=== PATIENT | female | born 1955 | race Caucasian/White ===

== ENCOUNTER → 2017-05-29 09:25 | Outpatient (CLI) | payer OTHER, SELFPAY ==
--- NOTE | 2017-05-29 09:28 | HPBI_ITS ---
MAMMOGRAPHY - BILATERAL SCREENING REASON FOR EXAM: Female, 61 years old. Routine annual screening examination. PERTINENT HISTORY: Non-contributory. TECHNIQUE: Digital bilateral breast marilee (3D mammographic acquisition) in the CC and MLO projections. 2-D mediolateral oblique (MLO) and craniocaudad (CC) views of both breasts were obtained. CAD: Full Field Digital Mammography with Computer Added Detection was performed. COMPARISON: Comparison is made with prior study dated March 14, 2016 and November 25, 2014. FINDINGS: Breast Composition: There are scattered areas of fibroglandular density. There are no dominant masses or suspicious calcifications. No other significant abnormalities are identified. There has been no significant change since the prior study. HPBI/SCREENING MAMM (CAD), BILAT IMPRESSION: Stable bilateral screening mammogram. Yearly follow-up mammogram recommended. (A) ASSESSMENT CATEGORY: BIRADS Category 1: Negative. A letter regarding these results will be sent to the patient by the facility within 30 days. Approximately 10% of breast cancers are not detected by mammography. A normal mammogram should not delay biopsy of a clinically suspicious abnormality. [id number] Electronically Signed: Joss Escalante MD at 9:26 EST Tel [phone], Service support ,
== END ==
PROVIDERS: Family Provider Family Medicine; PCP Family Medicine; Visit Provider Obstetrics & Gynecology
DX: Z12.31 Encounter for screening mammogram for malignant neoplasm of breast (principal)
CPT/HCPCS: 77063; 77067

== ENCOUNTER → 2018-10-20 | Outpatient (CLI) | payer OTHER, SELFPAY ==
[2018-10-20 17:54] LABS: Vitamin D,25 Hydroxy 71.1 ng/mL (29.95-100.01)
[2018-10-27 13:02] LABS: HPV Reflexed? NOT INDICATED
== END | disposition home or self-care (01) ==
LOC: LABSPEC 15:46
PROVIDERS: Visit Provider Obstetrics & Gynecology
DX: Z86.39 Personal history of other endocrine, nutritional and metabolic disease (principal); Z12.4 Encounter for screening for malignant neoplasm of cervix
CPT/HCPCS: 82306; 88175; G0145

== ENCOUNTER → 2018-11-07 | Outpatient (CLI) | payer OTHER, SELFPAY ==
--- NOTE | 2018-11-07 14:58 | BI_ITS ---
MAMMOGRAPHY - BILATERAL SCREENING 3-D TOMOSYNTHESIS REASON FOR EXAM: Female, 63 years old. Bilateral Screening 3-D tomosynthesis PERTINENT HISTORY: No significant family history. TECHNIQUE: 2-D mammograms and 3-D Tomosynthesis of the breast (s) were performed. CAD was performed. COMPARISON: None. FINDINGS: The breast composition is composed of scattered fibroglandular density. Scattered benign calcifications are seen. No dense spiculated masses or suspicious microcalcifications are identified, stable lucent centered calcifications in both breasts.. No architectural distortion is identified. There is no skin thickening or retraction. There has been no significant change since the prior study. BI/SCREEN MAMM (CAD) W/JOESPH BILAT IMPRESSION: No mammographic signs of malignancy. Routine yearly mammograms recommended. ASSESSMENT CATEGORY: BIRADS Category 1: Negative. A letter regarding these results will be sent to the patient by the facility within 30 days. FOLLOW UP RECOMMENDATION: Yearly follow up mammogram recommended. (A) Approximately 10% of breast cancers are not detected by mammography. A normal mammogram should not delay biopsy of a clinically suspicious abnormality. Electronically Signed: Jem Rubio MD at 7:55 EDT , Service support ,
== END | disposition home or self-care (01) ==
LOC: OPBI 14:57
PROVIDERS: Family Provider Family Medicine; PCP Family Medicine; Referring Provider Obstetrics & Gynecology; Visit Provider Obstetrics & Gynecology
DX: Z12.31 Encounter for screening mammogram for malignant neoplasm of breast (principal)
CPT/HCPCS: 77063; 77067

== ENCOUNTER → 2019-04-07 15:57 | Outpatient (CLI) | payer OTHER, SELFPAY ==
--- NOTE | 2019-04-07 16:02 | BD_ITS ---
STUDY: DUAL ENERGY X-RAY ABSORPTIOMETRY / DXA REASON FOR EXAM: Female, 63 years old. Early menopause. No loss of height. TECHNIQUE: Bone Mineral Density (BMD) measurements of lumbar spine and bilateral hips were obtained. COMPARISON: Comparison is made with prior examination dated April 04, 2017. FINDINGS: Lumbar Spine (L1-L4): g/cm2 (0.973) / T-score (-1.6) / Z-score (-0.1) Findings are suggestive of osteopenia with a moderate fracture risk. Left Femur Total: g/cm2 (0.866) / T-score (-1.1) / Z-score (0.0) Left Femoral Neck: g/cm2 (0.727) / T-score (-2.2) / Z-score (-0.8) Right Femur Total: g/cm2 (0.922) / T-score (-0.7) / Z-score (0.4) Right Femoral Neck: g/cm2 (0.768) / T-score (-1.9) / Z-score (-0.5) The T-Scores on the most recent prior examination were: Lumbar Spine (L1-L4): There has been improvement of bone density since the previous examination. Left Femur Total: which represents a worsening of 9.4%. Right Femur Total: which represents a worsening of 7%. BD/Dexa Bone Density Study IMPRESSION: The patient is considered osteopenic as outlined below according to World Seven Organization (WHO) criteria with a moderate fracture risk. There has been worsening of bone density since the previous examination. Reference Information: The T-score is the number of standard deviations above or below the standard which is normal for young adults at their peak bone mineral density. The World Health Organization (WHO) interprets the T-scores as follows: Above -1 Normal bone density Between -1 and -2.5 Osteopenia Equal to / or below -2.5 Osteoporosis As a practical clinical guideline, osteopenia may be graded as follows: Mild -1 through -1.5 Moderate -1.6 through -2.0 Severe -2.1 through -2.4 The Z-score is the number of standard deviations above or below age-matched controls. A Z-score of less than -1.5 would be considered abnormal. References: 1. NIH Osteoporosis and Related Bone Diseases http://www.osteo.org 2. International Society for Clinical Densitometry http://www.iscd.org 3. National Osteoporosis Foundation http://www.nof.org Electronically Signed: Joss Escalante, at 9:55 EST , Service support ,
== END ==
PROVIDERS: Family Provider Family Medicine; PCP Family Medicine; Referring Provider Obstetrics & Gynecology; Visit Provider Obstetrics & Gynecology
DX: M85.9 Disorder of bone density and structure, unspecified (principal); Z78.0 Asymptomatic menopausal state
CPT/HCPCS: 77080

== ENCOUNTER → 2020-08-24 13:58 | Outpatient (CLI) | payer MEDICARE, SELFPAY ==
--- NOTE | 2020-08-24 14:01 | BI_ITS ---
MAMMOGRAPHY - BILATERAL SCREENING REASON FOR EXAM: Female, 65 years old. Routine annual screening examination. PERTINENT HISTORY: Non-contributory. TECHNIQUE: Digital bilateral breast joepsh (3D mammographic acquisition) in the CC and MLO projections. 2-D mediolateral oblique (MLO) and craniocaudad (CC) views of both breasts were obtained. CAD: Full Field Digital Mammography with Computer Added Detection was performed. COMPARISON: Comparison is made with prior examination dated 11/07/2018 and 05/29/2017. FINDINGS: Breast Composition: There are scattered areas of fibroglandular density. There are no dominant masses or suspicious calcifications. No other significant abnormalities are identified. There has been no significant change since the prior study. BI/SCRN MAMM (CAD)W/JOESPH BILAT IMPRESSION: Stable bilateral screening mammogram. Yearly follow-up mammogram recommended. (A) ASSESSMENT CATEGORY: BIRADS Category 1: Negative. A letter regarding these results will be sent to the patient by the facility within 30 days. Approximately 10% of breast cancers are not detected by mammography. A normal mammogram should not delay biopsy of a clinically suspicious abnormality. [id number] Electronically Signed: Joss Escalante MD at 15:13 EDT , Service support ,
== END ==
PROVIDERS: PCP Family Medicine; Referring Provider Obstetrics & Gynecology; Visit Provider Obstetrics & Gynecology
DX: Z12.31 Encounter for screening mammogram for malignant neoplasm of breast (principal)
CPT/HCPCS: 77063; 77067

== ENCOUNTER → 2020-11-15 | Outpatient (CLI) | payer MEDICARE, SELFPAY ==
[2020-11-18 20:18] LABS: HPV APTIMA, High Risk Negative (Negative)
== END | disposition home or self-care (01) ==
LOC: LABSPEC 12:14
PROVIDERS: PCP Family Medicine; Visit Provider Obstetrics & Gynecology
DX: Z12.4 Encounter for screening for malignant neoplasm of cervix (principal); Z11.51 Encounter for screening for human papillomavirus (HPV)
CPT/HCPCS: 87624; 88175; G0145

== ENCOUNTER → 2021-03-28 | Outpatient (CLI) | payer MEDICARE, SELFPAY | END | disposition home or self-care (01) | LOC: LABSPEC 11:18 | PROVIDERS: PCP Family Medicine; Visit Provider Obstetrics & Gynecology | DX: R87.615 Unsatisfactory cytologic smear of cervix (principal) | CPT/HCPCS: 88175; G0145 ==

== ENCOUNTER → 2021-04-11 09:10 | Outpatient (CLI) | payer MEDICARE, SELFPAY ==
--- NOTE | 2021-04-11 09:17 | BD_ITS ---
STUDY: DUAL ENERGY X-RAY ABSORPTIOMETRY / DXA REASON FOR EXAM: Female, 65 years old. 733.00OsteoporosisBONE DENSITY REASON FOR EXAM TECHNIQUE: Bone Mineral Density (BMD) measurements of lumbar spine and bilateral hips were obtained. COMPARISON: Comparison is made with prior study of 04/07/2019. FINDINGS: Lumbar Spine (L1-L4): g/cm2 (0.775) / T-score (-2.2) / Z-score (-0.4) Findings are suggestive of osteopenia with a high fracture risk. Left Femur Total: g/cm2 (0.795) / T-score (-1.2) / Z-score (0.1) Left Femoral Neck: g/cm2 (0.594) / T-score (-2.3) / Z-score (-0.7) Right Femur Total: g/cm2 (0.777) / T-score (-1.4) / Z-score (-0.1) Right Femoral Neck: g/cm2 (0.635) / T-score (-1.9) / Z-score (-0.4) The T-Scores on the most recent prior examination were: Lumbar Spine (L1-L4): There has been worsening of bone density since the previous examination. Left Femur Total: which represents a worsening of 1.2%. Right Femur Total: which represents a worsening of 9.4%. BD/Dexa Bone Density Study IMPRESSION: The patient is considered osteopenic as outlined below according to World Seven Organization (WHO) criteria with a high fracture risk. There has been worsening of bone density since the previous examination. Reference Information: The T-score is the number of standard deviations above or below the standard which is normal for young adults at their peak bone mineral density. The World Health Organization (WHO) interprets the T-scores as follows: Above -1 Normal bone density Between -1 and -2.5 Osteopenia Equal to / or below -2.5 Osteoporosis As a practical clinical guideline, osteopenia may be graded as follows: Mild -1 through -1.5 Moderate -1.6 through -2.0 Severe -2.1 through -2.4 The Z-score is the number of standard deviations above or below age-matched controls. A Z-score of less than -1.5 would be considered abnormal. References: 1. NIH Osteoporosis and Related Bone Diseases www osteo.org 2. International Society for Clinical Densitometry www iscd.org 3. National Osteoporosis Foundation www nof.org Electronically Signed: Joss Escalante MD at 15:42 EST , Service support ,
== END ==
PROVIDERS: PCP Family Medicine; Referring Provider Obstetrics & Gynecology; Visit Provider Obstetrics & Gynecology
DX: M81.0 Age-related osteoporosis without current pathological fracture (principal); Z13.820 Encounter for screening for osteoporosis
CPT/HCPCS: 77080

== ENCOUNTER 2021-11-16 16:01 | Outpatient (CLI) | payer MEDICARE, SELFPAY ==
--- NOTE | 2021-11-16 16:04 | BI_ITS ---
MAMMOGRAPHY - BILATERAL SCREENING REASON FOR EXAM: Female, 66 years old. Routine annual screening examination. PERTINENT HISTORY: Non-contributory. TECHNIQUE: Digital bilateral breast joesph (3D mammographic acquisition) in the CC and MLO projections. 2-D mediolateral oblique (MLO) and craniocaudad (CC) views of both breasts were obtained. CAD: Full Field Digital Mammography with Computer Added Detection was performed. COMPARISON: Comparison is made with prior study dated 08/24/2020 and 11/07/2018. FINDINGS: Breast Composition: There are scattered areas of fibroglandular density. There are no dominant masses or suspicious calcifications. Stable small benign-appearing bilateral axillary lymph nodes. No other significant abnormalities are identified. There has been no significant change since the prior study. BI/SCRN MAMM (CAD)W/JOESPH BILAT IMPRESSION: Stable bilateral screening mammogram. Yearly follow-up mammogram recommended. (A) ASSESSMENT CATEGORY: BIRADS Category 2: Benign. A letter regarding these results will be sent to the patient by the facility within 30 days. Approximately 10% of breast cancers are not detected by mammography. A normal mammogram should not delay biopsy of a clinically suspicious abnormality. [id number] Electronically Signed: Joss Escalante MD at 8:17 EDT ,
== END 2021-11-16 23:59 | disposition home or self-care (01) ==
LOC: OPBI 16:02
PROVIDERS: PCP Family Medicine; Visit Provider Obstetrics & Gynecology
DX: Z12.31 Encounter for screening mammogram for malignant neoplasm of breast (principal)
CPT/HCPCS: 77063; 77067

== ENCOUNTER → 2021-11-23 | Outpatient (CLI) | payer MEDICARE, SELFPAY ==
[2021-11-23 12:21] LABS: Absolute Lymphocyte Count 1.81 X10^3/uL (0.83-4.51); Absolute Neutrophil Count 2.6 X10^3/uL (2.0-7.7); Basophil# 0.06 X10^3/uL; Basophil% 1.2 % (0-1); Hematocrit 45.9 % (37-47); Hemoglobin 14.7 g/dL (12.0-15.0); Lymphocyte # 1.81 X10^3/ul (0.83-4.51); Lymphocyte % 35.6 % (19-41); Mean Corpuscular Volume 96.8 fL (81-99); Mean Platelet Vol. 9.9 fl (6.2-12.0); Monocyte# 0.49 X10^3/uL; Monocyte% 9.6 % (0-10); NRBC Flagged by Analyzer 0 % (0-5); Neutrophil % 51.2 % (47-70); Platelet Count 283 K/mm3 (150-450); RBC Distribution Width CV 12.7 % (11.6-14.6); RBC Distribution Width SD 45.5 fl (35.1-43.9); Red Blood Count 4.74 M/mm3 (4.2-5.4); White Blood Count 5.1 K/mm3 (4.4-11.0)
[2021-11-23 12:34] LABS: PTHIN 43.7 pg/mL (18.4-80.1)
[2021-11-23 12:38] LABS: Vitamin D,25 Hydroxy 67.9 ng/mL
[2021-11-23 12:45] LABS: ALB/GLOB Ratio 1.1 RATIO (0.9-2.4); AST(SGOT) 20 U/L (15-37); Alanine Aminotransfer ALT/SGPT 30 U/L (13-56); Alkaline Phosphatase 106 U/L (45-117); Anion Gap 4 (5-15); BUN 25 mg/dL (7-18); BUN/Creat Ratio 30.1 RATIO (10-20); Calcium,Total 9.6 mg/dL (8.5-10.1); Chloride 102 mmol/L (98-107); Creatinine, Serum 0.83 mg/dL (0.55-1.02); EST Glomerular Filtration Rate 73 mL/min (>60); Est Glom Filt Rate - Afr Amer 88 mL/min (>60); Globulin 3.6 g/dL (2.2-4.2); Glucose 114 mg/dL (74-106); Potassium 3.7 mmol/L (3.5-5.1); Protein, Total 7.6 g/dL (6.4-8.2); Sodium Level 138 mmol/L (136-145); T4 Free Direct 0.98 ng/dL (0.76-1.46); Thyroid Stim Hormone (TSH) 2.65 uIU/mL (0.358-3.74)
[2021-11-23 13:16] LABS: Hemoglobin A1c 5.9 % (3.8-5.6)
== END | disposition home or self-care (01) ==
LOC: LAB 10:49
PROVIDERS: PCP Family Medicine; Visit Provider Internal Medicine Endocrinology, Diabetes & Metabolism
DX: M85.80 Other specified disorders of bone density and structure, unspecified site (principal); E55.9 Vitamin D deficiency, unspecified; R73.09 Other abnormal glucose; E06.3 Autoimmune thyroiditis
CPT/HCPCS: 36415; 80053; 82306; 83036; 83970; 84439; 84443; 85025

== ENCOUNTER → 2022-01-03 | Outpatient (CLI) | payer MEDICARE, SELFPAY ==
[2022-01-03 15:21] VITALS: BP 129/79; PULSE 73; RESP 14; TEMP 36.1; O2SAT 96; BMI 26.4
[2022-01-03] MEDS: Zoledronic Acid 5 MG 100 ML 200 MG IV (15:38)
[2022-01-03 16:14] VITALS: BP 123/84; PULSE 71
== END | disposition home or self-care (01) ==
LOC: MEDOUTP 15:03
PROVIDERS: PCP Family Medicine; Referring Provider Internal Medicine Endocrinology, Diabetes & Metabolism; Visit Provider Internal Medicine Endocrinology, Diabetes & Metabolism
DX: M85.80 Other specified disorders of bone density and structure, unspecified site (principal)
CPT/HCPCS: 96365; J7050; A4216; J3489

== ENCOUNTER → 2022-12-26 | Outpatient (CLI) | payer MEDICARE, SELFPAY ==
[2022-12-26 11:01] LABS: Vitamin D,25 Hydroxy 92.2 ng/mL
[2022-12-26 11:06] LABS: ALB/GLOB Ratio 1.1 RATIO (0.9-2.4); AST(SGOT) 19 U/L (15-37); Alanine Aminotransfer ALT/SGPT 26 U/L (13-56); Albumin, Serum 3.8 g/dL (3.2-5.0); Alkaline Phosphatase 100 U/L (45-117); Anion Gap 4 (5-15); BUN 18 mg/dL (7-18); BUN/Creat Ratio 21.3 RATIO (10-20); Calcium,Total 9.1 mg/dL (8.5-10.1); Chloride 106 mmol/L (98-107); Cholesterol 143 mg/dL (200); Creatinine, Serum 0.85 mg/dL (0.55-1.02); EST Glomerular Filtration Rate 71 mL/min (>60); Est Glom Filt Rate - Afr Amer 86 mL/min (>60); Globulin 3.5 g/dL (2.2-4.2); Glucose 104 mg/dL (74-106); High Density Lipoprotein 78 mg/dL; Protein, Total 7.3 g/dL (6.4-8.2); Sodium Level 138 mmol/L (136-145); T4 Free Direct 0.95 ng/dL (0.76-1.46); Triglycerides 75 mg/dL; Very Low Density Lipoprotein 15 mg/dL (5-40)
[2022-12-26 11:12] LABS: Hemoglobin A1c 5.9 % (3.8-5.6)
== END | disposition home or self-care (01) ==
LOC: PAVLAB 10:12
PROVIDERS: PCP Family Medicine; Referring Provider Internal Medicine Endocrinology, Diabetes & Metabolism; Visit Provider Internal Medicine Endocrinology, Diabetes & Metabolism
DX: E06.3 Autoimmune thyroiditis (principal); M85.80 Other specified disorders of bone density and structure, unspecified site; R73.03 Prediabetes; E55.9 Vitamin D deficiency, unspecified
CPT/HCPCS: 36415; 80053; 80061; 82306; 83036; 84439; 84443

== ENCOUNTER 2023-01-04 08:58 | Outpatient (CLI) | payer MEDICARE, SELFPAY ==
[2023-01-04 09:08] VITALS: BP 150/82; PULSE 65; RESP 16; TEMP 36.2; O2SAT 98; BMI 26.2
[2023-01-04] MEDS: 0.9% NaCl Peripheral Flush Adult/Peds IV (09:16)
[2023-01-04] MEDS: Zoledronic Acid 5 MG 100 ML 300 MG IV (09:26)
[2023-01-04 09:52] VITALS: BP 141/76; PULSE 64; RESP 16; TEMP 35.8; O2SAT 99
== END 2023-01-04 08:59 | disposition home or self-care (01) ==
LOC: MEDOUTP 08:59
PROVIDERS: PCP Family Medicine; Referring Provider Internal Medicine Endocrinology, Diabetes & Metabolism; Visit Provider Internal Medicine Endocrinology, Diabetes & Metabolism
DX: M85.89 Other specified disorders of bone density and structure, multiple sites (principal)
CPT/HCPCS: 96365; A4216; J3489

== ENCOUNTER → 2023-01-04 | Outpatient (CLI) | payer MEDICARE, SELFPAY ==
--- NOTE | 2023-01-04 09:57 | BI_ITS ---
MAMMOGRAPHY - BILATERAL SCREENING REASON FOR EXAM: Female, 67 years old. Routine annual screening examination. PERTINENT HISTORY: Non-contributory. TECHNIQUE: Digital bilateral breast joesph (3D mammographic acquisition) in the CC and MLO projections. 2-D mediolateral oblique (MLO) and craniocaudad (CC) views of both breasts were obtained. CAD: Full Field Digital Mammography with Computer Added Detection was performed. COMPARISON: Comparison is made with prior study dated November 16, 2021 and August 24, 2020. FINDINGS: Breast Composition: There are scattered areas of fibroglandular density. There are no dominant masses or suspicious calcifications. Stable small benign-appearing lateral axillary lymph nodes. No other significant abnormalities are identified. There has been no significant change since the prior study. BI/SCRN MAMM (CAD)W/JOESPH BILAT IMPRESSION: Stable bilateral screening mammogram. Yearly follow-up mammogram recommended. (A) ASSESSMENT CATEGORY: BIRADS Category 2: Benign. A letter regarding these results will be sent to the patient by the facility within 30 days. Approximately 10% of breast cancers are not detected by mammography. A normal mammogram should not delay biopsy of a clinically suspicious abnormality. [id number] Electronically Signed: Joss Escalante MD at 11:19 EDT ,
== END | disposition home or self-care (01) ==
PROVIDERS: PCP Family Medicine; Referring Provider Family Medicine; Visit Provider Family Medicine
DX: Z12.31 Encounter for screening mammogram for malignant neoplasm of breast (principal); M85.89 Other specified disorders of bone density and structure, multiple sites
CPT/HCPCS: 96365; 77063; 77067; A4216; J3489

== ENCOUNTER → 2024-03-16 | Outpatient (CLI) | payer MEDICARE, SELFPAY ==
--- NOTE | 2024-03-16 13:20 | BI_ITS ---
MAMMOGRAPHY - BILATERAL SCREENING 3-D TOMOSYNTHESIS REASON FOR EXAM: Female, 68 years old. SCREENING PERTINENT HISTORY: No significant family history. TECHNIQUE: 2-D mammograms and 3-D Tomosynthesis of the breast (s) were performed. CAD was performed. COMPARISON: 01/04/2023 FINDINGS: The breast composition is composed of scattered fibroglandular density. Scattered benign calcifications are seen. No dense spiculated masses or suspicious microcalcifications are identified. No architectural distortion is identified. There is no skin thickening or retraction. There has been no significant change since the prior study. BI/SCRN MAMM (CAD)W/JOESPH BILAT IMPRESSION: No mammographic signs of malignancy. Routine yearly mammograms recommended. ASSESSMENT CATEGORY: BIRADS Category 1: Negative. A letter regarding these results will be sent to the patient by the facility within 30 days. FOLLOW UP RECOMMENDATION: Yearly follow up mammogram recommended. (A) Approximately 10% of breast cancers are not detected by mammography. A normal mammogram should not delay biopsy of a clinically suspicious abnormality. Electronically Signed: Zhen Mercer MD at 16:28 EST ,
== END | disposition home or self-care (01) ==
LOC: OPBI 13:19
PROVIDERS: PCP Family Medicine; Referring Provider Family Medicine; Visit Provider Family Medicine
DX: Z12.31 Encounter for screening mammogram for malignant neoplasm of breast (principal)
CPT/HCPCS: 77063; 77067

== ENCOUNTER → 2024-08-12 | Outpatient (CLI) | payer MEDICARE, SELFPAY ==
[2024-08-12 11:00] LABS: Albumin, Serum 4.5 g/dL (3.4-4.8); BUN 17 mg/dL (4-19); BUN/Creat Ratio 21.9 RATIO (10-20); Creatinine, Serum 0.78 mg/dL (0.70-1.20); EST Glomerular Filtration Rate 83 (>60); Globulin 2.8 g/dL (2.2-4.2); Glucose 112 mg/dL (70-99); Protein, Total 7.4 g/dL (5.9-8.4)
[2024-08-12 11:01] LABS: ALB/GLOB Ratio 1.6 RATIO (0.9-2.4); AST(SGOT) 26 U/L (<=31); Alanine Aminotransfer ALT/SGPT 20 U/L (<=34); Alkaline Phosphatase 92 U/L (35-104); Anion Gap 10 (5-15); Calcium,Total 9.8 mg/dL (7.6-11.0); Carbon Dioxide 26.8 mmol/L (21.0-32.0); Chloride 103 mmol/L (98-108); Cholesterol 165 mg/dL (<=200); High Density Lipoprotein 83 mg/dL; Low Density Lipoprotein Calc. 68 mg/dL; Potassium 4.1 mmol/L (3.3-5.1); Sodium Level 139 mmol/L (133-145); Total Bilirubin 0.74 mg/dL (0.00-1.30); Triglycerides 69 mg/dL; Very Low Density Lipoprotein 14 mg/dL (5-40); cholesterol:hdl ratio screen 1.99
[2024-08-12 12:31] LABS: Vitamin D,25 Hydroxy 59.8 ng/mL (30-100)
[2024-08-13 16:41] LABS: Hematocrit 46.1 % (37-47); Hemoglobin 14.9 g/dL (12.0-15.0); Mean Corp Hgb Conc 32.3 g/dL (32-36); Mean Corpuscular Hgb 31.3 pg (27.0-32.0); Mean Corpuscular Volume 96.8 fL (81-99); Mean Platelet Vol. 10.4 fl (6.2-12.0); Platelet Count 286 K/mm3 (150-450); RBC Distribution Width CV 12.9 % (11.6-14.6); RBC Distribution Width SD 46.1 fl (35.1-43.9); Red Blood Count 4.76 M/mm3 (4.2-5.4)
== END | disposition home or self-care (01) ==
PROVIDERS: PCP Family Medicine; Referring Provider Internal Medicine Endocrinology, Diabetes & Metabolism; Visit Provider Internal Medicine Endocrinology, Diabetes & Metabolism
DX: M85.89 Other specified disorders of bone density and structure, multiple sites (principal); E06.3 Autoimmune thyroiditis; R73.03 Prediabetes; I25.10 Atherosclerotic heart disease of native coronary artery without angina pectoris; R73.02 Impaired glucose tolerance (oral); E55.9 Vitamin D deficiency, unspecified
CPT/HCPCS: 36415; 80053; 80061; 82306; 84439; 84443; 85027

== ENCOUNTER 2024-09-03 09:18 | Outpatient (CLI) | payer MEDICARE, SELFPAY ==
[2024-09-03 09:25] VITALS: BP 149/87; PULSE 71; RESP 16; TEMP 35.6; O2SAT 97
[2024-09-03] MEDS: 0.9% NaCl Peripheral Flush Adult IV (09:27)
[2024-09-03] MEDS: Zoledronic Acid 5 MG 100 ML 300 MG IV (09:36)
[2024-09-03] MEDS: 0.9% NaCl IVPB Med Flush (100mL) 15 ML IV (09:36)
[2024-09-03 10:08] VITALS: BP 142/79; PULSE 68; RESP 14; TEMP 36.2; O2SAT 98
== END 2024-09-03 23:59 | disposition home or self-care (01) ==
LOC: MEDOUTP 09:19
PROVIDERS: PCP Family Medicine; Referring Provider Internal Medicine Endocrinology, Diabetes & Metabolism; Visit Provider Internal Medicine Endocrinology, Diabetes & Metabolism
DX: M81.0 Age-related osteoporosis without current pathological fracture (principal)
CPT/HCPCS: 96365; A4216; J3489

== ENCOUNTER → 2025-03-19 | Outpatient (CLI) | payer MEDICARE, SELFPAY ==
--- NOTE | 2025-03-19 14:27 | BI_ITS ---
EXAM: SCRN MAMM (CAD)W/JOESPH BILAT DATE: 03/19/2025 CLINICAL HISTORY: F, Age 69 y/o , SCREENING TECHNIQUE: Procedure Code: [id number] Modality: MG Procedure: SCRN MAMM (CAD)W/JOESPH BILAT COMPARISON: Prior exam(s) dated 03/16/2024, 01/04/2023, and 11/16/2021. FINDINGS: TISSUE DENSITY: There are scattered areas of fibroglandular density. Bilateral Breast Mammographic Findings: There are no suspicious masses, suspicious clustered microcalcifications, architectural distortion or secondary signs of malignancy identified in either breast. Benign-appearing round microcalcifications and macrocalcifications are seen in both breasts. BI/SCRN MAMM (CAD)W/JOESPH BILAT IMPRESSION: Benign screening mammogram OVERALL FINAL ASSESSMENT BI-RADS 2: BENIGN RECOMMENDATION: Routine annual follow-up in 1 Year Additional Recommendation none A letter with findings and recommendations will be mailed to the patient. Reading Location: [id number]
--- OUTSIDE RECORDS SUMMARY | 2025-03-19 14:28 | XMS RPT_ITS | CCD ---
Author Organization [facility] Care Team Providers Care Precision Inspector Name Role Phone Tamara Ha Unavailable [phone] Tamara Ha Unavailable Unavailable Tamara Ha Unavailable Unavailable DewLuis Enrique Unavailable Unavailable PRIMARY MA [facility] ASH RN 1, [id number] Unava ilable Unavailable Tamara Ha Primary Care Provider [phone] Tamara Ha Unavailable [phone] TAMARA HA Admitting Unavailab le LELAND, TAMARA ALEJO Primary Care Unavailab le Dr. Tamara Ha Primary Care Provider [phone] Dr. Tamara Ha Referring Provider Dr. Refugio Houston Attending Provider [phone] Unavailable Unavailable Tamara Ha MD Primary Care Provider MALLORY CRAWFORD Referring Unavailable TAMARA HA Primary Care Unavailab MALLORY Gonzales Admitting Unavailable STENTAMARA SALAZAR Primary Care Unavailab MALLORY Gonzales Attending Unavailable Tamara Ha MD Primary Care Provider Tamara Ha MD Unavailable Tamara Ha MD Primary Care Provider Tamara Ha MD Unavailable [phone] Yuliana Alejandra Unavailable Unavailable MD TAMARA HA Attending Lauren HA, MD TAMARA ALEJO Referring MD TAMARA Alvarez Primary Care MD TAMARA Alvarez Primary Care Lauren MCKEON MD,PHD LISA ROWLEY Admitting Pari star MCKEON MD,PHD LISA ROWLEY Attending Pari alpeshilable MD LINDA,PHD LISA ROWLEY Referring Pari vailable Yuliana Alejandra Attending Unavailable STENCEL, MD TAMARA ALEJO Primary Care Unavai lable ASHUPIERRE Attending Unavailable STENCEL, MD TAMARA ALEJO Primary Care Unavai lable STENCEL, MD TAMARA ALEJO Primary Care Unavai lable STENCEL, MD TAMARA ALEJO Attending Unavai lable STENCEL, MD TAMARA ALEJO Referring Unavai lable STENCEL, MD TAMARA ALEJO Attending Unavai lable STENCEL, MD TAMARA ALEJO Referring Unavai lable STENCEL, MD TAMARA ALEJO Primary Care Unavai lable STENCEL, MD TAMARA ALEJO Attending Unavai lable STENCEL, MD TAMARA ALEJO Referring Unavai lable STENCEL, MD TAMARA ALEJO Primary Care Unavai lable STENCEL, MD TAMARA ALEJO Attending Unavai lable STENCEL, MD TAMARA ALEJO Referring Unavai lable STENCEL, MD TAMARA ALEJO Primary Care Unavai lable Stencel, Dr. Bay Primary Care Provider Dr. Tamara Ha Referring Provider Dr. Refugio Houston Attending Provider [phone] TAMARA HA Primary Care Unavailable Linda GALVAN PhD, Lisa Smart Unavailable Dr. Tamara Ha MD Primary Care Provider Dr. Refugio Houston MD Attending Provider Dr. Refugio Houston MD Referring Provider Tamara Ha MD Primary Care Provider [phone] Tamara Ha MD Unavailable [phone] Linda GALVAN PhD, Lisa Smart Unavailable Dr. Tamara Ha MD Referring Provider Tamara Ha Referring Unavailable Stenbao, Tamara Attending Unavailable Stencel, Tamara Primary Care Unavailable Refugio Houston Referring Unavailable Refugio Houston Attending Unavailable Stenbao, Tamara Primary Care Unavailable Stenbao, Tamara Primary Care Unavailable Refugio Houston Referring Unavailable Refugio Houston Attending Unavailable Stenbao, Tamara Primary Care Unavailable Refugio Houston Attending Unavailable Stencel, Tamara Referring Unavailable LISA MCKEON Attending Unavailable LISA MCKEON Referring Unavailable STENCEL, TAMARA D Primary Care Unavailable STENCEL, TAMARA D Primary Care Unavailable STENCEL, TAMARA D Primary Care Unavailable STENCEL, TAMARA D Referring Unavailable STENCEL, TAMARA D Primary Care Unavailable STENCEL, TAMARA D Primary Care Unavailable STENCEL, TAMARA D Referring Unavailable STENCEL, TAMARA D Attending Unavailable STENCEL, TAMARA D Referring Unavailable STENCEL, TAMARA D Primary Care Unavailable STENCEL, TAMARA D Primary Care Unavailable STENCEL, TAMARA D Referring Unavailable YULIANA ALEJANDRA Attending Unavailable STACEY, YULIANA G Referring Unavailable STENCEL, TAMARA D Primary Care Unavailable Allergies Allergy Classification Reported Allergen(s) Allergy Type Date of Onset Reaction(s) Facility Macrolides (antibiotic) (3 sources) Erythromycin; Translations: [Erythromycin TABS] Drug Allergy Abdominal pain [facility] [place]: Penicillins (antibiotic) (3 sources) Penicillins; Translations: [Penicillins] Drug Allergy Itching [facility] [place]: Sulfonamides (antibiotic) (3 sources) Sulfonamides (Antibiotic); Translations: [Sulfa Drugs] Drug Allergy Rash [facility] [place]: (18 sources) Penicillins; Translations: [PENICILLINS] Propensity to adverse reactions to drug 5 Itching [facility] Comment on above: rash (18 sources) Sulfonamides (Antibiotic); Translations: [SULFA (SULFONAMIDE ANTIBIOTICS)] Propensity to adverse reactions to drug 5 Itching [facility] (20 sources) Erythromycin; Translations: [Erythromycin TABS] Drug Allergy 2 Abdominal pain, GI Intolerance, Other (See Comments), Other [facility] (20 sources) Penicillins; Translations: [Penicillins] Allergy to drug (finding) Itching [facility] [place]: (20 sources) Sulfonamides (Antibiotic); Translations: [Sulfa Drugs] Allergy to drug (finding) Rash [facility] [place]: (6 sources) Penicillins Propensity to adverse reactions to drug 5 Itching [facility] (9 sources) Sulfonamides (Antibiotic) Propensity to adverse reactions to drug 5 Itching, Rash [facility] (1 source) Erythromycin; Translations: [ERYTHROMYCIN] Drug Allergy 2 [facility] Repository (1 source) Penicillin Drug Allergy 3 [facility] (1 source) Propensity to adverse reactions to drug 3 [facility] (3 sources) Penicillins Drug Allergy 3 Itching [facility] Work Phone: (3 sources) Erythromycin; Translations: [ERYTHROMYCIN BASE] Drug Allergy 3 [facility] Repository (1 source) Penicillins Drug allergy (disorder) 5 [facility] Rep[facility] (1 source) Sulfonamides (Antibiotic) Drug allergy (disorder) 5 [facility] Repository Medications Current Medications Medication Drug Class(es) Dates Sig (Normalized) Sig (Original) atorvastatin 40 mg oral tablet (20 sources) HMG-CoA Reductase Inhibitor Start: 02-24-2021 End: 01-08-2025 atorvastatin (Lipitor) 40 mg tablet Indications: Atherosclerosis 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 TAKE 1 TABLET ONCE DAILY 90 tablet 3 11/24/2024 Active cetirizine hydrochloride 10 mg oral tablet (20 sources) Histamine-1 Receptor Antagonist End: 08-14-2023 take 1 tablet by mouth once daily at bedtime cetirizine (ZyrTEC) 10 mg tablet Take 1 tablet (10 mg) by mouth once daily at bedtime. 08/14/2023 Discontinued (Med List Cleanup) cholecalciferol 1.25 mg oral capsule (8 sources) Vitamin D Start: 11-23-2021 take 1 capsule by mouth every week Cholecalciferol (Vitamin D3) 1,250 mcg (50,000 unit) capsule Active 1250 ug PO EVERY WEEK November 23, 2021 12:00am doxycycline hyclate 100 mg oral capsule (1 source) Tetracycline-class Drug Start: 10-25-2022 End: 11-01-2022 doxycycline (Vibramycin) 100 mg capsule Indications: Cellulitis of back except buttock Take 1 capsule (100 mg) by mouth 2 times a day for 7 days. Take with at least 8 ounces (large glass) of water, do not lie down for 30 minutes after 14 capsule 0 10/25/2022 11/01/2022 Active [id number] 0.3 ml EPINEPHrine 1 mg/ml auto-injector (1 source) alpha-Adrenergic Agonist, beta-Adrenergic Agonist, Catecholamine Start: 11-28-2022 [id number] Medication epinephrine 0.3 mg/0.3 mL injection, auto-injector epinephrine 0.3 mg/0.3 mL injection, auto-injector 0.3 mg/0.3 mL 1 Pen Needle as directed daily 11/28/2022 Active (Current) ergocalciferol 1.25 mg oral capsule (20 sources) Provitamin D2 Compound Start: 08-23-2024 End: 08-23-2025 take 1 capsule by mouth every week ergocalciferol (Vitamin D-2) 1250 mcg (50,000 units) capsule Indications: Osteopenia, unspecified location Take 1 capsule (1.25 mg) by mouth 1 (one) time per week. 12 capsule 3 08/23/2024 08/23/2025 Active Start: 08-25-2023 End: 08-24-2024 take 1 capsule by mouth every week ergocalciferol (Vitamin D-2) 1.25 MG (45246 UT) capsule Indications: Osteopenia, unspecified location Take 1 capsule (1,250 mcg) by mouth 1 (one) time per week. 12 capsule 3 08/25/2023 08/19/2024 Discontinued (Reorder) Start: 01-18-2020 End: 08-19-2023 take 1 capsule by mouth every week ergocalciferol (Vitamin D-2) 1.25 MG (07931 UT) capsule Indications: Osteopenia, unspecified location Take 1 capsule (1,250 mcg) by mouth 1 (one) time per week. 12 capsule 3 08/16/2022 08/19/2023 Discontinued (Reorder) ibuprofen 200 mg oral tablet (1 source) Nonsteroidal Anti-inflammatory Drug take 3 tablets by mouth every six hours as needed ibuprofen (ADVIL,MOTRIN) 200 MG tablet Take 3 (three) tablets (600 mg total) by mouth every 6 (six) hours as needed . 0 Active mecobalamin (5 sources) Start: Mecobalamin (Vitamin B12) Active 94761 MCG SC EVERY MONTH November 23, 2021 12:00am Start: 11-23-2021 Mecobalamin (V itamin B12) Active MCG SC EVERY MONTH November 23, 2021 12:00am Mecobalamin (Vitamin B12) 10,000 mcg recon soln (3 sources) Start: 11-23-2021 Mecobalamin (Vitamin B12) 10,000 mcg recon soln Active 41675 ug SC EVERY MONTH November 23, 2021 12:00am naproxen sodium 220 mg oral tablet (1 source) Nonsteroidal Anti-inflammatory Drug naproxen sodium (ANAPROX) 220 MG tablet Take 2 (two) tablets (440 mg total) by mouth . 0 Active pantoprazole 40 mg delayed release oral tablet (20 sources) Proton Pump Inhibitor Start: 11-22-2022 End: 11-28-2023 take 2 tablets by mouth once daily Pantoprazole 20 mg tablet,delayed release (DR/EC) Discontinued 40 mg PO DAILY November 22, 2022 9:30am November 28, 2023 9:36am Start: 11-22-2022 take 40 mg by mouth once daily Pantoprazole Active 40 MG PO DAILY November 22, 2022 9:30am Start: 01-30-2021 End: 08-19-2025 take 1 tablet by mouth once daily pantoprazole (ProtoNix) 40 mg EC tablet Indications: Gastroesophageal reflux disease without esophagitis Take 1 tablet (40 mg) by mouth once daily. 90 tablet 3 08/19/2024 08/19/2025 Active Start: 01-30-2021 End: 11-22-2022 take 1 tablet by mouth once daily Pantoprazole 20 mg tablet,delayed release (DR/EC) Discontinued 20 mg PO DAILY November 23, 2021 12:00am November 22, 2022 9:31am predniSONE 10 mg oral tablet (1 source) Start: 10-25-2022 End: 10-30-2022 take 4 tablets by mouth once daily predniSONE (Deltasone) 10 mg tablet Indications: Cellulitis of back except buttock Take 4 tablets (40 mg) by mouth once daily for 5 days. 20 tablet 0 10/25/2022 10/30/2022 Active 100 ml zoledronic acid 0.05 mg/ml injection (20 sources) Bisphosphonate Start: 01-31-2022 zoledronic aci d (Reclast) 5 mg/100 mL piggyback Reclast 5 MG/100ML Intravenous Solution Refills: 0 Start : 31-Jan-2022 Active 01/31/2022 Active Start: 01-31-2022 Reclast 5 MG/1 00ML Intravenous Solution Quantity: 0 Refills: 0 Ordered: 31-Jan-2022 DO Start : 31-Jan-2022 Active Start: 12-11-2021 End: 08-18-2024 Zoledronic Rpzp-Nuzytqdu-Amn er 5 mg/100 mL piggyback Discontinued 1 NMA .Route ONCE 100 0 November 28, 2023 9:36am August 18, 2024 12:05pm infuse over 20 minutes Completed/Discontinued Medications Medication Drug Class(es) Dates Sig (Normalized) Sig (Original) omeprazole 20 mg delayed release oral capsule (20 sources) Proton Pump Inhibitor Start: 01-18-2020 take 1 capsule by mouth once daily Omeprazole 20 MG Oral Capsule Delayed Release TAKE 1 CAPSULE Daily Quantity: 30 Refills: 0 Ordered: 25-Jan-2021 Tamara Ha MD Start : 18-Jan-2020 Active take 1 capsule by mouth once johnie ly Omeprazole 10 MG Oral Capsule Delayed Release TAKE 1 CAPSULE Daily Quantity: 90 Refills: 3 Tamara Ha MD Active 1 ml triamcinolone acetonide 40 mg/ml injection (14 sources) Corticosteroid Start: 09-29-2018 End: 09-29-2018 triamcinolone acetonide (KENALOG-40) injection 20 mg Start: 09-29-2018 End: 09-29-2018 triamcinolone acetonide (STEPH ALOG-40) injection 20 mg Start: 09-29-2018 End: 09-29-2018 triamcinolone acetonide (STEPH ALOG-40) injection 20 mg Start: 09-29-2018 End: 09-29-2018 triamcinolone acetonide (STEPH ALOG-40) injection 20 mg Start: 05-26-2018 End: 05-26-2018 triamcinolone acetonide (STEPH ALOG-40) injection 20 mg Start: 05-26-2018 End: 05-26-2018 triamcinolone acetonide (STEPH ALOG-40) injection 20 mg Start: 05-26-2018 End: 05-26-2018 triamcinolone acetonide (STEPH ALOG-40) injection 20 mg Start: 05-26-2018 End: 05-26-2018 triamcinolone acetonide (STEPH ALOG-40) injection 20 mg Start: 02-17-2018 End: 02-17-2018 triamcinolone acetonide (STEPH ALOG-40) injection 20 mg Start: 02-17-2018 End: 02-17-2018 triamcinolone acetonide (STEPH ALOG-40) injection 20 mg Start: 02-17-2018 End: 02-17-2018 triamcinolone acetonide (STEPH ALOG-40) injection 20 mg Start: 02-17-2018 End: 02-17-2018 triamcinolone acetonide (STEPH ALOG-40) injection 20 mg Start: 09-09-2017 End: 09-09-2017 triamcinolone acetonide (STEPH ALOG-40) injection 20 mg Start: 09-09-2017 End: 09-09-2017 triamcinolone acetonide (STEPH ALOG-40) injection 20 mg vitamin b12 1 mg/ml injectable solution (20 sources) Vitamin B12 Start: 08-19-2024 End: 08-19-2024 cyanocobalamin (Vitamin B-12) injection 1,000 mcg Start: 08-19-2024 End: 08-19-2024 inject 1000 ug by intramuscular injection once 1,000 mcg, intramuscular, Once, On Sat08/19/24 at 1100, For 1 dose Start: 03-18-2024 cyanocobalamin (Vitamin B-12) injection 1,000 mcg Start: 08-19-2023 End: 08-19-2023 cyanocobalamin (Vitamin B-12 ) injection 1,000 mcg Start: 08-19-2023 End: 08-19-2023 inject 1000 ug by intramuscular injection once 1,000 mcg, intramuscular, Once, On Sat08/19/23 at 1000, For 1 dose Start: 06-11-2022 inject 1 mL by intra muscular injection every month Cyanocobalamin 1000 MCG/ML Injection Solution INJECT 1 ML INTRAMUSCULARLY ONCE A MONTH Quantity: 0 Refills: 0 Ordered: 11-Jun-2022 Devon Rivera MD Start : 11-Jun-2022 Complete Start: 04-12-2022 inject 1 mL by intra muscular injection every month Cyanocobalamin 1000 MCG/ML Injection Solution INJECT 1 ML INTRAMUSCULARLY ONCE A MONTH Quantity: 0 Refills: 0 Ordered: 12-Apr-2022 Tamara Ha MD Start : 12-Apr-2022 Complete Start: 03-14-2022 inject 1 mL by intra muscular injection every month Cyanocobalamin 1000 MCG/ML Injection Solution INJECT 1 ML INTRAMUSCULARLY ONCE A MONTH Quantity: 0 Refills: 0 Ordered: 14-Mar-2022 Devon Rivera MD Start : 14-Mar-2022 Complete Start: 01-31-2022 inject 1 mL by intra muscular injection every month Cyanocobalamin 1000 MCG/ML Injection Solution INJECT 1 ML INTRAMUSCULARLY ONCE A MONTH Quantity: 0 Refills: 0 Ordered: 31-Jan-2022 Tamara Ha MD Start : 31-Jan-2022 Complete Start: 12-26-2021 inject 1 mL by intra muscular injection every month Cyanocobalamin 1000 MCG/ML Injection Solution INJECT 1 ML INTRAMUSCULARLY ONCE A MONTH Quantity: 0 Refills: 0 Ordered: 26-Dec-2021 Devon Rivera MD Start : 26-Dec-2021 Complete Start: 11-23-2021 inject 1 mL by intra muscular injection every month Cyanocobalamin 1000 MCG/ML Injection Solution INJECT 1 ML INTRAMUSCULARLY ONCE A MONTH Quantity: 0 Refills: 0 Ordered: 23-Nov-2021 Tamara Ha MD Start : 23-Nov-2021 Complete Start: 10-19-2021 inject 1 mL by intra muscular injection every month Cyanocobalamin 1000 MCG/ML Injection Solution INJECT 1 ML INTRAMUSCULARLY ONCE A MONTH Quantity: 0 Refills: 0 Ordered: 19-Oct-2021 Tamara Ha MD Start : 19-Oct-2021 Complete Start: 09-05-2021 inject 1 mL by intra muscular injection every month Cyanocobalamin 1000 MCG/ML Injection Solution INJECT 1 ML INTRAMUSCULARLY ONCE A MONTH Quantity: 0 Refills: 0 Ordered: 05-Sep-2021 Tamara Ha MD Start : 05-Sep-2021 Complete Start: 05-30-2021 inject 1 mL by intra muscular injection every month Cyanocobalamin 1000 MCG/ML Injection Solution INJECT 1 ML INTRAMUSCULARLY ONCE A MONTH Quantity: 0 Refills: 0 Ordered: 30-May-2021 Tamara Ha MD Start : 30-May-2021 Complete Start: 04-07-2021 inject 1 mL by intra muscular injection every month Cyanocobalamin 1000 MCG/ML Injection Solution INJECT 1 ML INTRAMUSCULARLY ONCE A MONTH Quantity: 0 Refills: 0 Ordered: 07-Apr-2021 Jasmyne Hernandez Start : 07-Apr-2021 Complete Start: 01-23-2021 inject 1 mL by intra muscular injection every month Cyanocobalamin 1000 MCG/ML Injection Solution INJECT 1 ML INTRAMUSCULARLY ONCE A MONTH Quantity: 0 Refills: 0 Ordered: 23-Jan-2021 Tamara Ha MD Start : 23-Jan-2021 Complete Start: 12-19-2020 inject 1 mL by intra muscular injection every month Cyanocobalamin 1000 MCG/ML Injection Solution INJECT 1 ML INTRAMUSCULARLY ONCE A MONTH Quantity: 0 Refills: 0 Ordered: 19-Dec-2020 Tamara Ha MD Start : 19-Dec-2020 Complete Start: 11-16-2020 inject 1 mL by intra muscular injection every month Cyanocobalamin 1000 MCG/ML Injection Solution INJECT 1 ML INTRAMUSCULARLY ONCE A MONTH Quantity: 0 Refills: 0 Ordered: 16-Nov-2020 Devon Rivera MD Start : 16-Nov-2020 Complete Start: 10-11-2020 cyanocobalamin (B-12) 1,000 mcg/mL injection Inject 1 mL (1,000 mcg total) into the shoulder, thigh, or buttocks . 0 10/11/2020 Active Start: 10-11-2020 inject 1 mL by intra muscular injection every month Cyanocobalamin 1000 MCG/ML Injection Solution INJECT 1 ML INTRAMUSCULARLY ONCE A MONTH Quantity: 0 Refills: 0 Ordered: 11-Oct-2020 Osman Mcgrath MD Start : 11-Oct-2020 Complete Problems Active Problems Problem Classification Problem Date Documented Date Episodic/Chronic Coronary atherosclerosis and other heart disease (20 sources) Coronary atherosclerosis; Translations: [Coronary atherosclerosis of ramona coronary artery] Onset: 06-16-2022 08-16-2022 Chronic Disorders of lipid metabolism (9 sources) Mixed hyperlipidemia; Translations: [Mixed hyperlipidemia] Onset: 08-19-2023 08-19-2023 Chronic Esophageal disorders (20 sources) Gastroesophageal reflux disease; Translations: [Esophageal reflux] Onset: 06-16-2022 08-16-2022 Chronic Melanomas of skin (7 sources) 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, including shoulder; Translations: [Malignant melanoma of skin of upper limb, including shoulder] Onset: 08-19-2024 12-06-2023 Chronic Nutritional deficiencies (13 sources) Vitamin D deficiency; Translations: [Vitamin D deficiency, unspecified] Chronic Nutritional deficiencies (20 sources) Cobalamin deficiency; Translations: [Other B-complex deficiencies] Onset: 06-16-2022 08-16-2022 Episodic Osteoarthritis (20 sources) Primary gonarthrosis, bilateral; Translations: [Osteoarthritis of knee] Onset: 06-11-2022 Chronic Osteoporosis (1 source) Age-related osteoporosis without current pathological fracture; Translations: [Age-related osteoporosis without current pathological fracture] Onset: 09-08-2024 Chronic Other and unspecified benign neoplasm (1 source) Melanocytic nevi of trunk Onset: 11-28-2022 Episodic Other and unspecified benign neoplasm (2 sources) Melanocytic nevi of right upper limb, including shoulder Onset: 11-28-2022 Episodic Other and unspecified benign neoplasm (1 source) Melanocytic nevi of left upper limb, including shoulder Onset: 11-28-2022 Episodic Other and unspecified benign neoplasm (1 source) Melanocytic nevi of right lower limb, including hip Onset: 11-28-2022 Episodic Other and unspecified benign neoplasm (1 source) Melanocytic nevi of left lower limb, including hip Onset: 11-28-2022 Episodic Other and unspecified benign neoplasm (1 source) Multiple benign melanocytic nevi ; Translations: [Melanocytic nevi, unspecified] 10-13-2024 Episodic Other connective tissue disease (1 source) Bilateral metatarsalgia; Translations: [Metatarsalgia, right foot] Episodic Other connective tissue disease (2 sources) Pain in right foot; Translations: [Pain in right foot] Onset: 06-11-2022 Episodic Other connective tissue disease (2 sources) Metatarsalgia, right foot; Translations: [Metatarsalgia, right foot] Onset: 06-11-2022 Episodic Other connective tissue disease (2 sources) Metatarsalgia, left foot; Translations: [Metatarsalgia, left foot] Onset: 06-11-2022 Episodic Other hematologic conditions (1 source) Erythrocytosis; 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] 12-20-2024 Episodic Other hematologic conditions (2 sources) Secondary polycythemia; 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] Onset: 12-22-2024 Episodic Other inflammatory condition of skin (1 source) Psoriasis of nail; Translations: [Psoriasis, unspecified] 10-13-2024 Chronic Other inflammatory condition of skin (2 sources) Psoriasis, unspecified; Translations: [Psoriasis, unspecified] Onset: 10-13-2024 Chronic Other non-traumatic joint disorders (6 sources) Knee pain; Translations: [Left knee pain] Episodic Other skin disorders (1 source) Lentiginosis; Translations: [Other melanin hyperpigmentation] 10-13-2024 Episodic Other skin disorders (1 source) Seborrheic keratosis; Translations: [Other seborrheic keratosis] 10-13-2024 Episodic Residual codes; unclassified (20 sources) Past history of procedure; Translations: [Other specified personal history presenting hazards to health] Episodic Residual codes; unclassified (1 source) Family history of malignant neoplasm of skin; Translations: [Family history of malignant neoplasm of other organs or systems] 10-13-2024 Episodic Skin and subcutaneous tissue infections (1 source) Cellulitis of skin of back; Translations: [Cellulitis of back [any part except buttock]] 10-25-2022 Episodic Thyroid disorders (20 sources) Autoimmune thyroiditis; Translations: [Autoimmune thyroiditis] Onset: 08-16-2022 Chronic Comment on above: History of Grave's d isease, remission after methimazole. Unclassified (1 source) 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 08-19-2024 Past or Other Problems Problem Classification Problem Date Documented Da te Episodic/Chronic Allergic reactions (3 sources) Solar degeneration; Translations: [Other skin changes due to chronic exposure to nonionizing radiation] Onset: 10-13-2024 10-13-2024 Episodic Diabetes mellitus without complication (20 sources) Hyperglycemia; Translations: [Impaired fasting glucose] Onset: 06-16-2022 Episodic Melanomas of skin (3 sources) History of malignant melanoma of the skin; Translations: [Personal history of malignant melanoma of skin] Onset: 10-13-2024 10-13-2024 Episodic Neoplasms of unspecified nature or uncertain behavior (19 sources) Cutaneous mastocytosis; 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] Onset: 08-14-2022 08-13-2023 Episodic Other and unspecified benign neoplasm (2 sources) Melanocytic nevi, unspecified; Translations: [Melanocytic nevi, unspecified] Onset: 10-13-2024 Episodic Other bone disease and musculoskeletal deformities (20 sources) Osteopenia; Translations: [Other specified disorders of bone density and structure, unspecified site] Onset: 06-16-2022 08-16-2022 Episodic Other bone disease and musculoskeletal deformities (7 sources) Other specified disorders of bone density and structure, unspecified site; Translations: [Disorder of bone and cartilage, unspecified] Onset: 06-16-2022 Episodic Other bone disease and musculoskeletal deformities (1 source) Other specified disorders of bone density and structure, multiple sites; Translations: [Other specified disorders of bone density and structure, multiple sites] Onset: 08-17-2024 Episodic Other non-traumatic joint disorders (20 sources) Pain in left knee; Translations: [Left knee pain] Onset: 06-16-2022 06-16-2022 Episodic Other non-traumatic joint disorders (2 sources) Pain in left knee; Translations: [Pain in left knee] Onset: 06-16-2022 06-16-2022 Episodic Other non-traumatic joint disorders (2 sources) Pain in right knee; Translations: [Pain in right knee] Onset: 06-16-2022 Resolved: 08-16-2022 08-16-2022 Episodic Other non-traumatic joint disorders (6 sources) Pain in right knee; Translations: [Pain in joint, lower leg] Onset: 06-16-2022 Resolved: 08-16-2022 08-16-2022 Episodic Other nutritional; endocrine; and metabolic disorders (12 sources) Overweight in adulthood with body mass index of 25 or more but less than 30; Translations: [Overweight] Onset: 06-16-2022 06-16-2022 Episodic Other screening for suspected conditions (not mental disorders or infectious disease) (20 sources) Patient encounter status; Translations: [Screening for other and unspecified cardiovascular conditions] Onset: 04-12-2024 10-13-2024 Episodic Other skin disorders (3 sources) Other melanin hyperpigmentation; Translations: [Other melanin hyperpigmentation] Onset: 11-28-2022 Episodic Other skin disorders (3 sources) Other seborrheic keratosis; Translations: [Other seborrheic keratosis] Onset: 11-28-2022 Episodic Residual codes; unclassified (4 sources) Family history of malignant melanoma; Translations: [Family history of malignant neoplasm of other organs or systems] Onset: 11-19-2023 11-19-2023 Episodic Residual codes; unclassified (2 sources) Family history of malignant neoplasm of other organs or systems; Translations: [Family history of malignant neoplasm of other organs or systems] Onset: 10-13-2024 Episodic Unclassified (1 source) Arthritis of right knee Unclassified (1 source) Left knee pain, unspecified chronicity Unclassified (8 sources) Onset: 08-16-2022 Resolved: 08-19-2024 08-16-2022 Unclassified (3 sources) Patient encounter status 08-19-2024 NEGATED: Highlighted row has not occurred!Residual codes; unclassified (20 sources) Disease Episodic Results Test Name Value Interpretation Reference Range Facility CBC W Auto Differential pane l (Bld)on 12-22-2024 Basophils (Bld) [#/Vol] 0.04 10*3/uL [facility] Basophils/100 WBC (Bld) 0.8 % 0.0 - 2.0 % [facility] Eosinophils (Bld) [#/Vol] 0.20 10*3/uL [facility] Eosinophils/100 WBC (Bld) 4.0 % 0.0 - 6.0 % [facility] Erythrocyte distribution width (RBC) [Ratio] 12.8 % 11.5 - 14.5 % [facility] Hematocrit (Bld) [Volume fraction] 46.4 % High 36.0 - 46.0 % [facility] Hemoglobin (Bld) [Mass/Vol] 15.2 g/dL 12.0 - 16.0 g/dL [facility] Immature granulocytes (Bld) [#/Vol] 0.01 10*3/uL [facility] Immature granulocytes/100 WBC (Bld) 0.2 % 0.0 - 0.9 % [facility] Comment on above: Immature Granulocyte Count (IG) includes promyelocytes, myelocytes and metamyelocytes but does not include bands. Percent differential counts (%) should be interpreted in the context of the absolute cell counts (cells/UL). Interpretation and review of laboratory results Abnormal [facility] Lymphocytes (Bld) [#/Vol] 2.42 10*3/uL [facility] Lymphocytes/100 WBC (Bld) 48.8 % 13.0 - 44.0 % [facility] MCH (RBC) [Entitic mass] 31.0 pg 26.0 - 34.0 pg [facility] MCHC (RBC) [Mass/Vol] 32.8 g/dL 32.0 - 36.0 g/dL [facility] MCV (RBC) [Entitic vol] 95 fL 80 - 100 fL [facility] Monocytes (Bld) [#/Vol] 0.41 10*3/uL [facility] Monocytes/100 WBC (Bld) 8.3 % 2.0 - 10.0 % [facility] Neutrophils (Bld) [#/Vol] 1.88 10*3/uL [facility] Comment on above: Percent differential counts (%) should be interpreted in the context of the absolute cell counts (cells/uL). Neutrophils/100 WBC (Bld) 37.9 % 40.0 - 80.0 % [facility] Nucleated RBC/100 WBC (Bld) [Ratio] [facility] Comment on above: Not Measured Platelets (Bld) [#/Vol] 260 10*3/uL [facility] RBC (Bld) [#/Vol] 4.90 10*6/uL [facility] WBC (Bld) [#/Vol] 5.0 10*3/uL [facility] Basophils (Bld) [#/Vol] 0.04 x10*3/uL Normal 0.00-0.10 [facility] Comment on above: Performed By: #### 5 7021-8 #### OTIS Fowler ([id number]) [facility] ([facility]) [address] [place] [address] Basophils/100 WBC (Bld) 0.8 % Normal 0.0-2.0 [facility] Comment on above: Performed By: #### 5 7021-8 #### OTIS Fowler ([id number]) [facility] ([facility]) [address] [place] [address] Eosinophils (Bld) [#/Vol] 0.20 x10*3/uL Normal 0.00-0.70 [facility] Comment on above: Performed By: #### 5 7021-8 #### OTIS Fowler ([id number]) [facility] ([facility]) [address] [place] [address] 45894 Eosinophils/100 WBC (Bld) 4.0 % Normal 0.0-6.0 [facility] Comment on above: Performed By: #### 5 7021-8 #### OTIS Fowler ([id number]) [facility] ([facility]) [address] [place] [address] 32508 Erythrocyte distribution width (RBC) [Ratio] 12.8 % Normal 11.5-14.5 [facility] Comment on above: Performed By: #### 5 7021-8 #### OTIS Fowler ([id number]) [facility] ([facility]) [address] [place] [address] 32365 Hematocrit (Bld) [Volume fraction] 46.4 % High 36.0-46.0 [facility] Comment on above: Performed By: #### 5 7021-8 #### OTIS Fowler ([id number]) [facility] ([facility]) [address] [place] [address] 73342 Hemoglobin (Bld) [Mass/Vol] 15.2 g/dL Normal 12.0-16.0 [facility] Comment on above: Performed By: #### 5 7021-8 #### OTIS Fowler ([id number]) [facility] ([facility]) [address] [place] [address]18 Immature granulocytes (Bld) [#/Vol] 0.01 x10*3/uL Normal 0.00-0.70 [facility] Comment on above: Performed By: #### 5 7021-8 #### OTIS Fowler ([id number]) [facility] ([facility]) [address] [place] [address] 52809 Immature granulocytes/100 WBC (Bld) 0.2 % Normal 0.0-0.9 [facility] Comment on above: Result Comment: Mary Beth ture Granulocyte Count (IG) includes promyelocytes, myelocytes and metamyelocytes but does not include bands. Percent differential counts (%) should be interpreted in the context of the absolute cell counts (cells/UL). Performed By: #### 5 7021-8 #### OTIS Fowler ([id number]) [facility] ([facility]) [address] [place] [address] 06493 Lymphocytes (Bld) [#/Vol] 2.42 x10*3/uL Normal 1.20-4.80 [facility] Comment on above: Performed By: #### 5 7021-8 #### OTIS Fowler ([id number]) [facility] ([facility]) [address] [place] [address] 30746 Lymphocytes/100 WBC (Bld) 48.8 % Normal 13.0-44.0 [facility] Comment on above: Performed By: #### 5 7021-8 #### OTIS Fowler ([id number]) [facility] ([facility]) [address] [place] [address] 73320 MCH (RBC) [Entitic mass] 31.0 pg Normal 26.0-34.0 [facility] Comment on above: Performed By: #### 5 7021-8 #### OTIS Fowler ([id number]) [facility] ([facility]) [address] [place] [address] 22751 MCHC (RBC) [Mass/Vol] 32.8 g/dL Normal 32.0-36.0 [facility] Comment on above: Performed By: #### 5 7021-8 #### OTIS Fowler ([id number]) [facility] ([facility]) [address] [place] [address] 73911 MCV (RBC) [Entitic vol] 95 fL Normal 80-100 [facility] Comment on above: Performed By: #### 5 7021-8 #### OTIS Fowler ([id number]) [facility] ([facility]) [address] [place] [address] 14875 Monocytes (Bld) [#/Vol] 0.41 x10*3/uL Normal 0.10-1.00 [facility] Comment on above: Performed By: #### 5 7021-8 #### OTIS Fowler ([id number]) [facility] ([facility]) [address] [place] [address] 58301 Monocytes/100 WBC (Bld) 8.3 % Normal 2.0-10.0 [facility] Comment on above: Performed By: #### 5 7021-8 #### OTIS Fowler ([id number]) [facility] ([facility]) [address] [place] [address] 04633 Neutrophils (Bld) [#/Vol] 1.88 x10*3/uL Normal 1.20-7.70 [facility] Comment on above: Result Comment: Perc ent differential counts (%) should be interpreted in the context of the absolute cell counts (cells/uL). Performed By: #### 5 7021-8 #### OTIS Fowler ([id number]) [facility] ([facility]) [address] [place] [address] 54734 Neutrophils/100 WBC (Bld) 37.9 % Normal 40.0-80.0 [facility] Comment on above: Performed By: #### 5 7021-8 #### OTIS Fowler ([id number]) [facility] ([facility]) [address] [place] [address] 76768 Nucleated RBC/100 WBC (Bld) [Ratio] Normal [facility] Comment on above: Result Comment: Not Measured Performed By: #### 5 7021-8 #### OTIS Fowler ([id number]) [facility] ([facility]) [address] [place] [address] 23184 Platelets (Bld) [#/Vol] 260 x10*3/uL Normal 150-450 [facility] Comment on above: Performed By: #### 5 7021-8 #### OTIS Fowler ([id number]) [facility] ([facility]) [address] [place] [address] RBC (Bld) [#/Vol] 4.90 x10*6/uL Normal 4.00-5.20 [facility] Comment on above: Performed By: #### 5 7021-8 #### OTIS Fowler ([id number]) [facility] ([facility]) [address] [place] [address] 49111 WBC (Bld) [#/Vol] 5.0 x10*3/uL Normal 4.4-11.3 [facility] Comment on above: Performed By: #### 5 7021-8 #### OTIS Fowler ([id number]) [facility] ([facility]) [address] [place] [address] 73820 Comprehensive metabolic 2000 panelon 12-22-2024 Albumin BCP dye [Mass/Vol] 4.8 g/dL Normal 3.4-5.0 [facility] Comment on above: Performed By: #### 2 4323-8 #### TRAVON Mckeon ([id number]) [facility] ([facility]) [address] [place] [address] ALP [Catalytic activity/Vol] 69 U/L Normal 33-136 [facility] Comment on above: Performed By: #### 2 4323-8 #### TRAVON Mckeon ([id number]) [facility] ([facility]) [address] [place] [address] ALT With P-5'-P [Catalytic activity/Vol] 18 U/L Normal 7-45 [facility] Comment on above: Result Comment: Marielena ents treated with Sulfasalazine may generate falsely decreased results for ALT. Performed By: #### 2 4323-8 #### TRAVON Mckeon ([id number]) [facility] ([facility]) [address] [place] [address] Anion gap [Moles/Vol] 15 mmol/L Normal [facility] Comment on above: Performed By: #### 2 4323-8 #### TRAVON Mckeon ([id number]) [facility] ([facility]) [address] [place] [address] AST With P-5'-P [Catalytic activity/Vol] 20 U/L Normal 9-39 [facility] Comment on above: Performed By: #### 2 4323-8 #### TRAVON Mckeon ([id number]) [facility] ([facility]) [address] [place] [address] Bilirubin [Mass/Vol] 0.8 mg/dL Normal 0.0-1.2 [facility] Comment on above: Performed By: #### 2 4323-8 #### TRAVON Mckeon ([id number]) [facility] ([facility]) [address] [place] [address] 12511 Calcium [Mass/Vol] 10.3 mg/dL Normal 8.6-10.6 [facility] Comment on above: Performed By: #### 2 4323-8 #### TRAVON Mckeon ([id number]) [facility] ([facility]) [address] [place] [address] 49133 Chloride [Moles/Vol] 102 mmol/L Normal 98-107 [facility] Comment on above: Performed By: #### 2 4323-8 #### TRAVON Mckeon ([id number]) [facility] ([facility]) [address] [place] [address] CO2 [Moles/Vol] 28 mmol/L Normal 21-32 [facility] Comment on above: Performed By: #### 2 4323-8 #### TRAVON Mckeon ([id number]) [facility] ([facility]) [address] [place] [address] Creatinine [Mass/Vol] 0.89 mg/dL Normal 0.50-1.05 [facility] Comment on above: Performed By: #### 2 4323-8 #### TRAVON Mckeon ([id number]) [facility] ([facility]) [address] [place] [address] 98206 Glomerular filtration rate 70 mL/min/1.73m*2 Normal >60 [facility] Comment on above: Result Comment: Calc ulations of estimated GFR are performed using the 2020 CKD-EPI Study Refit equation without the race variable for the IDMS-Traceable creatinine methods. https://jasn.asnjournals.org/content//ASN.83272 60519 Performed By: #### 2 4323-8 #### TRAVON Mckeon ([id number]) [facility] ([facility]) [address] [place] [address] 76677 Glucose [Mass/Vol] 104 mg/dL High 74-99 [facility] Comment on above: Performed By: #### 2 4323-8 #### TRAVON Mckeon ([id number]) [facility] ([facility]) [address] [place] [address] 29979 Potassium [Moles/Vol] 5.0 mmol/L Normal 3.5-5.3 [facility] Comment on above: Performed By: #### 2 4323-8 #### TRAVON Mckeon ([id number]) [facility] ([facility]) [address] [place] [address] 37594 Protein [Mass/Vol] 7.1 g/dL Normal 6.4-8.2 [facility] Comment on above: Performed By: #### 2 4323-8 #### TRAVON BUCHANAN L ([id number]) [facility] ([facility]) [address] [place] [address] 66901 Sodium [Moles/Vol] 140 mmol/L Normal 136-145 [facility] Comment on above: Performed By: #### 2 4323-8 #### TRAVON BUCHANAN L ([id number]) [facility] ([facility]) [address] [place] [address] 34579 Urea nitrogen [Mass/Vol] 18 mg/dL Normal 6-23 [facility] Comment on above: Performed By: #### 2 4323-8 #### TRAVON Mckeon ([id number]) [facility] ([facility]) [address] [place] [id number] Erythropoietinon 12-22-2024 Erythropoietin (EPO) Qn 4 mU/mL Normal 4-27 [facility] Comment on above: Result Comment: INTE RPRETIVE INFORMATION: Erythropoietin Normal serum concentrations of erythropoietin for 95% of individuals with normal hematocrits range from 4-27 mU/mL. As the hematocrit is lowered by iron deficiency, aplastic, or hemolytic anemia, the concentration of erythropoietin increases as shown in the graph below. In the absence of anemia, elevated concentrations are seen in renal tumors, as a manifestation of renal transplant rejection, and in secondary polycythemia. Low values may be observed in hemochromatosis. Expected Erythropoietin Concentrations in Patients with Uncomplicated Anemia Erythropoietin (mU/mL) 100,000 - + + 10,000 - +....... + ....... 1,000 - + ....... + ........ 100 - + ........ + ........ 10 - + ........ +---+---+---+---+---+---+ 10 20 30 40 50 60 70 (Hematocrit %) (Contributions To Nephrology 1988:66:54-62) Decreased erythropoietin concentrations with an elevated hematocrit are observed in patients with polycythemia rubra vera, and with a decreased hematocrit in patients with HIV infection who are receiving AZT. Patients on AZT who have anemia and erythropoietin concentrations of less than or equal to 500 mU/mL may benefit from therapy with recombinant EPO (NEJ 322:[id number],1989). Performed By: [facility] [address] [place] [address] [employer] Rep[employer]r: Reagan Collins MD, PhD CLIA Number: [id number] Performed By: #### 1 5061-5 #### [employer] [facility]) ([id number]) [address] [place] [address] Tryptaseon 12-22-2024 Tryptase [Mass/Vol] 3.4 ug/L Normal <=10.9 [facility] Comment on above: Result Comment: Perf ormed By: [facility] [address] [place] [address] [employer] Rep[employer]r: Reagan Collins MD, PhD CLIA Number: [id number] Performed By: #### 2 1582-2 #### [facility] ([facility]) ([id number]) [address] [place] [address] Endocrinology Visit Reporton 11-26-2024 Endocrinology Visit Report [facility] [address] [facility] [place] [address] OFFICE VISIT Date of Service: 11/26/24 MR#: [id number] Acct: [id number] Name: URBANO MUSA MAGDALENA Rep #: [id number] : 1955 Provider: Bing Au Age/Sex: 69/F Location: [facility] Status: Signed Intake Vital Signs 11/28/23 09:31 09/03/24 09:25 11/26/24 13:58 Height 5 ft 1 in 5 ft 1 in 5 ft 1 in Weight: 145 lb BMI 27.3 BP 151/84 H Blood Pressure Location Rt brachial Position Sitting Pulse 56 L Pulse Source Monitor Pulse Oximetry (%) 97 Oxygen Delivery Method room air Intake Visit Reasons: 1 Y FU Chief Complaint: reclast Is patient in pain?: No Allergies Penicillins Allergy (Severe, Verified 11/26/24 14:00) Swelling Sulfa (Sulfonamide Antibiotics) Allergy (Intermediate, Verified 11/26/24 14:00) Rash erythromycin base Adverse Reaction (Severe, Verified 11/26/24 14:00) Abd cramps/diarrhea Medications ???Medication ???Instructions ???Recorded ???Confirmed ???Type atorvastatin 40 mg tablet 40 mg PO DAILY 11/23/21 11/26/24 H istory cholecalciferol (vitamin D3) 1,250 1,250 mcg PO QWEEK 11/23/2111/13 History mcg (50,000 unit) capsule mecobalamin (vitamin B12) 10,000 10,000 mcg subcut QMONTH 11/23/21 11/26/24 History mcg solution for injection pantoprazole 40 mg tablet,delayed 40 mg PO QDAY 11/28/23 11/26/24 H istory release zoledronic acid 5 mg/100 mL in 1 ea .Route ONCE #100 mL 08/18/24 11/26/24 Rx mannitol 5 %-water intravenous piggybck Have you fallen in the past year?: No PFSH Medical History Autoimmune thyroiditis Vitamin D deficiency Prediabetes Urticaria pigmentosa Thyroid disease Osteopenia Osteoarthritis GERD (gastroesophageal reflux disease) Carpal tunnel syndrome Bone fracture Surgical History History of knee replacement History of 3 sections Family History Other Autoimmune disorder Diabetes Heart disease Hypertension Melanoma Myocardial infarction Osteoporosis Social History alcohol intake: current alcohol intake frequency: 0-2 drinks per day HPI HPI Chief Complaint: reclast Details: URBANO MUSA, is a 69 F who presents to the office today for follow up. 1. Osteopenia T-scores -2.2 in LS spine and -1.9 in RFN She has received 2 infusions of Reclast. She had a tooth implant that healed well. 2. History of Graves disease In remission, previously treated with anti-thyroid medication. 3. She has pre-diabetes A1C was 6% last year, 5.8% this year. ROS Const Constitutional: No fatigue or weight change ENT ENT: No dizziness/vertigo Cardio Cardiology: No chest pain at rest, chest pain with exertion, shortness of breath or palpitations Skin Skin: No wounds Endo Endocrine: No fatigue or weight change Exam Const General: cooperative, healthy appearing, comfortable, no acute distress, well developed and not cushingoid Nutritional Appearance: well nourished Orientation: alert, awake and oriented x3 HENMT Head: normal to inspection Ears: hearing grossly normal bilaterally Nose: external nose normal Mouth: oral mucosae normal Eyes General: appearance normal, both eyes and all related structures Alignment and Position: alignment normal Periorbital: periorbital findings normal Eyelids: eyelids normal Conjunctivae: conjunctivae normal Neck Neck: normal visual inspection Neck mass: No Thyroid: thyroid normal Carotids: no bruits Lymphatic: no lymphadenopathy noted Chest Chest palpation inspection: normal inspection of the chest Resp Effort Inspection: normal respiratory effort, able to speak in complete sentences, symmetric chest movement, no audible wheezes and no cough Auscultation: Bilateral: Clear to Auscultation Cardio Rate: regular rate Rhythm: regular rhythm Pulses: posterior tibial pulses present GI Inspection: normal to inspection Auscultation: normal bowel sounds Palpation: soft and no hepatosplenomegaly Skin General: no rashes or lesions noted Neuro General: patient alert, patient awake and patient oriented x3 Cranial Nerves: CN's II-XI intact bilaterally Cognition: normal cognition Speech: speech normal Gait: normal gait Motor: muscle tone normal throughout Extrem General: no edema Psych Appearance: grossly normal Mental Status: mental status grossly normal Mood: congruent mood Affect: normal affect Speech and Movement: speech and movement normal Attitude: cooperative Thought Process: normal Thought Content: normal Judgment: ju (more content not included)... Normal [facility] CBC-Complete Blood Cnt No Di ffon 08-13-2024 Erythrocyte distribution width (RBC) [Ratio] 12.9 % Normal 11.6-14.6 [facility] Comment on above: Order Comment: IVELISSE Fowler FIND LAV FROM 08/12 AND ADD CBC Performed By: #### L 506.0400, L500.4050, L100.0500, L500.4100, L506.1001, L501.9520 #### [facility] [address] [place], [address] Hematocrit (Bld) [Volume fraction] 46.1 % Normal 37-47 [facility] Comment on above: Order Comment: IVELISSE Fowler FIND LAV FROM 08/12 AND ADD CBC Performed By: #### L 506.0400, L500.4050, L100.0500, L500.4100, L506.1001, L501.9520 #### [facility] [address] [place], [address] Hemoglobin (Bld) [Mass/Vol] 14.9 g/dL Normal 12.0-15.0 [facility] Comment on above: Order Comment: IVELISSE Fowler FIND LAV FROM 08/12 AND ADD CBC Performed By: #### L 506.0400, L500.4050, L100.0500, L500.4100, L506.1001, L501.9520 #### [facility] [address] [place], [address] MCH (RBC) [Entitic mass] 31.3 pg Normal 27.0-32.0 [facility] Comment on above: Order Comment: PLEAS E FIND LAV FROM 08/12 AND ADD CBC Performed By: #### L 506.0400, L500.4050, L100.0500, L500.4100, L506.1001, L501.9520 #### [facility] [address] [place], [address] MCHC (RBC) [Mass/Vol] 32.3 g/dL Normal 32-36 [facility] Comment on above: Order Comment: PLEAS E FIND LAV FROM 08/12 AND ADD CBC Performed By: #### L 506.0400, L500.4050, L100.0500, L500.4100, L506.1001, L501.9520 #### [facility] [address] [place], [address] MCV (RBC) [Entitic vol] 96.8 fL Normal 81-99 [facility] Comment on above: Order Comment: PLEAS E FIND LAV FROM 08/12 AND ADD CBC Performed By: #### L 506.0400, L500.4050, L100.0500, L500.4100, L506.1001, L501.9520 #### [facility] [address] [place], [address] Platelet mean volume (Bld) [Entitic vol] 10.4 fL Normal 6.2-12.0 [facility] Comment on above: Order Comment: PLEAS E FIND LAV FROM 08/12 AND ADD CBC Performed By: #### L 506.0400, L500.4050, L100.0500, L500.4100, L506.1001, L501.9520 #### [facility] [address] [place], [address] Platelets (Bld) [#/Vol] 286 10*3/uL Normal 150-450 [facility] Comment on above: Order Comment: PLEAS E FIND LAV FROM 08/12 AND ADD CBC Performed By: #### L 506.0400, L500.4050, L100.0500, L500.4100, L506.1001, L501.9520 #### [facility] [address] [place], [address] RBC (Bld) [#/Vol] 4.76 10*6/uL Normal 4.2-5.4 [facility] Comment on above: Order Comment: PLEAS E FIND LAV FROM 08/12 AND ADD CBC Performed By: #### L 506.0400, L500.4050, L100.0500, L500.4100, L506.1001, L501.9520 #### [facility] [address] [place], [address] RDW SD 46.1 fl High 35.1-43.9 [facility] Comment on above: Order Comment: PLEAS E FIND LAV FROM 08/12 AND ADD CBC Performed By: #### L 506.0400, L500.4050, L100.0500, L500.4100, L506.1001, L501.9520 #### [facility] [address] [place], [address] WBC (Bld) [#/Vol] 5.0 10*3/uL Normal 4.4-11.0 [facility] Comment on above: Order Comment: PLEAS E FIND LAV FROM 08/12 AND ADD CBC Performed By: #### L 506.0400, L500.4050, L100.0500, L500.4100, L506.1001, L501.9520 #### [facility] [address] [place], [address] Erythrocyte distribution wid th (RBC) [Ratio]Ordered By: Refugio Houston on 08-13-2024 Erythrocyte distribution width (RBC) [Entitic vol] 46.1 fL High 35.1-43.9 [facility] Erythrocyte distribution wid th ratioOrdered By: Refugio Houston on 08-13-2024 Erythrocyte distribution width (RBC) [Ratio] 12.9 % 11.6-14.6 [facility] Erythrocyte distribution wid th standard deviationOrdered By: Refugio Houston on 08-13-2024 Erythrocyte distribution width (RBC) [Ratio] 46.1 fl High 35.1-43.9 [facility] Hematocrit Auto (Bld) [Volum e fraction]Ordered By: Refugio Houston on 08-13-2024 Hematocrit (Bld) [Volume fraction] 46.1 % 37-47 [facility] Hemoglobin measurementOrdere d By: Refugio Houston on 08-13-2024 Hemoglobin (Bld) [Mass/Vol] 14.9 g/dL 12.0-15.0 [facility] MCV (mean corpuscular volume ) determinationOrdered By: Refugio Houston on 08-13-2024 MCV (RBC) [Entitic vol] 96.8 fL 81-99 [facility] Mean corpuscular hemoglobin (MCH) determinationOrdered By: Refugio Houston 08-13-2024 MCH (RBC) [Entitic mass] 31.3 pg 27.0-32.0 [facility] Mean corpuscular hemoglobin concentration (MCHC) determinationOrdered By: Refugio Houston 08-13-2024 MCHC (RBC) [Mass/Vol] 32.3 g/dL 32-36 [facility] Mean platelet volume determi nationOrdered By: Refugio Houston on 08-13-2024 Platelet mean volume (Bld) [Entitic vol] 10.4 fL 6.2-12.0 [facility] Platelet countOrdered By: Cas Houston on 08-13-2024 Platelets (Bld) [#/Vol] 286 10*3/uL 150-450 [facility] RBC Auto (Bld) [#/Vol]Ordere d By: Refugio Houston on 08-13-2024 RBC (Bld) [#/Vol] 4.76 10*6/uL 4.2-5.4 [facility] White blood cell (WBC) count Ordered By: Refugio Houston on 08-13-2024 WBC (Bld) [#/Vol] 5.0 10*3/uL 4.4-11.0 [facility] Anion gap in Serum or Plasma Ordered By: Refugio Houston on 08-12-2024 Anion gap [Moles/Vol] 10 mmol/L 5-15 [facility] BUN/creatinine ratioOrdered By: Refugio Houston on 08-12-2024 Urea nitrogen/Creatinine [Mass ratio] 21.9 mg/mg High 10-20 [facility] Bilirubin, totalOrdered By: Refugio Houston on 08-12-2024 Bilirubin [Mass/Vol] 0.74 mg/dL 0.00-1.30 [facility] Calculated very low density lipoprotein (VLDL) cholesterol measurementOrdered By: Refugio Houston on 08-12-2024 Calculated very low density lipoprotein (VLDL) cholesterol measurement 14 mg/dL - [facility] VLDL Cholesterol 14 mg/dL [facility] Carbon dioxide, total [Moles /volume] in Central venous bloodOrdered By: Refugio Houston on 08-12-2024 CO2 [Moles/Vol] 26.8 mmol/L 21.0-32.0 [facility] Chloride assayOrdered By: Cas Houston on 08-12-2024 Chloride [Moles/Vol] 103 mmol/L 98-108 [facility] Comprehensive Metabolic Prof ilon 08-12-2024 Albumin/Globulin [Mass ratio] 1.6 {ratio} Normal 0.9-2.4 [facility] Comment on above: Performed By: #### L 506.0400, L500.4050, L100.0500, L500.4100, L506.1001, L501.9520 #### [facility] [address] [place], [address] ALK PHOS 92 U/L Normal 35-104 [facility] Comment on above: Performed By: #### L 506.0400, L500.4050, L100.0500, L500.4100, L506.1001, L501.9520 #### [facility] [address] [place], [address] ALT [Catalytic activity/Vol] 20 U/L Normal <=34 [facility] Comment on above: Performed By: #### L 506.0400, L500.4050, L100.0500, L500.4100, L506.1001, L501.9520 #### [facility] [address] [place], [address] AST [Catalytic activity/Vol] 26 U/L Normal <=31 [facility] Comment on above: Performed By: #### L 506.0400, L500.4050, L100.0500, L500.4100, L506.1001, L501.9520 #### [facility] [address] [place], [address] Bilirubin [Mass/Vol] 0.74 mg/dL Normal 0.00-1.30 [facility] Comment on above: Performed By: #### L 506.0400, L500.4050, L100.0500, L500.4100, L506.1001, L501.9520 #### [facility] [address] [place], [address] Calcium [Mass/Vol] 9.8 mg/dL Normal 7.6-11.0 [facility] Comment on above: Performed By: #### L 506.0400, L500.4050, L100.0500, L500.4100, L506.1001, L501.9520 #### [facility] [address] [place], [address] Chloride [Moles/Vol] 103 mmol/L Normal 98-108 [facility] Comment on above: Performed By: #### L 506.0400, L500.4050, L100.0500, L500.4100, L506.1001, L501.9520 #### [facility] [address] [place], [address] CO2 [Moles/Vol] 26.8 mmol/L Normal 21.0-32.0 [facility] Comment on above: Performed By: #### L 506.0400, L500.4050, L100.0500, L500.4100, L506.1001, L501.9520 #### [facility] [address] [place], [address] GAP 10 Normal 5-15 [facility] Comment on above: Performed By: #### L 506.0400, L500.4050, L100.0500, L500.4100, L506.1001, L501.9520 #### [facility] [address] [place], [address] Potassium [Moles/Vol] 4.1 mmol/L Normal 3.3-5.1 [facility] Comment on above: Performed By: #### L 506.0400, L500.4050, L100.0500, L500.4100, L506.1001, L501.9520 #### [facility] [address] [place], [address] Sodium [Moles/Vol] 139 mmol/L Normal 133-145 [facility] Comment on above: Performed By: #### L 506.0400, L500.4050, L100.0500, L500.4100, L506.1001, L501.9520 #### [facility] [address] [place], [address] BUN/CRE 21.9 RATIO High 10-20 [facility] Comment on above: Performed By: #### L 506.0400, L500.4050, L100.0500, L500.4100, L506.1001, L501.9520 #### [facility] [address] [place], [address] T PROT 7.4 g/dL Normal 5.9-8.4 [facility] Comment on above: Performed By: #### L 506.0400, L500.4050, L100.0500, L500.4100, L506.1001, L501.9520 #### [facility] [address] [place], [address] GFR/1.73 sq M.predicted zahira g non-blacks MDRD (S/P/Bld) [Vol rate/Area]Ordered By: Refugio Houston on 08-12-2024 Estimated GFR (MDRD) Non-Af Amer 83 >60 [facility] Comment on above: mL/min/1.73m2 CKD-EP I Creatinine Equation (2020) Glomerular filtration rate ( GFR) estimation/1.73 sq m using serum, plasma, or whole bOrdered By: Refugio Houston on 08-12-2024 GFR/1.73 sq M.predicted among non-blacks MDRD (S/P/Bld) [Vol rate/Area] 83 mL/min/{1.73_m2} Normal >60 [facility] Comment on above: mL/min/1.73m2 CKD-EP I Creatinine Equation (2020) Result Comment: mL/m in/1.73m2 CKD-EPI Creatinine Equation (2020) Performed By: #### L 506.0400, L500.4050, L100.0500, L500.4100, L506.1001, L501.9520 #### [facility] [address] [place], [place], [address] LDL calc ser/plasOrdered By: Refugio Houston on 08-12-2024 Cholesterol in LDL [Mass/Vol] 68 mg/dL [facility] Comment on above: Dopkapsbuo=355-965 m g/dL & Higher Egju=697 mg/dL or greater LDL Cholesterol, Calculated 68 mg/dL [facility] Comment on above: Ytifhfrvfy=207-789 m g/dL & Higher Kezs=779 mg/dL or greater Laboratory - Chemistry and C hemistry - challengeOrdered By: Refugio Houston on 08-12-2024 AST [Catalytic activity/Vol] 26 U/L <32 [facility] Lipid Profileon 08-12-2024 CHOL:HDL 1.99 Normal [facility] Comment on above: Performed By: #### L 506.0400, L500.4050, L100.0500, L500.4100, L506.1001, L501.9520 #### [facility] [address] [place], [address] Cholesterol [Mass/Vol] 165 mg/dL Normal <=200 [facility] Comment on above: Result Comment: Chol esterol level, Desirable <200 mg/dL Borderline high cholesterol 200-239 mg/dL High cholesterol >=240 mg/dL Recommendations of the NCEP Adult Treatment Panel for the following risk-cutoff thresholds for the [place] Citizen population. Performed By: #### L 506.0400, L500.4050, L100.0500, L500.4100, L506.1001, L501.9520 #### [facility] [address] [place], [address] Cholesterol in HDL [Mass/Vol] 83 mg/dL Normal [facility] Comment on above: Result Comment: Catherine onal Cholesterol Education Program (NCEP) guidelines: <40 mg/dL: Low HDL-cholesterol (major risk factor for CHD) >= 60 mg/dL: High HDL-cholesterol (negative risk factor for CHD) HDL-cholesterol is affected by a number of factors, e.g. smoking, exercise, hormones, sex and age. Performed By: #### L 506.0400, L500.4050, L100.0500, L500.4100, L506.1001, L501.9520 #### [facility] [address] [place], [address] Cholesterol in LDL [Mass/Vol] 68 mg/dL Normal [facility] Comment on above: Result Comment: Bord uzxorr=801-959 mg/dL Higher Rtks=456 mg/dL or greater Performed By: #### L 506.0400, L500.4050, L100.0500, L500.4100, L506.1001, L501.9520 #### [facility] [address] [place], [address] Cholesterol in VLDL [Mass/Vol] 14 mg/dL Normal 5-40 [facility] Comment on above: Performed By: #### L 506.0400, L500.4050, L100.0500, L500.4100, L506.1001, L501.9520 #### [facility] [address] [place], [address] Triglyceride [Mass/Vol] 69 mg/dL Normal [facility] Comment on above: Result Comment: The drugs N-Acetylcysteine and Metamizole may falsely depress this assay. Normal range: <150 mg/dL Borderline High: 150-199 mg/dL High: 200-499 mg/dL Very High: >500 mg/dL Performed By: #### L 506.0400, L500.4050, L100.0500, L500.4100, L506.1001, L501.9520 #### [facility] [address] [place], [address] Potassium (Unsp spec) [Mass/ Vol]Ordered By: Refugio Houston on 08-12-2024 Potassium [Moles/Vol] 4.1 mmol/L 3.3-5.1 [facility] Potassium measurement (mass/ volume)Ordered By: Refugio Houston on 08-12-2024 Potassium (Unsp spec) [Mass/Vol] 4.1 mmol/L 3.3-5.1 [facility] Screening total cholesterol/ high density lipoprotein (HDL) cholesterol ratioOrdered By: Refugio Houston on 08-12-2024 Cholesterol.total/Chol esterol in HDL [Mass ratio] 1.99 {ratio} [facility] Serum creatinine measurement (mass/volume)Ordered By: Refugio Houston on 08-12-2024 Creatinine [Mass/Vol] 0.78 mg/dL Normal 0.70-1.20 [facility] Comment on above: Performed By: #### L 506.0400, L500.4050, L100.0500, L500.4100, L506.1001, L501.9520 #### [facility] [address] [place], [address] Serum globulin measurementOr dered By: Refugio Houston on 08-12-2024 Globulin (S) [Mass/Vol] 2.8 g/dL Normal 2.2-4.2 [facility] Comment on above: Performed By: #### L 506.0400, L500.4050, L100.0500, L500.4100, L506.1001, L501.9520 #### [facility] [address] [place], [address] Serum glucose measurement (m ass/volume)Ordered By: Refugio Houston on 08-12-2024 Glucose [Mass/Vol] 112 mg/dL High 70-99 [facility] Comment on above: Performed By: #### L 506.0400, L500.4050, L100.0500, L500.4100, L506.1001, L501.9520 #### [facility] [address] [facility] [place], [address] Serum or plasma alanine mccord otransferase (ALT) measurementOrdered By: Refugio Houston on 08-12-2024 ALT [Catalytic activity/Vol] 20 U/L <35 [facility] Serum or plasma albumin gracy urement (mass/volume)Ordered By: Refugio Houston on 08-12-2024 Albumin [Mass/Vol] 4.5 g/dL Normal 3.4-4.8 [facility] Comment on above: Performed By: #### L 506.0400, L500.4050, L100.0500, L500.4100, L506.1001, L501.9520 #### [facility] [address] [place], [address] Serum or plasma albumin/glob ulin mass ratioOrdered By: Refugio Houston on 08-12-2024 Albumin/Globulin [Mass ratio] 1.6 {ratio} 0.9-2.4 [facility] Serum or plasma alkaline lisseth sphatase measurementOrdered By: Refugio Houston on 08-12-2024 ALP [Catalytic activity/Vol] 92 U/L 35-104 [facility] Serum or plasma calcium gracy urement (mass/volume)Ordered By: Refugio Houston on 08-12-2024 Calcium [Mass/Vol] 9.8 mg/dL 7.6-11.0 [facility] Serum or plasma cholesterol in HDL measurement (mass/volume)Ordered By: Refugio Houston on 08-12-2024 Cholesterol in HDL [Mass/Vol] 83 mg/dL >40 [facility] Comment on above: National Cholesterol Education Program (NCEP) guidelines:<40 mg/dL: Low HDL-cholesterol (major risk factor for CHD)>= 60 mg/dL: High HDL-cholesterol (negative risk factor for CHD)HDL-cholesterol is affected by a number of factors, e.g. smoking, exercise, hormones, sex and age. Serum or plasma cholesterol measurement (mass/volume)Ordered By: Refugio Houston on 08-12-2024 Cholesterol [Mass/Vol] 165 mg/dL <201 [facility] Comment on above: Cholesterol level, D esirable <200 mg/dLBorderline high cholesterol 200-239 mg/dLHigh cholesterol >=240 mg/dLRecommendations of the NCEP Adult Treatment Panel for the following risk-cutoff thresholds for the [place] Citizen population. Serum or plasma urea nitroge n measurement (mass/volume)Ordered By: Refugio Houston on 08-12-2024 Urea nitrogen [Mass/Vol] 17 mg/dL Normal 4-19 [facility] Comment on above: Performed By: #### L 506.0400, L500.4050, L100.0500, L500.4100, L506.1001, L501.9520 #### [facility] [address] [place], [place], [id number] Sodium levelOrdered By: Refugio Houston on 08-12-2024 Sodium [Moles/Vol] 139 mmol/L 133-145 [facility] T4 Free Directon 08-12-2024 T4 FREE DIRECT 1.10 ng/dL Normal 0.76-1.46 [facility] Comment on above: Performed By: #### L 506.0400, L500.4050, L100.0500, L500.4100, L506.1001, L501.9520 #### [facility] [address] [place], [place], [id number] T4 freeOrdered By: Refugio Houston on 08-12-2024 Free T4 [Mass/Vol] 1.10 ng/dL 0.76-1.46 [facility] TSH DL <= 0.005 mIU/L QnOrde red By: Refugio Houston on 08-12-2024 Thyroid Stimulating Hormone (TSH) 2.680 uIU/mL 0.300-4.200 [facility] TSH Qn 2.680 uIU/mL 0.300-4.200 [facility] Thyroid Stim Hormone (TSH)on 08-12-2024 TSH 2.680 uIU/mL Normal 0.300-4.200 [facility] Comment on above: Performed By: #### L 506.0400, L500.4050, L100.0500, L500.4100, L506.1001, L501.9520 #### [facility] [address] [place], [place], [id number] Total proteinOrdered By: Trenton Houston on 08-12-2024 Protein [Mass/Vol] 7.4 g/dL 5.9-8.4 [facility] Triglycerides measurementOrd ered By: Refugio Houston on 08-12-2024 Triglyceride [Mass/Vol] 69 mg/dL <199 [facility] Comment on above: The drugs N-Acetylcy steine and Metamizole may falsely depress this assay. Normal range: <150 mg/dLBorderline High: 150-199 mg/dLHigh: 200-499 mg/dLVery High: >500 mg/dL Vitamin D, 25-hydroxyOrdered By: Refugio Houston on 08-12-2024 Vitamin D 25-Hydroxy 59.8 ng/mL 30-100 [facility] Comment on above: Vitamin D StatusDefi ciency: <20 ng/mL (50nmol/L)Insufficiency: 20-30 ng/mL (50-75 nmol/L)Sufficiency: 30-100 ng/mL (75-250 nmol/L)Toxicity: >100 ng/mL (>250 nmol/L) Vitamin D,25 Hydroxyon 08-12 Vitamin D 25-OH 59.8 ng/mL Normal 30-100 [facility] Comment on above: Result Comment: Ashlyn min D Status Deficiency: <20 ng/mL (50nmol/L) Insufficiency: 20-30 ng/mL (50-75 nmol/L) Sufficiency: 30-100 ng/mL (75-250 nmol/L) Toxicity: >100 ng/mL (>250 nmol/L) Performed By: #### L 506.0400, L500.4050, L100.0500, L500.4100, L506.1001, L501.9520 #### [facility] [address] [place], [address] SCRN MAMM (CAD)W/JOESPH BILATo n 03-16-2024 SCRN MAMM (CAD)W/JOESPH BILAT [facility] Imaging Services [address] [place], [place] [address] SCRN MAMM (CAD)W/JOESPH BILAT MR#: [id number] Acct: [id number] Name: URBANO MUSA Rep #: [id number] : 1955 F 68 From: Zhen Mercer MD PCP: Dr. Tamara Ha MD Status: [facility] Study: SCRN MAMM (CAD)W/JOESPH BILAT Date of Exam: 02/21 09/12 Exam# [id number] Ordering Dr: Tamara Ha MD [id number] MAMMOGRAPHY - BILATERAL SCREENING 3-D TOMOSYNTHESIS REASON FOR EXAM: Female, 68 years old. SCREENING PERTINENT HISTORY: No significant family history. TECHNIQUE: 2-D mammograms and 3-D Tomosynthesis of the breast (s) were performed. CAD was performed. COMPARISON: 01/04/2023 FINDINGS: The breast composition is composed of scattered fibroglandular density. Scattered benign calcifications are seen. No dense spiculated masses or suspicious microcalcifications are identified. No architectural distortion is identified. There is no skin thickening or retraction. There has been no significant change since the prior study. BI/SCRN MAMM (CAD)W/JOESPH BILAT IMPRESSION: No mammographic signs of malignancy. Routine yearly mammograms recommended. ASSESSMENT CATEGORY: BIRADS Category 1: Negative. A letter regarding these results will be sent to the patient by the facility within 30 days. FOLLOW UP RECOMMENDATION: Yearly follow up mammogram recommended. (A) Approximately 10% of breast cancers are not detected by mammography. A normal mammogram should not delay biopsy of a clinically suspicious abnormality. Electronically Signed: Zhen Mercer MD at 16:28 EST , CC: Dr. Tamara Ha MD Manager Of Investigations: Signed Normal [facility] No Panel Informationon 12-05 [facility] Work Phone: Skin excisionon 12-06-2023 Lesion length (cm): 0.5 Lesion width (cm): 0.5 Margin per side (cm): 1 Total excision diameter (cm): 2.5 Breslow depth (mm): melanoma in situ. Informed consent: discussed and consent obtained Timeout: patient name, date of , surgical site, and procedure verified Procedure prep: Patient was prepped and draped Anesthesia: the lesion was anesthetized in a standard fashion Anesthetic: 1% lidocaine w/ epinephrine 1-100,000 local infiltration Instrument used: #15 blade Hemostasis achieved with: electrodesiccation Outcome: patient tolerated procedure well with no complications Post-procedure details: sterile dressing applied and wound care instructions given Dressing type: pressure dressing, Hypafix and Prashant wrap Additional details: Melanoma Barney: Curative Intent: Yes Original Breslow Thickness: melanoma in situ Clinical margin width: 1 cm Depth of excision: Full thickness [facility] Work Phone: Skin repairon 12-06-2023 Complexity: Intermed iate Final length (cm): 6.4 Informed consent: discussed and consent obtained Timeout: patient name, date of , surgical site, and procedure verified Procedure prep: Patient prepped in sterile fashion Anesthesia: the lesion was anesthetized in a standard fashion Anesthetic: 1% lidocaine w/ epinephrine 1-100,000 local infiltration Reason for type of repair: reduce tension to allow closure Undermining: edges undermined Subcutaneous layers (deep stitches): Suture size: 4-0 Suture type: Vicryl (polyglactin 910) Stitches: Buried vertical mattress Fine/surface layer approximation (top stitches): Suture size: 4-0 Suture type: Prolene (polypropylene) Stitches: simple running Suture removal (days): 7 Hemostasis achieved with: electrodesiccation Outcome: patient tolerated procedure well with no complications Post-procedure details: sterile dressing applied and wound care instructions given Dressing type: pressure dressing [facility] Work Phone: Comprehensive metabolic 2000 panelon 08-14-2023 Albumin BCP dye [Mass/Vol] 4.3 g/dL 3.4 - 5.0 g/dL [facility] ALP [Catalytic activity/Vol] 81 U/L 33 - 136 U/L [facility] ALT With P-5'-P [Catalytic activity/Vol] 20 U/L 7 - 45 U/L [facility] Comment on above: Patients treated wit h Sulfasalazine may generate falsely decreased results for ALT. Anion gap [Moles/Vol] 12 mmol/L 10 - 2 0 mmol/L [facility] AST With P-5'-P [Catalytic activity/Vol] 16 U/L 9 - 39 U/L [facility] Bilirubin [Mass/Vol] 0.5 mg/dL 0.0 - 1 .2 mg/dL [facility] Calcium [Mass/Vol] 9.6 mg/dL 8.6 - 10. 6 mg/dL [facility] Chloride [Moles/Vol] 101 mmol/L 98 - 10 7 mmol/L [facility] CO2 [Moles/Vol] 31 mmol/L 21 - 32 mmol/L [facility] Creatinine [Mass/Vol] 0.78 mg/dL 0.50 - 1.05 mg/dL [facility] GFR/1.73 sq M.predicted among non-blacks MDRD (S/P/Bld) [Vol rate/Area] 83 mL/min/{1.73_m2} - PINF [facility] Comment on above: Calculations of anjali mated GFR are performed using the 2020 CKD-EPI Study Refit equation without the race variable for the IDMS-Traceable creatinine methods. https://jasn.asnjournals.org/content//ASN.86158 00496 Glucose [Mass/Vol] 88 mg/dL 74 - 99 mg/dL [facility] Interpretation and review of laboratory results Normal [facility] Potassium [Moles/Vol] 4.3 mmol/L 3.5 - 5.3 mmol/L [facility] Protein [Mass/Vol] 6.7 g/dL 6.4 - 8.2 g/dL [facility] Sodium [Moles/Vol] 140 mmol/L 136 - 145 mmol/L [facility] Urea nitrogen [Mass/Vol] 18 mg/dL 6 - 23 mg/dL [facility] Lipid 1996 panelon 4 Cholesterol [Mass/Vol] 162 mg/dL 0 - 1 99 mg/dL [facility] Comment on above: Age Desirable Borderline High High 0-19 Y 0 - 169 170 - 199 >/= 200 20-24 Y 0 - 189 190 - 224 >/= 225 >24 Y 0 - 199 200 - 239 >/= 240 All ranges are based on fasting samples. Specific therapeutic targets will vary based on patient-specific cardiac risk. Pediatric guidelines reference:Pediatrics 2011, 128(S5).Adult guidelines reference: NCEP ATPIII Guidelines,NEGAR 2001, 258:2486-97 Venipuncture immediately after or during the administration of Metamizole may lead to falsely low results. Testing should be performed immediately prior to Metamizole dosing. Cholesterol in HDL [Mass/Vol] 74.4 mg/dL [facility] Comment on above: Age Very Low Low Normal High 0-19 Y < 35 < 40 40-45 ---- 20-24 Y ---- < 40 >45 ---- >24 Y ---- < 40 40-60 >60 Cholesterol in LDL [Mass/Vol] 66 mg/dL NINF - 99 mg/dL [facility] Comment on above: Near Borderline AGE Desirable Optimal High High Very High 0-19 Y 0 - 109 --- 110-129 >/= 130 ---- 20-24 Y 0 - 119 --- 120-159 >/= 160 ---- >24 Y 0 - 99 100-129 130-159 160-189 >/=190 Cholesterol in VLDL [Mass/Vol] 22 mg/dL 0 - 40 mg/dL [facility] Cholesterol.total/Chol esterol in HDL [Mass ratio] 2.2 {ratio} [facility] Comment on above: Ref Values Desirable < 3.4 High Risk > 5.0 Non HDL Cholesterol 88 mg/dL 0 - 149 mg/dL [facility] Comment on above: Age Desirable Borderline High High Very High 0-19 Y 0 - 119 120 - 144 >/= 145 >/= 160 20-24 Y 0 - 149 150 - 189 >/= 190 ---- >24 Y 30 mg/dL above LDL Cholesterol goal Triglyceride [Mass/Vol] 108 mg/dL 0 - 149 mg/dL [facility] Comment on above: Age Desirable Borderline High High Very High 0 D-90 D 19 - 174 ---- ---- ---- 91 D- 9 Y 0 - 74 75 - 99 >/= 100 ---- 10-19 Y 0 - 89 90 - 129 >/= 130 ---- 20-24 Y 0 - 114 115 - 149 >/= 150 ---- >24 Y 0 - 149 150 - 199 200- 499 >/= 500 Venipuncture immediately after or during the administration of Metamizole may lead to falsely low results. Testing should be performed immediately prior to Metamizole dosing. No Panel Informationon 08-13 [facility] CBC panel Auto (Bld)on 08-12 Erythrocyte distribution width (RBC) [Ratio] 13.1 % 11.5 - 14.5 % [facility] Hematocrit (Bld) [Volume fraction] 46.5 % High 36.0 - 46.0 % [facility] Hemoglobin (Bld) [Mass/Vol] 15.0 g/dL 12.0 - 16.0 g/dL [facility] Interpretation and review of laboratory results Abnormal [facility] MCH (RBC) [Entitic mass] 31.3 pg 26.0 - 34.0 pg [facility] MCHC (RBC) [Mass/Vol] 32.3 g/dL 32.0 - 36.0 g/dL [facility] MCV (RBC) [Entitic vol] 97 fL 80 - 100 fL [facility] Nucleated RBC/100 WBC (Bld) [Ratio] [facility] Comment on above: Not Measured Platelets (Bld) [#/Vol] 261 10*3/uL [facility] RBC (Bld) [#/Vol] 4.79 10*6/uL [facility] WBC (Bld) [#/Vol] 4.7 10*3/uL [facility] CNOVon 02-20-2023 CNOV Office Visit ([facility] ) ----- URBANO MUSA ([id number]) 1955 F Date Time Provider Department 02/20/23 8:30 AM MART RAINES [facility] During your visit today, we recorded the following information about you: Temperature Pulse Respiration Blood pressure 97 degrees 76/minute 21/minute 142/94 Weight 65.1 kg Mart Raines MD 02/20/2023 9:01 AM Signed Patient presents with: Ear Problem: Bilateral ears clogged x 2 weeks HPI: Feeling ears are clogged for 2 weeks. Positive symptoms: decreased hearing, Negative symptoms: Cough, Earache, Sinus pressure, Nasal Congestion, Fever, OTC: ear drops, OTC irrigation, uses qtips MEDICATIONS: Current Outpatient Medications Medication Sig pantoprazole DR (PROTONIX) 20 mg tablet Take by mouth. atorvastatin (LIPITOR) 40 mg tablet EPINEPHrine (EPIPEN) 0.3 mg/0.3 mL auto-injector ergocalciferol, vitamin D2, 50,000 unit capsule Take 1 capsule by mouth once each week. calcium carbonate ([id number])(TUMS 500 MG CHEWABLE TAB) one twice a day ACIPHEX 20 MG TAB as needed No current facility-administered medications for this visit. ALLERGIES: ALLERGIES Allergen Reactions Penicillins Itching swelling Sulfa (Sulfonamide * Itching swelling VITALS: BP 142/94 Pulse 76 Temp 36.1 ?C (97 ?F) Resp 21 Wt 65.1 kg (143 lb 9.6 oz) SpO2 98% PHYSICAL EXAM: GEN: Pleasant, in no acute distress. HEENT: PERRL, EOMI, conjunctiva clear Ears: proximal impaction with yellow-white debris right canal, partial impaction left canal. TMs without erythema, bulge, or effusion after removal Sinuses: non-tender frontal sinus, non-tender maxillary sinuses Throat: moist mucous membranes, no erythema, no exudate Neck: supple, no thyromegaly, no lymphadenopathy HEART: regular rate and rhythm, no murmurs LUNGS: clear to auscultation, no wheezes or crackles, no increased WOB ASSESSMENT/PLAN: 1. Bilateral impacted cerumen - ICD9: 380.4, ICD10: H61.23 Successful removal of impaction by staff lavage. Few small thin translucent adherent sheets in both canals. TMs clear after procedure. Right ear muffled hearing improved. - AMBULATORY EAR LAVAGE/IRRIGATION MD Everton Fuentes Sabrina, MA 02/20/2023 8:58 AM Signed Ambulatory Ear Lavage Pre-treatment: Warm water Treatment: Both ears Equipment and Irrigation solution and Volume used: Single use syringe with single use irrigation tip Water Return flow appearance: Yellow Patient tolerated procedure: yes Tympanic membrane assessment: Tympanic membrane assessed by LIP pre and post procedure Mart Raines MD Allergies As of Date: 02/20/2023 Noted Allergy Reaction PENICILLINS 02/21/2005 9 - Itching Comments: swelling SULFA (SULFONAMIDE ANTIBIOTICS) 02/21/2005 9 - Itching Comments: swelling Date Reviewed: 02/20/2023 Reviewed by: Mignon Toscano MA - Fully Assessed Reason for Visit: Ear Problem [38] Cmt: Bilateral ears clogged x 2 weeks Primary Visit Diagnosis:Bilateral impacted cerumen [H61.23] Order(s):AMBULATORY EAR LAVAGE/IRRIGATION [[id number]] Order #: [id number] Prescriptions as of 02/20/2023 - pantoprazole DR (PROTONIX) 20 mg tablet Take by mouth. - atorvastatin (LIPITOR) 40 mg tablet - EPINEPHrine (EPIPEN) 0.3 mg/0.3 mL auto-injector - ergocalciferol, vitamin D2, 50,000 unit capsule Take 1 capsule by mouth once each week. Problem List As Of Date 02/20/2023 Noted Resolved SIMPLE GOITER [E04.0] TOX DIF GOITER NO CRISIS [E05.00] 06/27/2006 Osteopenia [M89.9, M94.9] 07/04/2006 Visit Notes: >> Mignon Toscano MA Wed Feb 20, 2023 8:56 AM Status: Signed Ambulatory Ear Lavage Pre-treatment: Warm water Treatment: Both ears Equipment and Irrigation solution and Volume used: Single use syringe with single use irrigation tip Water Return flow appearance: Yellow Patient tolerated procedure: yes Tympanic membrane assessment: Tympanic membrane assessed by LIP pre and post procedure Mart Raines MD Medications Discontinued During This Encounter Prescriptions - ACIPHEX 20 MG TAB (Discontinued) as needed - calcium carbonate ([id number])(TUMS 500 MG CHEWABLE TAB) (Discontinued) one twice a day Encounter Status:Closed by MART RAINES on 02/20/23 [facility] Basophil percentageOrdered B y: Refugio Houston on 12-26-2022 Bilirubin [Mass/Vol] 0.50 mg/dL 0.20-1.00 [facility] Comment on above: For patients on eltr ombopag therapy, use of Dimension [place]cam[place] TBIL is not recommended. Chloride [Moles/Vol] 106 mmol/L 98-107 [facility] Cholesterol [Mass/Vol] 143 mg/dL <200 [facility] Comment on above: <200 mg/dL Desirable 200-240 mg/dL Borderline >240 mg/dL High Risk Glucose [Mass/Vol] 104 mg/dL 74-106 [facility] Comment on above: Fasting Glucose resu lt from 100 to 125 mg/dL suggests IMPAIRED HOMEOSTASIS per A.D.A. criteria. Potassium [Moles/Vol] 4.0 mmol/L 3.5-5.1 [facility] Protein [Mass/Vol] 7.3 g/dL 6.4-8.2 [facility] Sodium [Moles/Vol] 138 mmol/L 136-145 [facility] Triglyceride [Mass/Vol] 75 mg/dL <199 [facility] Comment on above: The drugs N-Acetylcy steine and Metamizole may falsely depress this assay.Serum Triglycerides Reference Interval Normal <150 mg/dL Borderline high 150 - 199 mg/dL High 200 - 499 mg/dL Very High > or = 500 mg/dL Laboratory - Chemistry and C hemistry - challengeOrdered By: Refugio Houston on 12-26-2022 ALP [Catalytic activity/Vol] 100 U/L 45-117 [facility] ALT [Catalytic activity/Vol] 26 U/L 13-56 [facility] CO2 [Moles/Vol] 28.0 mmol/L 21.0-32.0 [facility] Free T4 [Mass/Vol] 0.95 ng/dL 0.76-1.46 [facility] Globulin (S) [Mass/Vol] 3.5 g/dL 2.2-4.2 [facility] Urea nitrogen/Creatinine [Mass ratio] 21.3 mg/mg 10-20 [facility] No Panel InformationOrdered By: Refugio Houston on 12-26-2022 Estimated GFR (MDRD) Amer 86 mL/min >60 [facility] Comment on above: GFR Calc Estimated GFR (MDRD) Non-Af Amer 71 mL/min >60 [facility] Comment on above: Non- GFR Calc Thyroid Stimulating Hormone (TSH) 2.40 uIU/mL 0.358-3.74 [facility] Vitamin D 25-Hydroxy 92.2 ng/mL [facility] Comment on above: Vitamin D 25(OH) Sta tus Range Deficiency <20 ng/mL (50nmol/L) Insufficiency 20 - 30 ng/mL (50 - 75 nmol/L) Sufficiency 30 - 100 ng/mL (75 - 250 nmol/L) Toxicity >100 ng/mL (>250 nmol/L) Serum or plasma albumin gracy urement (mass/volume)Ordered By: Refugio Houston on 12-26-2022 Albumin [Mass/Vol] 3.8 g/dL 3.2-5.0 [facility] Serum or plasma albumin/glob ulin mass ratioOrdered By: Refugio Houston on 12-26-2022 Albumin/Globulin [Mass ratio] 1.1 {ratio} 0.9-2.4 [facility] Serum or plasma calcium gracy urement (mass/volume)Ordered By: Refugio Houston on 12-26-2022 Calcium [Mass/Vol] 9.1 mg/dL 8.5-10.1 [facility] Serum or plasma cholesterol in HDL measurement (mass/volume)Ordered By: Refugio Houston on 12-26-2022 Cholesterol in HDL [Mass/Vol] 78 mg/dL >40 [facility] Comment on above: The drugs N-Acetylcy steine and Metamizole may falsely depress this assay. Reference Range HDL <40 mg/dL Low HDL Cholesterol HDL >or= 60 mg/dL High HDL Cholesterol Serum or plasma cholesterol in VLDL measurement (mass/volume)Ordered By: Refugio Houston on 12-26-2022 Cholesterol in VLDL [Mass/Vol] 15 mg/dL 5-40 [facility] Serum or plasma creatinine m easurement (mass/volume)Ordered By: Refugio Houston on 12-26-2022 Creatinine [Mass/Vol] 0.85 mg/dL 0.55-1.02 [facility] Comment on above: The validity of the calculated GFR & GFRAA in patients over 70 years has not been determined. Clinical correlation is essential. Serum or plasma low density lipoprotein (LDL) cholesterol measurement (mass/volume)Ordered By: Refugio Houston on 12-26-2022 Cholesterol in LDL [Mass/Vol] 50 mg/dL 0-130 [facility] Serum or plasma urea nitroge n measurement (mass/volume)Ordered By: Refugio Houston on 12-26-2022 Urea nitrogen [Mass/Vol] 18 mg/dL 7-18 [facility] Thin prep Papanicolaou smear with manual screeningOrdered By: Refugio Houston on 12-26-2022 Thin prep Papanicolaou smear with manual screening 19 U/L 15-37 [facility] Thin prep Papanicolaou smear with manual screening 4 5-15 [facility] Whole blood hemoglobin A1c/t otal hemoglobin ratio (mass fraction)Ordered By: Refugio Houston on 12-26-2022 HbA1c (Bld) [Mass fraction] 5.9 % 3.8-5.6 [facility] Comment on above: Normal < 5.7 % Predi abetic 5.7 - 6.4 % Diabetic >or= 6.5 % Please note range changes. Clinic Note - Heme Onc Sched lynn 08-17-2022 Clinic Note - Heme Onc Scheduling Retrieve Patient Instructions: Patient Instructions: Patient Instructions: RetrievePatient Instructions CONSULT APPOINTMENTS: Oncology Consult Appointments: Consult Appointments: Yuliana Alejandra MD Administrative Associate - [facility] [employer] Dermatology [facility] Dermatology [address], [facility], [place] [id number] Email: [email or web address] Scheduling APPT DATE and TIME: End of Visit Documentation: Clinic Location/Phone Number: Clinic Location/Phone Number: Dahlia Akhtar [phone] End Of Visit MU Report Item: Visit Summary given or mailed to patientyes Electronic Signatures: Pina Kim (Rev Cycl Spec) (Signed 17-Aug-2022 08:39) Authored: Retrieve Patient Instructions, CONSULT APPOINTMENTS, End of Visit Documentation Last Updated: 17-Aug-2022 08:39 by Pina Kim (Rev Cycl Spec) Normal [facility] Clinical Event Note-phone me venessa 08-16-2022 Clinical Event Note-phone message Clinical Event: Clinical Event Note: Topicphone message Details Called pt's identified VM to let her know that I reviewed Dr. Mccall's notes. Seems that Dr. Mccall wanted pt to see a bladder changer for changes in skin lesions but pt was unable to get in with Dr. Hinojosa. I will refer to Dr. Alejandra for non-urgent skin check and guidance on skin check frequency given h/o UP and FH of melanoma. DetailsPt said she received VM re referral for bladder changer. Pt said she is in agreement and will await call from schedulers for appt. Message forwarded to Dr. Mckeon team Electronic Signatures: Lisa Mckeon) (Signed 16-Aug-2022 11:51) Authored: Clinical Event Note Cherise Wallace) (Signed 16-Aug-2022 12:07) Authored: Clinical Event Note Last Updated: 16-Aug-2022 12:07 by Cherise Wallace (RAISA) Normal [facility] Note - Heme Onc Sched lynn 08-14-2022 Clinic Note - Heme Onc Scheduling Retrieve Patient Instructions: Patient Instructions: Patient Instructions: RetrievePatient Instructions Return Appointment: Physician/Dept/Guillermina Mckeno Appointment Date & [id number] 10:00 [facility] [phone] Comments1 year follow up/arrive at 9:15 for labs End of Visit Documentation: Clinic Location/Phone Number: Clinic Location/Phone Number: [place] [phone] End Of Visit MU Report Item: Visit Summary given or mailed to patientyes Electronic Signatures: Pina Kim (Rev Cycl Spec) (Signed 14-Aug-2022 13:28) Authored: Retrieve Patient Instructions, RETURN VISITS, End of Visit Documentation Last Updated: 14-Aug-2022 13:28 by Pina Kim (Rev Cycl Spec) Normal [facility] Note - Heme Onc-New V felicia 08-14-2022 Clinic Note - Heme Onc-New Visit Patient Visit Information: Visit Type: New Visit History of Present Illness: ID Statement: URBANO MUSA is a 67 year old Female Chief Complaint: urticaria pigmentosa (cutaneous mastocytosis) Interval History: Pt is a 67 yo F with h/o UP dx by skin bx around age 40. Pt states that the cutaneous lesions are flat, purplish, and predominantly affect her torso but sometimes extend to her hips. She denies flushing, diarrhea, and cough (except related to GERD). Lesions are not bothersome. They are triggered by heat (shower or hot weather). They don't seem to be behaving differently over time. Pt feels in her usual state of health without acute complaints. ROS: Denies fever/chills, headaches, chest pain, dyspnea, cough, sputum production, palpitations, syncope/near-syncope, peripheral edema, nausea/vomiting/diarrhea, taste changes, mouth sores, night sweats, constipation, abdominal pain, melena, dysuria, hematuria, noticeable lymphadenopathy, numbness/tingling, dizziness, and balance/gait disturbance. 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; spends sal in [place] Allergies and Intolerances: Allergies: penicillin: Drug, Itching, Hives/Urticaria, Active sulfa drugs: Drug Category, Rash, Active Outpatient Medication Profile: * Patient Currently Takes Medications as of 05-Jun-2021 11:08 documented in Structured Notes Vitamin B12: 1X MONTHLY pantoprazole 20 mg oral delayed release tablet: 1 tab(s) orally once a day atorvastatin 40 mg oral tablet: 1 tab(s) orally once a day Vitamin D2 50,000 intl units (1.25 mg) oral capsule: 1 cap(s) orally once a week Daily Multi oral tablet: 1 tab(s) orally once a day Medical History: High cholesterol: ICD-10: E78.00, Status: Active Hypercalcemia: ICD-10: E83.52, Status: Active 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, Status: Active Arthritis of knee: ICD-10: M17.10, Status: Active 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, Status: Active GERD (gastroesophageal reflux disease): ICD-10: K21.9, Status: Active Thyroid disease: ICD-10: E07.9, Status: Active Osteopenia: ICD-10: M85.80, Status: Active Surg History: H/O colonoscopy: ICD-10: Z98.890, Status: Active History of knee replacement: ICD-10: Z96.659, Status: Active History of carpal tunnel repair: ICD-10: Z98.890, Status: Active History of dilation and curettage: ICD-10: Z98.890, Status: Active History of 3 sections: ICD-10: Z98.891, Status: Active Social History: Social Substance History: Smoking Statusnever smoker Tobacco Usedenies Alcohol Useoccasionally Drug Usedenies Performance: ECOG Performance Status: 0 Fully Active Karnofsky Score (Age >/ 16 yrs): 90- Able to carry on normal activity Vitals and Measurements: Vitals: Temp: 36.2 HR: 77 RR: 16 BP: 137/79 SPO2%: 98 Measurements: HT(cm): 154.2 WT(kg): 65.9 BSA: 1.68 BMI: 27.7 Physical Exam: Constitutional: Well developed, alert and oriented, no distress, cooperative Eyes: PERRL, EOMI, clear sclera ENMT: mucous membranes moist, no apparent injury, no lesions Head/Neck: Neck supple, no apparent injury, no JVD, trachea midline Respiratory/Thorax: Patent airways, CTAB, unlabored breathing no adventitious sounds Cardiovascular: Regular, rate and rhythm, no murmurs, rubs or gallops Gastrointestinal: Nondistended, soft, non-tender, nondistended; no rebound tenderness or guarding, no masses palpable, no organomegaly, +BS Genitourinary: Deferred Musculoskeletal: ROM intact, normal bulk and tone Extremities: normal extremities, no cyanosis or edema Neurological: alert and oriented x3, intact senses, motor, response and reflexes, normal strength Breast: Deferred Lymphatic: No palpable cervical, supraclavicular, axillary lymphadenopathy Psychological: Appropriate mood and behavior Skin: Warm and dry Almost flat, pale red papules scattered throughout abdomen (few mm in diameter) Lab Results: Results I have reviewed these laboratory results: Comprehensive Metabolic Panel 12-Jul-2022 11:06:00 ResultValue Glucose, Serum 92 NA 140 K 4.5 CL 100 Bicarbonate, Serum 31 Anion Gap, Serum 14 BUN 16 CREAT 0.79 GFR Female 82 Calcium, Serum 10.3 ALB 4.5 ALKP 77 T Pro 7.2 T Bili 0.9 Alanine Aminotransferase, Serum 25 Aspartate Transaminase, Serum 21 Flow Cytometry Test 12-Jul-2022 11:06:00 ResultValue Source Flow Cytometry WHOLE BLD-EDTA Flow Test Ordered ACUTE PANEL Complete Blood Count + Differential 12-Jul-2022 11:06:00 ResultValu (more content not included)... Normal [facility] Clinic Note - Intakeon 08-14 Clinic Note - Intake Patient Visit Information: Visit TypeFollow Up Visit Source of Informationpatient Vital Signs: Temp (degrees C)36.2 degrees C Temperaturecore Heart Rate (beats/min)77 beats per minute Respiration (breaths/min)16 breath per minute BP Systolic (mm Hg)137 mmHg BP Diastolic (mm Hg)79 mmHg BP Mean (mm Hg)98 mmHg Height in cm154.2 centimeter(s) Height Methodmeasured Heightstanding Weight in kg65.9 kilogram(s) Weightstanding BMI (kg/m2)27.7 kg/M2 BSA (m2)1.68 M2 Nursing Verification [id number] Nursing Verification Height in cm154.2 centimeter(s) SpO2 (%)98 % SpO2 Patient Onroom air Pain Screening: Patient States Painno (0) Health Screening: Last [id number] Colonoscopy Resultsnormal Last [id number] Mammography Resultsnormal Last Pap [id number] PAP Resultsnormal Last Dexa [id number] Dexa Scan Resultsnormal Allergies: penicillin: Drug, Itching, Hives/Urticaria, Active sulfa drugs: Drug Category, Rash, Active Outpatient Medication Profile: * Patient Currently Takes Medications as of 14-Aug-2022 12:51 documented in Structured Notes pantoprazole 20 mg oral delayed release tablet: Last Dose Taken: , 1 tab(s) orally once a day atorvastatin 40 mg oral tablet: Last Dose Taken: , 1 tab(s) orally once a day Reclast 5 mg/100 mL intravenous solution: Last Dose Taken: ZyrTEC 10 mg oral tablet: 1 tab(s) orally once a day Vitamin D2 50,000 intl units (1.25 mg) oral capsule: Last Dose Taken: , 1 cap(s) orally once a week Notification: NotificationsAnnual Screens Due Dates Advanced Directives: Aug 14, 2023 Family Violence: Aug 14, 2023 Depression (Due every 6 months for ONC only; all others use Annual date): Feb 10, 2023 Substance Use - Alcohol: Aug 14, 2023 Substance Use - Drugs: Aug 14, 2023 Nutrition: Due Now Learning: Due Now Travel History: COVID-19 Screening Completedno exposure or symptoms Travel or ExposureNO travel to International locations in the past 30 days Falls: Have you fallen in the last 6 monthsno Do you have a fear of fallingno Do you feel you need assistanceno Is the patient using an assistive deviceno Spiritual/Procedural: Spiritual/cultural/religi ous practices important for us to knowno Adv Dir: [facility] Violence: Are you or have you been threatened or abused physically,emotionally or sexually abused by anyoneno Do you feel UNSAFE going back to the place you are livingno Depression: Past 2 wks: Logan down, depressed or hopelessno Past 2 wks: Logan little interest/pleasure doing thingsno Any Thoughts of Harming Othersno In the Past Month: Have you wished you were or could go to sleep and not wake upno In the Past Month: Have you had any actual thoughts of killing yourselfno Lifetime: Have you ever done, started to do, or prepared to do anything to end your lifeno Substance: How many times in the past year have you had 4 or more drinks within 24 hours0 How many times in past year have you used recreational or prescription drugs for non-medical reasons0 Electronic Signatures: Tiffany Rhodes (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 [employer]ST) (Entered 14-Aug-2022 12:52) Entered: Patient Visit Information, Vital Signs, Health Screening, Allergies, Outpatient Medication Profile, Notification, Travel History, Falls, Spiritual/Procedural, Adv Dir, Violence, Depression, Substance Maria E Guerrero (CLIN COOR) (Signed 14-Aug-2022 13:00) Entered: Vital Signs, Notification Authored: Patient Visit Information, Vital Signs, Health Screening, Allergies, Outpatient Medication Profile, Notification, Travel History, Falls, Spiritual/Procedural, Adv Dir, Violence, Depression, Substance Last Updated: 14-Aug-2022 13:00 by Maria E Guerrero (CLIN COOR) Normal [facility] SURF MARKERS >15,PATH REVon 07-16-2022 PATH REV. >15 MARKERS DAVID Normal [facility] Comment on above: Result Comment: By h er/his signature above, the Pathologist listed as making the final interpretation certifies that she/he has personally reviewed this case. Performed By: #### P [id number] #### [facility] [address] [place] [address] SURFACE MARKERS ACUTE PANELo n 07-16-2022 CD19 8 % of Lymph Normal [facility] Comment on above: Result Comment: Poly clonal [place]/Lambda= 1.3/1.0 ([id number]). Performed By: #### C MP #### [address] [address] COMMENT see below Normal [facility] Comment on above: Result Comment: No i mmunophenotypic abnormality was detected. Performed By: #### C MP #### [address] [address] DIAGNOSIS SEE BELOW Normal [facility] Comment on above: Result Comment: No i ncreased or abnormal myeloblast population detected. No immunophenotypic abnormalities of monocytes or granulocytes. No clonal B cell or abnormal T cell population identified. Performed By: #### C MP #### [address] [address] NOTE SEE BELOW Normal [facility] Comment on above: Result Comment: Clin ical correlation is suggested. Performed By: #### C MP #### [address] [address] SURFACE MARKERS ACUTE PANELo n 07-14-2022 CD4 43 % of Lymph Normal [facility] Comment on above: Performed By: #### C MP #### [address] [address] CD8 42 % of Lymph Normal [facility] Comment on above: Performed By: #### C MP #### [address] [address] Granulocytes/100 WBC (Bld) 64 % Normal [facility] Comment on above: Performed By: #### C MP #### [address] [address] Lymphocytes/100 WBC (Bld) 24 % Normal [facility] Comment on above: Performed By: #### C MP #### [address] [address] Monocytes/100 WBC (Bld) 7 % Normal [facility] Comment on above: Performed By: #### C MP #### [place] [id number] MYELOBLAST CD34+CD117+ % 0.00 % Normal [facility] Comment on above: Performed By: #### C MP #### [address] [address] NK 7 % of Lymph Normal [facility] Comment on above: Performed By: #### C MP #### [place] [id number] NUMBER OF CELLS COLLECTED 100,000 per tube Normal [facility] Comment on above: Performed By: #### C MP #### [place] [id number] SPECIMEN VIABILITY Acceptable Normal [facility] Comment on above: Result Comment: Flow cytometry results should be interpreted in the context of morphology. Flow cytometry findings may be unreliable due to sampling issues, differential loss or recovery of cell populations ex vivo, or low viability. Performed By: #### C MP #### [place] [id number] COMPREHENSIVE PANELon 2022 Albumin [Mass/Vol] 4.5 g/dL Normal 3.4 - 5.0 [facility] Comment on above: Performed By: #### C MP #### [facility] [address] [place] [address] ALP [Catalytic activity/Vol] 77 U/L Normal 33 - 136 [facility] Comment on above: Performed By: #### C MP #### [facility] [address] [place] [address] ALT [Catalytic activity/Vol] 25 U/L Normal 7 - 45 [facility] Comment on above: Result Comment: Marielena ents treated with Sulfasalazine may generate falsely decreased results for ALT. Performed By: #### C MP #### [facility] [address] [place] [address] Anion gap [Moles/Vol] 14 mmol/L Normal 10 - 20 [facility] Comment on above: Performed By: #### C MP #### [facility] [address] [place] [address] AST [Catalytic activity/Vol] 21 U/L Normal 9 - 39 [facility] Comment on above: Performed By: #### C MP #### [facility] [address] [place] [address] Bilirubin [Mass/Vol] 0.9 mg/dL Normal 0.0 - 1.2 [facility] Comment on above: Performed By: #### C MP #### [facility] [id number] [place] [address] Calcium [Mass/Vol] 10.3 mg/dL Normal 8.6 - 10.6 [facility] Comment on above: Performed By: #### C MP #### [facility] [address] [place] [address] Chloride [Moles/Vol] 100 mmol/L Normal 98 - 107 [facility] Comment on above: Performed By: #### C MP #### [place] [address] [place] [address] Creatinine [Mass/Vol] 0.79 mg/dL Normal 0.50 - 1.05 [facility] Comment on above: Performed By: #### C MP #### [facility] [address] [place] [address] GFR/1.73 sq M.predicted among non-blacks MDRD (S/P/Bld) [Vol rate/Area] 82 mL/min/{1.73_m2} Normal >90 [facility] Comment on above: Result Comment: CALC ULATIONS OF ESTIMATED GFR ARE PERFORMED USING THE 2020 CKD-EPI STUDY REFIT EQUATION WITHOUT THE RACE VARIABLE FOR THE IDMS-TRACEABLE CREATININE METHODS. https://jasn.asnjournals.org/content/early//ASN.52871 96375 Performed By: #### C MP #### [facility] [address] [place] [address] Glucose [Mass/Vol] 92 mg/dL Normal 74 - 99 [facility] Comment on above: Performed By: #### C MP #### [facility] [address] [place] [address] HCO3 (Bld) [Moles/Vol] 31 mmol/L Normal 21 - 32 [facility] Comment on above: Performed By: #### C MP #### [facility] [address] [place] [address] Potassium [Moles/Vol] 4.5 mmol/L Normal 3.5 - 5.3 [facility] Comment on above: Performed By: #### C MP #### [facility] [address] [place] [address] Protein [Mass/Vol] 7.2 g/dL Normal 6.4 - 8.2 [facility] Comment on above: Performed By: #### C MP #### [facility] [address] [place] [address] Sodium [Moles/Vol] 140 mmol/L Normal 136 - 145 [facility] Comment on above: Performed By: #### C MP #### [facility] [address] [place] [address] Urea nitrogen [Mass/Vol] 16 mg/dL Normal 6 - 23 [facility] Comment on above: Performed By: #### C MP #### [facility] [address] [place] [address] FLOW CYTOMETRY TESTon 2022 FLOW TEST ORDERED ACUTE PANEL Normal [facility] Comment on above: Performed By: #### C MP #### [address] [address] SOURCE WHOLE BLD-EDTA Normal [facility] Comment on above: Performed By: #### C MP #### [address] [address] LDHon 07-13-2022 LDH 173 U/L Normal 84 - 246 [facility] Comment on above: Performed By: #### L DH #### [facility] [address] [place] [address] SURFACE MARKERS ACUTE PANELo n 07-13-2022 CELL COUNT 7.5 x10E9/L Normal [facility] Comment on above: Performed By: #### C MP #### [address] [address] METHOD SEE BELOW Normal [facility] Comment on above: Result Comment: This test is a multicolor, whole blood lysis assay. It was developed and its performance characteristics determined by the Department of Pathology, [facility], and has not been cleared or approved by the U.S. Food and Drug Administration. The laboratory is regulated under CLIA as qualified to perform high complexity testing. This test is used for clinical purposes. It should not be regarded as investigational or for research. Immunophenotypic analysis was performed using the following antibodies: CD45, CD71, CD1c, CD304, CD34, CD14, CD20, CD10, CD38, CD19, CD15, CD117, CD33, HLADR, CD8, CD7, CD4, CD3, CDC56, CD13, CD5, CD2, CD177, CD163, CD11b, CD16, [place], Lambda, CD9, CD22. Performed By: #### C MP #### [place] [address] SPECIMEN SITE Peripheral Blood Normal [facility] Comment on above: Performed By: #### C MP #### [place] [address] CBC AND DIFFERENTIALon 07-12 % AUTOMATED IMMATURE GRAN 0.1 % Normal 0.0 - 0.9 [facility] Comment on above: Result Comment: Mary Beth ture Granulocyte Count (IG) includes promyelocytes, myelocytes and metamyelocytes but does not include bands. Percent differential counts (%) should be interpreted in the context of the absolute cell counts (cells/L). Performed By: #### C BCDF #### [address] [address] Basophils (Bld) [#/Vol] 0.05 10*3/uL Normal 0.00 - 0.10 [facility] Comment on above: Performed By: #### C BCDF #### [address] [address] Basophils/100 WBC (Bld) 0.7 % Normal 0.0 - 2.0 [facility] Comment on above: Performed By: #### C BCDF #### [address] [address] Eosinophils (Bld) [#/Vol] 0.13 10*3/uL Normal 0.00 - 0.70 [facility] Comment on above: Performed By: #### C BCDF #### [address] [address] Eosinophils/100 WBC (Bld) 1.7 % Normal 0.0 - 6.0 [facility] Comment on above: Performed By: #### C BCDF #### [address] [address] Erythrocyte distribution width (RBC) [Ratio] 13.0 % Normal 11.5 - 14.5 [facility] Comment on above: Performed By: #### C BCDF #### [address] [address] Hematocrit (Bld) [Volume fraction] 46.6 % High 36.0 - 46.0 [facility] Comment on above: Performed By: #### C BCDF #### [address] [address] Hemoglobin (Bld) [Mass/Vol] 14.8 g/dL Normal 12.0 - 16.0 [facility] Comment on above: Performed By: #### C BCDF #### [address] [address] Lymphocytes (Bld) [#/Vol] 1.92 10*3/uL Normal 1.20 - 4.80 [facility] Comment on above: Performed By: #### C BCDF #### [address] [address] Lymphocytes/100 WBC (Bld) 25.6 % Normal 13.0 - 44.0 [facility] Comment on above: Performed By: #### C BCDF #### [address] [address] MCHC (RBC) [Mass/Vol] 31.8 g/dL Low 32.0 - 36.0 [facility] Comment on above: Performed By: #### C BCDF #### [address] [address] MCV (RBC) [Entitic vol] 96 fL Normal 80 - 100 [facility] Comment on above: Performed By: #### C BCDF #### [place] [address] [address] Monocytes (Bld) [#/Vol] 0.52 10*3/uL Normal 0.10 - 1.00 [facility] Comment on above: Performed By: #### C BCDF #### [place] [address] [address] Monocytes/100 WBC (Bld) 6.9 % Normal 2.0 - 10.0 [facility] Comment on above: Performed By: #### C BCDF #### [place] [address] [address] Neutrophils (Bld) [#/Vol] 4.88 10*3/uL Normal 1.20 - 7.70 [facility] Comment on above: Result Comment: Perc ent differential counts (%) should be interpreted in the context of the absolute cell counts (cells/L). Performed By: #### C BCDF #### [address] [address] Neutrophils/100 WBC (Bld) 65.0 % Normal 40.0 - 80.0 [facility] Comment on above: Performed By: #### C BCDF #### [address] [address] Platelets (Bld) [#/Vol] 259 10*3/uL Normal 150 - 450 [facility] Comment on above: Performed By: #### C BCDF #### [place] [address] [address] RBC 4.83 x10E12/L Normal 4.00 - 5.20 [facility] Comment on above: Performed By: #### C BCDF #### [address] [address] WBC (Bld) [#/Vol] 7.5 10*3/uL Normal 4.4 - 11.3 [facility] Comment on above: Performed By: #### C BCDF #### [place] [address] [address] HEMOGLOBIN A1Con 07-12-2022 Glucose [Mass/Vol] 128 mg/dL Normal [facility] Comment on above: Performed By: #### H BA1E #### [address] [address] HbA1c (Bld) [Mass fraction] 6.1 % Abnormal [facility] Comment on above: Result Comment: Diag nosis of Diabetes-Adults Non-Diabetic: < or = 5.6% Increased risk for developing diabetes: 5.7-6.4% Diagnostic of diabetes: > or = 6.5% . Monitoring of Diabetes Age (y) Therapeutic Goal (%) Adults: >18 <7.0 Pediatrics: 13-18 <7.5 7-12 <8.0 0- 6 7.5-8.5 [place] [employer]. Diabetes Care 33(S1), Apr 2009. Performed By: #### H BA1E #### [address] [address] XR FOOT RIGHT 3+ VIEWS (NEVAEH DARD)on 06-11-2022 XR FOOT RIGHT 3+ VIEWS (STANDARD) Joint space narrowing noted to the first metatarsophalangeal joint. Subchondral sclerosis noted to the base of the proximal phalanx of hallux. Dorsal flag sign noted to the first metatarsal head. Dictated by: MALLORY CRAWFORD on SatJun 11, 2022 11:13:09 AM EST Transcribed by: MALLORY CRAWFORD on SatJun 11, 2022 11:13:09 AM EST Finalized by: MALLORY CRAWFORD on SatJun 11, 2022 11:13:09 AM EST Normal [facility] Comment on above: Order Comment: Injur y/Trauma or Illness?:Illness/Other How long have you had these symptoms (acute/chronic)?:Acute Reason for exam?:pain History of cancer?:u Surgeries, chemotherapy, or radiation?:u Type of Exam?:Initial Additional signs and symptoms?:lump Medicare Annual Wellness Vis iton 01-31-2022 Medicare Annual Wellness Visit *Chief Complaint MCW..REV LABS. B12 INJ History of Present Illness The patient is being seen for the subsequent annual wellness visit. Past Medical, Surgical and Family History: reviewed and updated in chart. Interval History: Patient has not been hospitalized previously. Medications and Supplements: No, the patient is not using opioids. Patient Self Assessment of Health Status: good. Tobacco use: Non-User Alcohol use: User, As noted in social history 1/d. Illicit drug use: Non-User Current diet: well balanced diet. Exercise Frequency: infrequently. Depression/Suicide Screening: . During the past 2 weeks, the patient has not felt down, depressed or hopeless. During the past 2 weeks, the patient has not felt little interest or pleasure in doing things. Hearing Impairment: none. Cognitive Impairment: No cognitive impairment observed. Bathing: performs independently. Dressing: performs independently. Walking: performs independently. Toileting: performs independently. Feeding: performs independently. Personal Hygiene: performs independently. Bowels: continent. Bladder: continent. Managing Finances: performs independently. Shopping: performs independently. Managing Medications: performs independently. Housework / Basic Home Maintenance: performs independently. Handling Transportation: performs independently. Preparing Meals: performs independently. Using the Telephone/ Communication Devices: performs independently. Falls Risk Screening:. URBANO has not fallen in the last 6 months. Home safety risk factors: no grab bars in the bathroom. Advance directives:. Advance Care Planning discussed and documented in the medical record, patient did not wish or was not able to name a surrogate decision maker or provide an advance care plan. Patient has living will. Patient has healthcare POA. Since the last office visit there have been no interval operations, hospitalizations, important illnesses or injuries. had reclast with flu like sx. Dr [place] endocrine in [place] GERD-Takes PPI daily with no breakthrough symptoms. Reviewed dietary, caffeine, tobacco, alcohol, and NSAID avoidance. IGT- will monitor. osteopenia Hyperlipidemia- is on statin and a prudent diet. Review of Systems General-no fatigue weight to within 10 pounds ENT no problems with vision swallowing Cardiac no chest pains palpitations change in exercise tolerance or capacity Pulmonary no cough shortness of breath GI no heartburn or abdominal pain Musculoskeletal some joint pains *Active Problems Atherosclerosis 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 (414.01) (I25.10) Elevated fasting glucose (790.21) (R73.01) Encounter for immunization (V03.89) (Z23) GERD (gastroesophageal reflux disease) (530.81) (K21.9) Impaired glucose tolerance (790.22) (R73.02) Inflammatory arthropathy (714.9) (M19.90) Knee pain, right (719.46) (M25.561) Left knee pain (719.46) (M25.562) Osteoarthritis, knee (715.36) (M17.9) Screen for colon cancer (V76.51) (Z12.11) Screening for cardiovascular condition (V81.2) (Z13.6) Vitamin B12 deficiency (266.2) (E53.8) Past Medical History History of bone density study (V15.89) (Z92.89) History of mammogram (V15.89) (Z92.89) Surgical History History of Carpal tunnel surgery History of section History of Colonoscopy History of Dilation and curettage History of Knee replacement partial knee replacement, dr moore Family History No pertinent family history Family history of acute myocardial infarction (V17.3) (Z82.49) Family history of cardiac disorder (V17.49) (Z82.49) Family history of coronary artery disease (V17.3) (Z82.49) Family history of diabetes mellitus (V18.0) (Z83.3) Family history of hypertension (V17.49) (Z82.49) Family history of Pulmonary tuberculosis Family history of malignant neoplasm of skin (V16.8) (Z80.8) Social History Consumes alcohol (V49.89) (Z78.9) Never chewed tobacco (V49.89) (Z78.9) Non-smoker (V49.89) (Z78.9) Patient has healthcare proxy and living will (V49.89) (Z78.9) *Allergies Erythromycin TABS Abdominal pain; Recorded By: [facility]; 06/02/2019 4:50:37 PM Penicillins Itching; Recorded By: Sakshi [facility]; 06/02/2019 4:50:37 PM Sulfa Drugs Rash; Recorded By: Sakshi Heart; 06/02/2019 4:50:37 PM *Current Meds Medication NameInstruction Atorvastatin Calcium 40 MG Oral TabletTAKE 1 TABLET DAILY. Pantoprazole Sodium 40 MG Oral Tablet Delayed ReleaseTAKE 1 TABLET DAILY. Reclast 5 MG/100ML Intravenous Solution Vitamin D (Ergocalciferol) 1.25 MG (82554 UT) Oral CapsuleTAKE 1 CAPSULE WEEKLY. Zyrtec 10 MG TABSTAKE 1 TABLET AT BEDTIME. Immunizations Influenza --- Series1: Mar 18 2007 12:00AM (51y); Series2: Mar 09 2008 12:00AM (52y); Series3: Mar 07 2009 12:00AM (53y) Moderna COVID-19 Vaccine 100 MCG/0.5ML Intramuscular Suspension --- Series1: 17-Jun-2020 (65y); Series2: - (more content not included)... Normal [facility] Tobacco Screening.on 022 Adult depression screening assessment No [facility] Work Phone: Fall risk assessment b) One or more fall s in the last year [facility] Work Phone: Tobacco use status CPHS b) No [facility] Work Phone: CBCon 01-24-2022 Erythrocyte distribution width (RBC) [Ratio] 13.2 % Normal 11.5 - 14.5 [facility] Comment on above: Performed By: #### C BC #### [address] [address] Hematocrit (Bld) [Volume fraction] 44.1 % Normal 36.0 - 46.0 [facility] Comment on above: Performed By: #### C BC #### [address] [address] Hemoglobin (Bld) [Mass/Vol] 14.3 g/dL Normal 12.0 - 16.0 [facility] Comment on above: Performed By: #### C BC #### [address] [address] MCHC (RBC) [Mass/Vol] 32.3 g/dL Normal 32.0 - 36.0 [facility] Comment on above: Performed By: #### C BC #### [address] [address] MCV (RBC) [Entitic vol] 94 fL Normal 80 - 100 [facility] Comment on above: Performed By: #### C BC #### [address] [place] [address] Platelets (Bld) [#/Vol] 397 10*3/uL Normal 150 - 450 [facility] Comment on above: Performed By: #### C BC #### [address] [address] RBC 4.70 x10E12/L Normal 4.00 - 5.20 [facility] Comment on above: Performed By: #### C BC #### [address] [address] WBC (Bld) [#/Vol] 5.2 10*3/uL Normal 4.4 - 11.3 [facility] Comment on above: Performed By: #### C BC #### [address] [address] COMPREHENSIVE PANELon 2021 Albumin [Mass/Vol] 4.5 g/dL Normal 3.4 - 5.0 [facility] Comment on above: Performed By: #### C MP #### [address] [address] ALP [Catalytic activity/Vol] 99 U/L Normal 33 - 136 [facility] Comment on above: Performed By: #### C MP #### [address] [address] ALT [Catalytic activity/Vol] 23 U/L Normal 7 - 45 [facility] Comment on above: Result Comment: Marielena ents treated with Sulfasalazine may generate falsely decreased results for ALT. Performed By: #### C MP #### [address] [address] Anion gap [Moles/Vol] 11 mmol/L Normal 10 - 20 [facility] Comment on above: Performed By: #### C MP #### [address] [address] AST [Catalytic activity/Vol] 21 U/L Normal 9 - 39 [facility] Comment on above: Performed By: #### C MP #### [address] [address] Bilirubin [Mass/Vol] 0.6 mg/dL Normal 0.0 - 1.2 [facility] Comment on above: Performed By: #### C MP #### [address] [address] Calcium [Mass/Vol] 9.7 mg/dL Normal 8.6 - 10.3 [facility] Comment on above: Performed By: #### C MP #### [address] [address] Chloride [Moles/Vol] 103 mmol/L Normal 98 - 107 [facility] Comment on above: Performed By: #### C MP #### [address] [address] Creatinine [Mass/Vol] 0.74 mg/dL Normal 0.50 - 1.05 [facility] Comment on above: Performed By: #### C MP #### [address] [address] GFR/1.73 sq M.predicted among non-blacks MDRD (S/P/Bld) [Vol rate/Area] 89 mL/min/{1.73_m2} Normal >90 [facility] Comment on above: Result Comment: CALC ULATIONS OF ESTIMATED GFR ARE PERFORMED USING THE 2020 CKD-EPI STUDY REFIT EQUATION WITHOUT THE RACE VARIABLE FOR THE IDMS-TRACEABLE CREATININE METHODS. https://jasn.asnjournals.org/content/early//ASN.94131 [address] Performed By: #### C MP #### [address] [address] Glucose [Mass/Vol] 105 mg/dL High 74 - 99 [facility] Comment on above: Performed By: #### C MP #### [address] [address] HCO3 (Bld) [Moles/Vol] 32 mmol/L Normal 21 - 32 [facility] Comment on above: Performed By: #### C MP #### [address] [address] Potassium [Moles/Vol] 4.8 mmol/L Normal 3.5 - 5.3 [facility] Comment on above: Performed By: #### C MP #### [address] [address] Protein [Mass/Vol] 6.9 g/dL Normal 6.4 - 8.2 [facility] Comment on above: Performed By: #### C MP #### [address] [address] Sodium [Moles/Vol] 141 mmol/L Normal 136 - 145 [facility] Comment on above: Performed By: #### C MP #### [address] [address] Urea nitrogen [Mass/Vol] 12 mg/dL Normal 6 - 23 [facility] Comment on above: Performed By: #### C MP #### [address] [address] HEMOGLOBIN A1Con 01-24-2022 Glucose [Mass/Vol] 137 mg/dL Normal [facility] Comment on above: Performed By: #### H BA1E #### [address] [address] HbA1c (Bld) [Mass fraction] 6.4 % Abnormal [facility] Comment on above: Result Comment: Diag nosis of Diabetes-Adults Non-Diabetic: < or = 5.6% Increased risk for developing diabetes: 5.7-6.4% Diagnostic of diabetes: > or = 6.5% . Monitoring of Diabetes Age (y) Therapeutic Goal (%) Adults: >18 <7.0 Pediatrics: 13-18 <7.5 7-12 <8.0 0- 6 7.5-8.5 [place] [employer]. Diabetes Care 33(S1), Apr 2009. Performed By: #### H BA1E #### [address] [address] Hemoglobin A1Con 01-24-2022 Glucose [Mass/Vol] 137 mg/dL -[facility] Work Phone: HbA1c (Bld) [Mass fraction] 6.4 % Abnormal [facility] Work Phone: Comment on above: Diagnosis of Diabete s-Adults Non-Diabetic: < or = 5.6% Increased risk for developing diabetes: 5.7-6.4% Diagnostic of diabetes: > or = 6.5%. Monitoring of Diabetes Age (y) Therapeutic Goal (%) Adults: >18 <7.0 Pediatrics: 13-18 <7.5 7-12 <8.0 0- 6 7.5-8.5 [place] [employer]. Diabetes Care 33(S1), Apr 2009. LIPID PANEL (CORONARY RISK 2 )on 01-24-2022 Cholesterol [Mass/Vol] 131 mg/dL Normal 0 - 199 [facility] Comment on above: Result Comment: . AGE DESIRABLE BORDERLINE HIGH HIGH 0-19 Y 0 - 169 170 - 199 >/= 200 20-24 Y 0 - 189 190 - 224 >/= 225 >24 Y 0 - 199 200 - 239 >/= 240 All ranges are based on fasting samples. Specific therapeutic targets will vary based on patient-specific cardiac risk. . Pediatric guidelines reference:Pediatrics 2011, 128(S5). Adult guidelines reference: NCEP ATPIII Guidelines, NEGAR 2001, 258:2486-97 . Venipuncture immediately after or during the administration of Metamizole may lead to falsely low results. Testing should be performed immediately prior to Metamizole dosing. Performed By: #### L IPID #### [address] [address] Cholesterol in HDL [Mass/Vol] 61.0 mg/dL Normal [facility] Comment on above: Result Comment: . AGE VERY LOW LOW NORMAL HIGH 0-19 Y < 35 < 40 40-45 ---- 20-24 Y ---- < 40 >45 ---- >24 Y ---- < 40 40-60 >60 . Performed By: #### L IPID #### [address] [address] Cholesterol in LDL [Mass/Vol] 55 mg/dL Normal 0 - 99 [facility] Comment on above: Result Comment: . NEAR BORD AGE DESIRABLE OPTIMAL HIGH HIGH VERY HIGH 0-19 Y 0 - 109 --- 110-129 >/= 130 ---- 20-24 Y 0 - 119 --- 120-159 >/= 160 ---- >24 Y 0 - 99 100-129 130-159 160-189 >/=190 . Performed By: #### L IPID #### [address] [address] Cholesterol in VLDL [Mass/Vol] 15 mg/dL Normal 0 - 40 [facility] Comment on above: Performed By: #### L IPID #### [address] [address] Cholesterol.total/Chol esterol in HDL [Mass ratio] 2.1 {ratio} Normal [facility] Comment on above: Result Comment: REF VALUES DESIRABLE < 3.4 HIGH RISK > 5.0 Performed By: #### L IPID #### [address] [address] Triglyceride [Mass/Vol] 73 mg/dL Normal 0 - 149 [facility] Comment on above: Result Comment: . AGE DESIRABLE BORDERLINE HIGH HIGH VERY HIGH 0 D-90 D 19 - 174 ---- ---- ---- 91 D- 9 Y 0 - 74 75 - 99 >/= 100 ---- 10-19 Y 0 - 89 90 - 129 >/= 130 ---- 20-24 Y 0 - 114 115 - 149 >/= 150 ---- >24 Y 0 - 149 150 - 199 200- 499 >/= 500 . Venipuncture immediately after or during the administration of Metamizole may lead to falsely low results. Testing should be performed immediately prior to Metamizole dosing. Performed By: #### L IPID #### [address] [address] Laboratory - Chemistry and C hemistry - challengeon 01-24-2022 Albumin BCP dye [Mass/Vol] 4.5 g/dL 3.4 - 5.0 [employer] Work Phone: ALP [Catalytic activity/Vol] 99 U/L 33 - 136 [facility] Work Phone: ALT With P-5'-P [Catalytic activity/Vol] 23 U/L 7 - 45 [facility] [place] Work Phone: Comment on above: Patients treated wit h Sulfasalazine may generate falsely decreased results for ALT. Anion gap [Moles/Vol] 11 mmol/L 10 - 20 [facility] Work Phone: AST With P-5'-P [Catalytic activity/Vol] 21 U/L 9 - 39 [facility] Work Phone: Bilirubin [Mass/Vol] 0.6 mg/dL 0.0 - 1.2 [facility] Work Phone: Calcium [Mass/Vol] 9.7 mg/dL 8.6 - 10.3 [facility] Work Phone: Chloride [Moles/Vol] 103 mmol/L 98 - 107 [facility] Work Phone: CO2 [Moles/Vol] 32 mmol/L 21 - 32 [facility] Work Phone: Creatinine [Mass/Vol] 0.74 mg/dL See Below [facility] Work Phone: Comment on above: Reference Range: 0.5 0 - 1.05 Glucose [Mass/Vol] 105 mg/dL above high threshold 74 - 99 [facility] Work Phone: Potassium [Moles/Vol] 4.8 mmol/L 3.5 - 5.3 [facility] Work Phone: Protein [Mass/Vol] 6.9 g/dL 6.4 - 8.2 [facility] Work Phone: Sodium [Moles/Vol] 141 mmol/L 136 - 145 [facility] Work Phone: Urea nitrogen [Mass/Vol] 12 mg/dL 6 - 23 [facility] Work Phone: Laboratory - Hematology and Cell countson 01-24-2022 Erythrocyte distribution width (RBC) [Ratio] 13.2 % See Below [facility] Work Phone: Comment on above: Reference Range: 11. 5 - 14.5 Hematocrit (Bld) [Volume fraction] 44.1 % See Below [facility] Work Phone: Comment on above: Reference Range: 36. 0 - 46.0 Hemoglobin (Bld) [Mass/Vol] 14.3 g/dL See Below [facility] Work Phone: Comment on above: Reference Range: 12. 0 - 16.0 MCHC (RBC) [Mass/Vol] 32.3 g/dL See Below [facility] Work Phone: Comment on above: Reference Range: 32. 0 - 36.0 MCV (RBC) [Entitic vol] 94 fL 80 - 100 [facility] Work Phone: Platelets (Bld) [#/Vol] 397 10*3/uL 150 - 450 [facility] Work Phone: RBC (Bld) [#/Vol] 4.70 {x10E12/L} See Below [facility] Work Phone: Comment on above: Reference Range: 4.0 0 - 5.20 WBC (Bld) [#/Vol] 5.2 10*3/uL 4.4 - 11.3 [facility] Work Phone: Lipid Panelon 01-24-2022 Cholesterol [Mass/Vol] 131 mg/dL 0 - 199 [facility] Work Phone: Comment on above: . AGE DESIRABLE BORD LYNDSAY HIGH HIGH 0-19 Y 0 - 169 170 - 199 >/= 200 20-24 Y 0 - 189 190 - 224 >/= 225 >24 Y 0 - 199 200 - 239 >/= 240 All ranges are based on fasting samples. Specific therapeutic targets will vary based on patient-specific cardiac risk.. Pediatric guidelines reference:Pediatrics 2011, 128(S5). Adult guidelines reference: NCEP ATPIII Guidelines, NEGAR 2001, 258:2486-97. Venipuncture immediately after or during the administration of Metamizole may lead to falsely low results. Testing should be performed immediately prior to Metamizole dosing. Cholesterol in HDL [Mass/Vol] 61.0 mg/dL [facility] Work Phone: Comment on above: . AGE VERY LOW LOW N ORMAL HIGH 0-19 Y < 35 < 40 40-45 ---- 20-24 Y ---- < 40 >45 ---- >24 Y ---- < 40 40-60 >60. Cholesterol in LDL [Mass/Vol] 55 mg/dL 0 - 99 [facility] Work Phone: Comment on above: . NEAR BORD AGE KASIA RABLE OPTIMAL HIGH HIGH VERY HIGH 0-19 Y 0 - 109 --- 110-129 >/= 130 ---- 20-24 Y 0 - 119 --- 120-159 >/= 160 ---- >24 Y 0 - 99 100-129 130-159 160-189 >/=190. Cholesterol.total/Chol esterol in HDL [Mass ratio] 2.1 {ratio} [facility] Work Phone: Comment on above: REF VALUESDESIRABLE < 3.4HIGH RISK > 5.0 Triglyceride [Mass/Vol] 73 mg/dL 0 - 149 [facility] Work Phone: Comment on above: . AGE DESIRABLE BORD LYNDSAY HIGH HIGH VERY HIGH 0 D-90 D 19 - 174 ---- ---- ----91 D- 9 Y 0 - 74 75 - 99 >/= 100 ---- 10-19 Y 0 - 89 90 - 129 >/= 130 ---- 20-24 Y 0 - 114 115 - 149 >/= 150 ---- >24 Y 0 - 149 150 - 199 200- 499 >/= 500. Venipuncture immediately after or during the administration of Metamizole may lead to falsely low results. Testing should be performed immediately prior to Metamizole dosing. Lipid Panel 15 mg/dL 0 - 40 [facility] Work Phone: No Panel Informationon 01-24 89 {mL/min/1.73m2} >90 [facility] Work Phone: Comment on above: CALCULATIONS OF ANJALI MATED GFR ARE PERFORMED USING THE 2020 CKD-EPI STUDY REFIT EQUATION WITHOUT THE RACE VARIABLE FOR THE IDMS-TRACEABLE CREATININE METHODS.https://jasn.asnjournals.org/content/22/A SN.6925550655 Absolute lymphocyte counton 11-23-2021 Lymphocytes Auto (Unsp spec) [#/Vol] 1.81 10*3/uL 0.83-4.51 [facility] Work Phone: Basophil percentageon 2021 Basophils/100 WBC (Bld) 1.2 % 0-1 [facility] Work Phone: [phone] Bilirubin [Mass/Vol] 0.80 mg/dL 0.20-1.00 [facility] Work Phone: Comment on above: For patients on eltr ombopag therapy, use of Dimension [place]cam[place] TBIL is not recommended. Chloride [Moles/Vol] 102 mmol/L 98-107 [facility] Work Phone: [phone] Eosinophils/100 WBC (Bld) 2.0 % 0-5 [facility] Work Phone: [phone] Glucose [Mass/Vol] 114 mg/dL 74-106 [facility] Work Phone: Comment on above: Fasting Glucose resu lt from 100 to 125 mg/dL suggests IMPAIRED HOMEOSTASIS per A.D.A. criteria. Neutrophils (Bld) [#/Vol] 2.6 10*3/uL 2.0-7.7 [facility] Work Phone: Neutrophils/100 WBC (Bld) 51.2 % 47-70 [facility] Work Phone: Potassium [Moles/Vol] 3.7 mmol/L 3.5-5.1 [facility] Work Phone: Protein [Mass/Vol] 7.6 g/dL 6.4-8.2 [facility] Work Phone: Sodium [Moles/Vol] 138 mmol/L 136-145 [facility] Work Phone: [phone] WBC (Bld) [#/Vol] 5.1 10*3/uL 4.4-11.0 [facility] Work Phone: Blood erythrocytes count (nu mber/volume)on 11-23-2021 RBC (Bld) [#/Vol] 4.74 10*6/uL 4.2-5.4 [facility] Work Phone: Blood hemoglobin measurement (mass/volume)on 11-23-2021 Hemoglobin (Bld) [Mass/Vol] 14.7 g/dL 12.0-15.0 [facility] Work Phone: Blood lymphocytes/100 leukoc yteson 11-23-2021 Lymphocytes/100 WBC (Bld) 35.6 % 19-41 [facility] Work Phone: Blood monocytes/100 leukocyt eson 11-23-2021 Monocytes/100 WBC (Bld) 9.6 % 0-10 [facility] Work Phone: Blood platelet mean volumeon 11-23-2021 Platelet mean volume (Bld) [Entitic vol] 9.9 fL 6.2-12.0 [facility] Work Phone: Determination of erythrocyte mean corpuscular volume (MCV)on 11-23-2021 MCV (RBC) [Entitic vol] 96.8 fL 81-99 [facility] Work Phone: Hematocrit Auto (Bld) [Volum e fraction]on 11-23-2021 Hematocrit (Bld) [Volume fraction] 45.9 % 37-47 [facility] Work Phone: Laboratory - Chemistry and C hemistry - challengeon 11-23-2021 ALP [Catalytic activity/Vol] 106 U/L 45-117 [facility] Work Phone: ALT [Catalytic activity/Vol] 30 U/L 13-56 [facility] Work Phone: CO2 [Moles/Vol] 32.0 mmol/L 21.0-32.0 [facility] Work Phone: Free T4 [Mass/Vol] 0.98 ng/dL 0.76-1.46 [facility] Work Phone: Globulin (S) [Mass/Vol] 3.6 g/dL 2.2-4.2 [facility] Work Phone: Urea nitrogen/Creatinine [Mass ratio] 30.1 mg/mg 10-20 [facility] Work Phone: Laboratory - Hematology and Cell countson 11-23-2021 Erythrocyte distribution width (RBC) [Entitic vol] 45.5 fL 35.1-43.9 [facility] Work Phone: Erythrocyte distribution width (RBC) [Ratio] 12.7 % 11.6-14.6 [facility] Work Phone: Immature granulocytes/100 WBC (Bld) 0.400 % 0.0-0.9 [facility] Work Phone: Comment on above: IG% - Immature Granu locytes (promyelocytes, myelocytes and metamyelocytes) > 1% indicates that a LEFT SHIFT is Present. MCH (RBC) [Entitic mass] 31.0 pg 27.0-32.0 [facility] Work Phone: Nucleated RBC/100 WBC (Bld) [Ratio] 0 % 0-5 [facility] Work Phone: MCHC Auto (RBC) [Mass/Vol]on 11-23-2021 MCHC (RBC) [Mass/Vol] 32.0 g/dL 32-36 [facility] Work Phone: No Panel Informationon 11-23 Estimated GFR (MDRD) Amer 88 mL/min >60 [facility] Work Phone: Comment on above: GFR Calc Estimated GFR (MDRD) Non-Af Amer 73 mL/min >60 [facility] Work Phone: [phone] Comment on above: Non- GFR Calc Parathyroid Hormone (Intact) 43.7 pg/mL 18.4-80.1 [facility] Work Phone: Thyroid Stimulating Hormone (TSH) 2.65 uIU/mL 0.358-3.74 [facility] Work Phone: Vitamin D 25-Hydroxy 67.9 ng/mL [facility] Work Phone: Comment on above: Vitamin D 25(OH) Sta tus Range Deficiency <20 ng/mL (50nmol/L) Insufficiency 20 - 30 ng/mL (50 - 75 nmol/L) Sufficiency 30 - 100 ng/mL (75 - 250 nmol/L) Toxicity >100 ng/mL (>250 nmol/L) Platelets bldon 11-23-2021 Platelets (Bld) [#/Vol] 283 10*3/uL 150-450 [facility] Work Phone: Serum or plasma albumin gracy urement (mass/volume)on 11-23-2021 Albumin [Mass/Vol] 4.0 g/dL 3.2-5.0 [facility] Work Phone: Serum or plasma albumin/glob ulin mass ratioon 11-23-2021 Albumin/Globulin [Mass ratio] 1.1 {ratio} 0.9-2.4 [facility] Work Phone: Serum or plasma calcium gracy urement (mass/volume)on 11-23-2021 Calcium [Mass/Vol] 9.6 mg/dL 8.5-10.1 [facility] Work Phone: Serum or plasma creatinine m easurement (mass/volume)on 11-23-2021 Creatinine [Mass/Vol] 0.83 mg/dL 0.55-1.02 [facility] Work Phone: Comment on above: The validity of the calculated GFR & GFRAA in patients over 70 years has not been determined. Clinical correlation is essential. Serum or plasma urea nitroge n measurement (mass/volume)on 11-23-2021 Urea nitrogen [Mass/Vol] 25 mg/dL 7-18 [facility] Work Phone: Thin prep Papanicolaou smear with manual screeningon 11-23-2021 Thin prep Papanicolaou smear with manual screening 20 U/L 15-37 [facility] Work Phone: Thin prep Papanicolaou smear with manual screening 4 5-15 [facility] Work Phone: Whole blood hemoglobin A1c/t otal hemoglobin ratio (mass fraction)on 11-23-2021 HbA1c (Bld) [Mass fraction] 5.9 % 3.8-5.6 [facility] Work Phone: Comment on above: Normal < 5.7 % Predi abetic 5.7 - 6.4 % Diabetic >or= 6.5 % Please note range changes. Complete Blood Count + Diffe rentialon 05-29-2021 Basophils/100 WBC (Bld) 0.7 % 0.0 - 2.0 [facility] Work Phone: Erythrocyte distribution width (RBC) [Ratio] 13.0 % See Below [facility] Work Phone: Comment on above: Reference Range: 11. 5 - 14.5 Hematocrit (Bld) [Volume fraction] 44.0 % See Below [facility] Work Phone: Comment on above: Reference Range: 36. 0 - 46.0 Hemoglobin (Bld) [Mass/Vol] 13.4 g/dL See Below [facility] Work Phone: Comment on above: Reference Range: 12. 0 - 16.0 Lymphocytes/100 WBC (Bld) 38.8 % See Below [facility] Work Phone: Comment on above: Reference Range: 13. 0 - 44.0 MCHC (RBC) [Mass/Vol] 30.5 g/dL below low threshold See Below [facility] Work Phone: Comment on above: Reference Range: 32. 0 - 36.0 MCV (RBC) [Entitic vol] 102 fL above high threshold 80 - 100 [facility] Work Phone: Monocytes/100 WBC (Bld) 8.4 % 2.0 - 10.0 [facility] Work Phone: Neutrophils/100 WBC (Bld) 49.0 % See Below [facility] Work Phone: Comment on above: Reference Range: 40. 0 - 80.0 Platelets (Bld) [#/Vol] 258 10*3/uL 150 - 450 [facility] Work Phone: RBC (Bld) [#/Vol] 4.33 {x10E12/L} See Below [facility] Work Phone: [phone] Comment on above: Reference Range: 4.0 0 - 5.20 WBC (Bld) [#/Vol] 5.5 10*3/uL 4.4 - 11.3 [facility] Work Phone: [phone] Complete Blood Count + Differential 0.04 {x10E9/L} See Below [facility] Work Phone: Comment on above: Reference Range: 0.0 0 - 0.10 Complete Blood Count + Differential 0.15 {x10E9/L} See Below [facility] Work Phone: Comment on above: Reference Range: 0.0 0 - 0.70 Complete Blood Count + Differential 0.46 {x10E9/L} See Below [facility] Work Phone: Comment on above: Reference Range: 0.1 0 - 1.00 Complete Blood Count + Differential 2.13 {x10E9/L} See Below [facility] Work Phone: Comment on above: Reference Range: 1.2 0 - 4.80 Complete Blood Count + Differential 2.69 {x10E9/L} See Below [facility] Work Phone: Comment on above: Reference Range: 1.2 0 - 7.70 Complete Blood Count + Differential 2.7 % 0.0 - 6.0 [facility] Work Phone: Complete Blood Count + Differential 0.4 % 0.0 - 0.9 [facility] Work Phone: Comment on above: Immature Granulocyte Count (IG) includes promyelocytes, myelocytes and metamyelocytes but does not include bands. Percent differential counts (%) should be interpreted in the context of the absolute cell counts (cells/L). Complete Blood Count + Differential 0.0 {/100_WBC} 0.0-0.0 [facility] Work Phone: Laboratory - Chemistry and C hemistry - challengeon 05-29-2021 Albumin BCP dye [Mass/Vol] 4.5 g/dL 3.4 - 5.0 [facility] Work Phone: ALP [Catalytic activity/Vol] 104 U/L 33 - 136 [facility] Work Phone: ALT With P-5'-P [Catalytic activity/Vol] 23 U/L 7 - 45 [facility] Work Phone: Comment on above: Patients treated wit h Sulfasalazine may generate falsely decreased results for ALT. Anion gap [Moles/Vol] 11 mmol/L 10 - 20 [facility] Work Phone: AST With P-5'-P [Catalytic activity/Vol] 22 U/L 9 - 39 [facility] Work Phone: Bilirubin [Mass/Vol] 0.5 mg/dL 0.0 - 1.2 [facility] Work Phone: Calcium [Mass/Vol] 9.7 mg/dL 8.6 - 10.6 [facility] Work Phone: Chloride [Moles/Vol] 103 mmol/L 98 - 107 [facility] Work Phone: CO2 [Moles/Vol] 30 mmol/L 21 - 32 [facility] Work Phone: Creatinine [Mass/Vol] 0.78 mg/dL See Below [facility] Work Phone: Comment on above: Reference Range: 0.5 0 - 1.05 Glucose [Mass/Vol] 127 mg/dL above high threshold 74 - 99 [facility] Work Phone: LDH [Catalytic activity/Vol] 155 U/L 84 - 246 [facility] Work Phone: Potassium [Moles/Vol] 4.1 mmol/L 3.5 - 5.3 [facility] Work Phone: Protein [Mass/Vol] 6.4 g/dL 6.4 - 8.2 [facility] Work Phone: Sodium [Moles/Vol] 140 mmol/L 136 - 145 [facility] Work Phone: Urea nitrogen [Mass/Vol] 21 mg/dL 6 - 23 [facility] Work Phone: No Panel Informationon 05-29 84 {mL/min/1.73m2} >90 [facility] Work Phone: Comment on above: CALCULATIONS OF ANJALI MATED GFR ARE PERFORMED USING THE 2020 CKD-EPI STUDY REFIT EQUATION WITHOUT THE RACE VARIABLE FOR THE IDMS-TRACEABLE CREATININE METHODS.https://jasn.asnjournals.org/content/early/A SN.8541193696 No Panel Informationon 03-29 [email or web address] [facility] Work Phone: Coronavirus 2019 RNA by PCR, Screening Asymptomticon 03-27-2021 Coronavirus 2019 RNA by PCR, Screening Asymptomtic Not detected Normal See Below -[facility] Work Phone: Comment on above: SOURCE: Nasal, Nasop haryngealReference Range: Not Detected.This assay is designed to detect the N, ORF1ab and/or S genes of SARS-CoV-2 via nucleic acid amplification. A Negative (NOT DETECTED) result does not preclude 2019-nCoV infection since the adequacy of sample collection and/or low viral burden may result in presence of viral nucleic acids below the clinical sensitivity of this test method. Negative (NOT DETECTED) result should not be used as the sole basis for treatment or other patient management decisions. Rather negative results should be combined with clinical observations, patient history, and epidemiological information to make patient management decisions.Fact sheet for providers: https://www.fda.gov/media/283824/downloadFact sheet for patients: https://www.fda.gov/media/026042/downloadThis test has received FDA Emergency Use Authorization (EUA) and has been verified by [facility] ([facility]). This test is only authorized for the duration of time that circumstances exist to justify the authorization of the emergency use of in vitro diagnostic tests for the detection of SARS-CoV-2 virus and/or diagnosis of COVID-19 infection under section 564(b)(1) of the Act, 21 U.S.C. 360bbb-3(b)(1), unless the authorization is terminated or revoked sooner. [facility] is certified under CLIA-88 as qualified to perform high complexity testing. Testing is performed in the [facility] laboratories located at [address] [place] [address] Cardiac Scoring FINAL REPORT Interpreted by: SANTA VALDEZ KUMAR, MD 02/20/21 08:21 Patient Name: URBANO MUSA STUDY: CT CARDIAC SCORING; 02/13/2021 1:26 pm INDICATION: screen. COMPARISON: None. ACCESSION NUMBER(S): [id number] ORDERING CLINICI Normal [facility] Work Phone: CT CARDIAC SCORINGon 01-21 CT CARDIAC SCORING Patient Name: URBANO MUSA STUDY: CT CARDIAC SCORING; 02/13/2021 1:26 pm INDICATION: screen. COMPARISON: None. ACCESSION NUMBER(S): [id number] ORDERING CLINICIAN: TAMARA HA TECHNIQUE: Using prospective ECG gating, CT scan of the coronary arteries was performed without intravenous contrast. Coronary calcium scoring was performed according to the method of Agatston. FINDINGS: The score and distribution of calcium in the coronary arteries is as follows: LM 0 LAD 92.51 LCx 0 RCA 0 Total 92.51 The visualized mid/lower ascending thoracic aorta measures 3.2 cm in diameter. The heart is normal in size. No pericardial effusion is present. No gross evidence of mediastinal or hilar lymphadenopathy or masses is identified. The visualized segments of the lungs are normally expanded. The visualized subdiaphragmatic structures appear intact. IMPRESSION: 1. Coronary artery calcium score of 92.51*. *Coronary artery calcium scoring may be helpful in predicting the risk for future coronary heart disease events. According to the [place] [employer] Clinical Expert Consensus Task Force, such testing provides important prognostic information in patients with more than one coronary heart disease risk factor. The coronary artery calcium score correlates with the annual risk of a non-fatal myocardial infarction or coronary heart disease . Coronary artery score Annual Risk 0-99 0.4% 100-399 1.3% >400 2.4% These three breakpoints correspond to lower, intermediate and high risk states for future coronary events. Such information should be used, along with appropriate clinical judgment, to make decisions regarding the intensity of risk factor management strategies to treat blood lipids and to modify other non-lipid coronary risk factors. Reference: Decherd P et al. Circulation. 2007; 115:402-426 Electronically signed by: SANTA VALDEZ MD [facility] Hemoglobin A1Con 02-01-2021 Glucose [Mass/Vol] 128 mg/dL -[facility] [place] Work Phone: HbA1c (Bld) [Mass fraction] 6.1 % Abnormal [facility] Work Phone: Comment on above: Diagnosis of Diabete s-Adults Non-Diabetic: < or = 5.6% Increased risk for developing diabetes: 5.7-6.4% Diagnostic of diabetes: > or = 6.5%. Monitoring of Diabetes Age (y) Therapeutic Goal (%) Adults: >18 <7.0 Pediatrics: 13-18 <7.5 7-12 <8.0 0- 6 7.5-8.5 [place] [employer]. Diabetes Care 33(S1), Apr 2009. Lipid Panelon 02-01-2021 Cholesterol [Mass/Vol] 187 mg/dL 0 - 199 [facility] Work Phone: Comment on above: . AGE DESIRABLE BORD LYNDSAY HIGH HIGH 0-19 Y 0 - 169 170 - 199 >/= 200 20-24 Y 0 - 189 190 - 224 >/= 225 >24 Y 0 - 199 200 - 239 >/= 240 All ranges are based on fasting samples. Specific therapeutic targets will vary based on patient-specific cardiac risk.. Pediatric guidelines reference:Pediatrics 2011, 128(S5). Adult guidelines reference: NCEP ATPIII Guidelines, NEGAR 2001, 258:2486-97. Venipuncture immediately after or during the administration of Metamizole may lead to falsely low results. Testing should be performed immediately prior to Metamizole dosing. Cholesterol in HDL [Mass/Vol] 65.0 mg/dL [facility] Work Phone: Comment on above: . AGE VERY LOW LOW N ORMAL HIGH 0-19 Y < 35 < 40 40-45 ---- 20-24 Y ---- < 40 >45 ---- >24 Y ---- < 40 40-60 >60. Cholesterol in LDL [Mass/Vol] 106 mg/dL above high threshold 0 - 99 [facility] Work Phone: Comment on above: . NEAR BORD AGE KASIA RABLE OPTIMAL HIGH HIGH VERY HIGH 0-19 Y 0 - 109 --- 110-129 >/= 130 ---- 20-24 Y 0 - 119 --- 120-159 >/= 160 ---- >24 Y 0 - 99 100-129 130-159 160-189 >/=190. Cholesterol.total/Chol esterol in HDL [Mass ratio] 2.9 {ratio} [facility] Work Phone: Comment on above: REF VALUESDESIRABLE < 3.4HIGH RISK > 5.0 Triglyceride [Mass/Vol] 82 mg/dL 0 - 149 [facility] Work Phone: Comment on above: . AGE DESIRABLE BORD LYNDSAY HIGH HIGH VERY HIGH 0 D-90 D 19 - 174 ---- ---- ----91 D- 9 Y 0 - 74 75 - 99 >/= 100 ---- 10-19 Y 0 - 89 90 - 129 >/= 130 ---- 20-24 Y 0 - 114 115 - 149 >/= 150 ---- >24 Y 0 - 149 150 - 199 200- 499 >/= 500. Venipuncture immediately after or during the administration of Metamizole may lead to falsely low results. Testing should be performed immediately prior to Metamizole dosing. Lipid Panel 16 mg/dL 0 - 40 [facility] Work Phone: Falls Risk Screeningon 01-30 Fall risk assessment b) One or more fall s in the last year [facility] Work Phone: Tobacco use status CPHS b) No [facility] [employer] Phone: Complete Blood Count + Diffe rentialon 06-06-2020 Basophils (Bld) [#/Vol] 0.06 {x10E9/L} See Below [facility] Work Phone: Comment on above: Reference Range: 0.0 0 - 0.10 Basophils/100 WBC (Bld) 1.1 % 0.0 - 2.0 [facility] Work Phone: Eosinophils (Bld) [#/Vol] 0.11 {x10E9/L} See Below [facility] Work Phone: Comment on above: Reference Range: 0.0 0 - 0.70 Eosinophils/100 WBC (Bld) 2.1 % 0.0 - 6.0 [facility] Work Phone: Erythrocyte distribution width (RBC) [Ratio] 12.8 % See Below [facility] Work Phone: Comment on above: Reference Range: 11. 5 - 14.5 Hematocrit (Bld) [Volume fraction] 42.4 % See Below [facility] Work Phone: [phone] Comment on above: Reference Range: 36. 0 - 46.0 Hemoglobin (Bld) [Mass/Vol] 13.8 g/dL See Below [facility] Work Phone: [phone] Comment on above: Reference Range: 12. 0 - 16.0 Lymphocytes (Bld) [#/Vol] 2.07 {x10E9/L} See Below [facility] Work Phone: [phone] Comment on above: Reference Range: 1.2 0 - 4.80 Lymphocytes/100 WBC (Bld) 39.3 % See Below [facility] Work Phone: [phone] Comment on above: Reference Range: 13. 0 - 44.0 MCHC (RBC) [Mass/Vol] 32.5 g/dL See Below [facility] Work Phone: Comment on above: Reference Range: 32. 0 - 36.0 MCV (RBC) [Entitic vol] 96 fL 80 - 100 [facility] Work Phone: [phone] Monocytes (Bld) [#/Vol] 0.52 {x10E9/L} See Below [facility] Work Phone: [phone] Comment on above: Reference Range: 0.1 0 - 1.00 Monocytes/100 WBC (Bld) 9.9 % 2.0 - 10.0 [facility] Work Phone: [phone] Neutrophils (Bld) [#/Vol] 2.50 {x10E9/L} See Below [facility] Work Phone: [phone] Comment on above: Reference Range: 1.2 0 - 7.70 Neutrophils/100 WBC (Bld) 47.4 % See Below [facility] Work Phone: Comment on above: Reference Range: 40. 0 - 80.0 Platelets (Bld) [#/Vol] 297 {x10E9/L} 150 - 450 [facility] Work Phone: RBC (Bld) [#/Vol] 4.40 {x10E12/L} See Below [facility] Work Phone: Comment on above: Reference Range: 4.0 0 - 5.20 WBC (Bld) [#/Vol] 5.3 {x10E9/L} 4.4 - 11.3 [facility] Work Phone: WBC (Bld) [#/Vol] 0.0 {/100_WBC} 0.0-0.0 [facility] Work Phone: Complete Blood Count + Differential 0.2 % 0.0 - 0.9 [facility] Work Phone: Comment on above: Immature Granulocyte Count (IG) includes promyelocytes, myelocytes and metamyelocytes but does not include bands. Percent differential counts (%) should be interpreted in the context of the absolute cell counts (cells/L). Metabolic Panelon 06-06-2020 ALP [Catalytic activity/Vol] 94 U/L 33 - 136 [facility] Work Phone: Anion gap [Moles/Vol] 13 mmol/L 10 - 20 [facility] Work Phone: Bilirubin [Mass/Vol] 0.4 mg/dL 0.0 - 1.2 [facility] [employer] [facility] Work Phone: Calcium [Mass/Vol] 9.9 mg/dL 8.6 - 10.6 [facility] [place] [facility] Work Phone: Chloride [Moles/Vol] 103 mmol/L 98 - 107 [facility] Work Phone: CO2 [Moles/Vol] 30 mmol/L 21 - 32 -[facility] Work Phone: Creatinine [Mass/Vol] 0.89 mg/dL See Below - [facility] Work Phone: Comment on above: Reference Range: 0.5 0 - 1.05 Glucose [Mass/Vol] 111 mg/dL above high threshold 74 - 99 [facility] Work Phone: LDH [Catalytic activity/Vol] 140 U/L 84 - 246 -[facility] Work Phone: Potassium [Moles/Vol] 3.8 mmol/L 3.5 - 5.3 - [facility] Work Phone: Protein [Mass/Vol] 6.8 g/dL 6.4 - 8.2 [facility] Work Phone: Sodium [Moles/Vol] 142 mmol/L 136 - 145 -[facility] Work Phone: Urea nitrogen [Mass/Vol] 23 mg/dL 6 - 23 -[facility] Work Phone: Otheron 06-06-2020 Albumin BCP dye [Mass/Vol] 4.7 g/dL 3.4 - 5.0 -[facility] Work Phone: ALT With P-5'-P [Catalytic activity/Vol] 12 U/L 7 - 45 -[facility] Work Phone: Comment on above: Patients treated wit h Sulfasalazine may generate falsely decreased results for ALT. AST With P-5'-P [Catalytic activity/Vol] 15 U/L 9 - 39 -[facility] Work Phone: >60 >60 -[facility] Work Phone: Comment on above: CALCULATIONS OF ANJALI MATED GFR ARE PERFORMED USING THE MDRD STUDY EQUATION FOR THE IDMS-TRACEABLE CREATININE METHODS. CLIN CHEM 2007;53:766-72 Canceled [facility] Work Phone: Comment on above: SOURCE: TEST FLOW CYTOMETRY TEST WAS CANCELLED, 06/07/2020 11:36 DUPLICATE ORDERSee [id number]. Parathormone Intact, Serumon 06-06-2020 Parathyrin.intact [Mass/Vol] 49.8 pg/mL See Below [facility] Work Phone: Comment on above: Reference Range: 18. 5 - 88.0 Complete Blood Count + Diffe rentialon 06-01-2020 Basophils (Bld) [#/Vol] 0.06 {x10E9/L} See Below [facility] Work Phone: Comment on above: Reference Range: 0.0 0 - 0.10 Basophils/100 WBC (Bld) 1.0 % 0.0 - 2.0 [facility] Work Phone: Eosinophils (Bld) [#/Vol] 0.11 {x10E9/L} See Below [facility] Work Phone: Comment on above: Reference Range: 0.0 0 - 0.70 Eosinophils/100 WBC (Bld) 1.9 % 0.0 - 6.0 [facility] Work Phone: Erythrocyte distribution width (RBC) [Ratio] 12.9 % See Below [facility] Work Phone: Comment on above: Reference Range: 11. 5 - 14.5 Hematocrit (Bld) [Volume fraction] 48.2 % above high threshold See Below [facility] Work Phone: Comment on above: Reference Range: 36. 0 - 46.0 Hemoglobin (Bld) [Mass/Vol] 15.2 g/dL See Below [facility] Work Phone: Comment on above: Reference Range: 12. 0 - 16.0 Lymphocytes (Bld) [#/Vol] 1.86 {x10E9/L} See Below [facility] Work Phone: [phone] Comment on above: Reference Range: 1.2 0 - 4.80 Lymphocytes/100 WBC (Bld) 32.1 % See Below [facility] Work Phone: [phone] Comment on above: Reference Range: 13. 0 - 44.0 MCHC (RBC) [Mass/Vol] 31.5 g/dL below low threshold See Below [facility]ILITY[facility] Work Phone: [phone] Comment on above: Reference Range: 32. 0 - 36.0 MCV (RBC) [Entitic vol] 98 fL 80 - 100 [facility] Work Phone: [phone] Monocytes (Bld) [#/Vol] 0.47 {x10E9/L} See Below [facility] Work Phone: [phone] Comment on above: Reference Range: 0.1 0 - 1.00 Monocytes/100 WBC (Bld) 8.1 % 2.0 - 10.0 [facility] Work Phone: [phone] Neutrophils (Bld) [#/Vol] 3.29 {x10E9/L} See Below [facility] Work Phone: [phone] Comment on above: Reference Range: 1.2 0 - 7.70 Neutrophils/100 WBC (Bld) 56.7 % See Below [facility] Work Phone: [phone] Comment on above: Reference Range: 40. 0 - 80.0 Platelets (Bld) [#/Vol] 305 {x10E9/L} 150 - 450 [facility] Work Phone: [phone] RBC (Bld) [#/Vol] 4.92 {x10E12/L} See Below [facility] Work Phone: [phone] Comment on above: Reference Range: 4.0 0 - 5.20 WBC (Bld) [#/Vol] 0.0 {/100_WBC} 0.0-0.0 [facility] Work Phone: WBC (Bld) [#/Vol] 5.8 {x10E9/L} 4.4 - 11.3 [facility] [place] [facility] Work Phone: Complete Blood Count + Differential 0.2 % 0.0 - 0.9 [facility] Work Phone: Comment on above: Immature Granulocyte Count (IG) includes promyelocytes, myelocytes and metamyelocytes but does not include bands. Percent differential counts (%) should be interpreted in the context of the absolute cell counts (cells/L). Metabolic Panelon 06-01-2020 ALP [Catalytic activity/Vol] 103 U/L 33 - 136 [facility] Work Phone: Anion gap [Moles/Vol] 12 mmol/L 10 - 20 [facility] Work Phone: Bilirubin [Mass/Vol] 0.4 mg/dL 0.0 - 1.2 [facility] Work Phone: Calcium [Mass/Vol] 11.2 mg/dL above high threshold 8.6 - 10.6 [facility] Work Phone: Chloride [Moles/Vol] 101 mmol/L 98 - 107 [facility] Work Phone: CO2 [Moles/Vol] 31 mmol/L 21 - 32 [facility] Work Phone: Creatinine [Mass/Vol] 0.66 mg/dL See Below [facility] Work Phone: Comment on above: Reference Range: 0.5 0 - 1.05 Glucose [Mass/Vol] 123 mg/dL above high threshold 74 - 99 [facility] Work Phone: LDH [Catalytic activity/Vol] 150 U/L 84 - 246 [facility] Work Phone: Potassium [Moles/Vol] 4.0 mmol/L 3.5 - 5.3 - Medical [facility] Work Phone: Protein [Mass/Vol] 7.5 g/dL 6.4 - 8.2 [facility] Work Phone: Sodium [Moles/Vol] 140 mmol/L 136 - 145 [facility] Work Phone: Urea nitrogen [Mass/Vol] 22 mg/dL 6 - 23 [facility] Work Phone: Otheron 06-01-2020 Albumin BCP dye [Mass/Vol] 5.0 g/dL 3.4 - 5.0 [facility] Work Phone: ALT With P-5'-P [Catalytic activity/Vol] 14 U/L 7 - 45 [facility] Work Phone: Comment on above: Patients treated wit h Sulfasalazine may generate falsely decreased results for ALT. AST With P-5'-P [Catalytic activity/Vol] 18 U/L 9 - 39 [facility] Work Phone: >60 >60 [facility] Work Phone: Comment on above: CALCULATIONS OF ANJALI MATED GFR ARE PERFORMED USING THE MDRD STUDY EQUATION FOR THE IDMS-TRACEABLE CREATININE METHODS. CLIN CHEM 2007;53:766-72 Basic Metabolic Panelon 10- Calcium [Mass/Vol] 10.0 mg/dL Normal 8.5-10.6 [facility] Chloride [Moles/Vol] 102 mmol/L Normal 98-107 [facility] CO2 [Moles/Vol] 30 mmol/L Normal 21-32 [facility] Creatinine [Mass/Vol] 0.75 mg/dL Normal 0.55-1.02 [facility] Glucose [Mass/Vol] 94 mg/dL Normal 70-99 [facility] Potassium [Moles/Vol] 4.4 mmol/L Normal 3.5-5.1 [facility] Sodium [Moles/Vol] 141 mmol/L Normal 136-145 [facility] Urea nitrogen (BldV) [Mass/Vol] 18 mg/dL Normal 7.0-18.0 [facility] Urea nitrogen/Creatinine [Mass ratio] 24 mg/mg Normal [facility] CBC with Differentialon 10- 4-2020 Basophils (Bld) [#/Vol] 0.0 thou/mcL Normal 0.0-0.2 [facility] Basophils/100 WBC (Bld) 0.8 % Normal 0-3 [facility] Differential cell count method Nom (Bld) AUTOMATED DIFFERENTIAL Normal Mo unt [facility] Eosinophils (Bld) [#/Vol] 0.1 thou/mcL Normal 0.0-0.4 [facility] Eosinophils/100 WBC (Bld) 2.5 % Normal 0-7 [facility] Erythrocyte distribution width (RBC) [Entitic vol] 13.7 % Normal 11.7-15.0 [facility] Hematocrit (Bld) [Volume fraction] 42.8 % Normal 34.0-50.0 [facility] Hemoglobin (Bld) [Mass/Vol] 14.1 g/dL Normal 11.5-17.0 [facility] Lymphocytes (Bld) [#/Vol] 2.0 thou/mcL Normal 0.7-4.5 [facility] Lymphocytes/100 WBC (Bld) 40.2 % Normal 14-46 [facility] MCH (RBC) [Entitic mass] 31.7 Picograms Normal 27.0-34.0 [facility] MCHC (RBC) [Mass/Vol] 33.0 g/dL Normal 32.0-36.0 Vira [facility] MCV (RBC) [Entitic vol] 96.1 fL Normal 80-98 [facility] Monocytes (Bld) [#/Vol] 0.3 thou/mcL Normal 0.1-1.0 [facility] Monocytes/100 WBC (Bld) 6.7 % Normal 4-13 [facility] Neutrophils (Bld) [#/Vol] 2.4 thou/mcL Normal 1.5-7.8 [facility] Neutrophils/100 WBC (Bld) 49.8 % Normal 40-74 [facility] Platelet mean volume (Bld) [Entitic vol] 8.6 fL Normal 7.5-11.2 [facility] Platelets (Bld) [#/Vol] 269 thou/mcL Normal 140-415 [facility] RBC (Bld) [#/Vol] 4.45 x(10)6/mcL Normal 3.80-5.60 Mo [facility] WBC (Bld) [#/Vol] 4.9 thou/mcL Normal 4.0-10.5 [facility] Otheron 12-25-2019 XR Hand 3 views Please click on the link to view the study images Normal [facility] Work Phone: XR Hand 3 views Interpreted by: IGNACIA THEODORE12/26/19 15:39MRN: [id number] Name: URBANO MUSA STUDY:HAND MIN 3 VIEWS INDICATION:pain. COMPARISON:None ORDERING CLINICIAN:TAMARA HA FINDINGS:Mild osteoarthritis distal interphalangeal joints and 1stcarpometacarpal. No fracture seen. No erosive changes. IMPRESSION:Mild osteoarthritis right hand.Electronically signed by: CHRISTINE THEODORE 12/26/19 15:39 Normal [facility] Work Phone: Anti Nuclear Antibody (refle xes DARIAN panel if Positive)on 12-24-2019 Nuclear Ab Hep2 substrate Ql (S) Negative NEGATIVE [facility] Work Phone: C Reactive Protein, Serumon 12-24-2019 CRP [Mass/Vol] 0.33 mg/dL [facility] Work Phone: Comment on above: REF VALUE< 1.00 Citrulline Antibodyon 2019 Cyclic citrullinated peptide IgG Qn <1 [facility] Work Phone: Comment on above: THE TEST FOR ANTIBOD IES SPECIFIC FOR CYCLICCITRULLINATED PEPTIDE (CCP) HAS SHOWN TO BEVALUABLE IN THE DIAGNOSIS OF RHEUMATOIDARTHRITIS. THE DIAGNOSTIC VALUE OFANTIBODIES TO CCP IN JUVENILE RHEUMATOIDARTHRITIS PATIENTS HAS NOT BEEN DETERMINED.ANTIBODIES TO CENTROMERE OR SS-A AND MYELOMA IGG MAY BE REACTIVE IN THIS ASSAY. REF VALUES NEGATIVE < 3 U/ML POSITIVE >=3 U/ML Rheumatoid Factor, Serum or Plasmaon 12-24-2019 Rheumatoid factor Nephelometry Qn (S) <10 0 - 15 [employer] [facility] Work Phone: Sedimentation Rate, Erythroc yteon 12-24-2019 ESR (Bld) [Velocity] 6 mm/h 0 - 30 [facility] Work Phone: Vitamin B12, Serumon 020 Cobalamin (Vitamin B12) [Mass/Vol] 217 pg/mL 211 - 911 [facility] Work Phone: Otheron 11-28-2019 XR Ankle 3 views Interpreted by: DANIEL11/28/19 10:16MRN: [id number] Name: URBANO MUSA STUDY:ANKLE, COMPLETE, MIN 3 VIEWS; Right; 11/28/2019 9:16 am INDICATION:right ankle pain. COMPARISON:None. ORDERING CLINICIAN:TAMARA LANDAVERDE FINDINGS:Three views of the right ankle. Normal bone mineralization. Novisible acute fractures or dislocations. The joint spaces aremaintained. No periosteal reaction or cortical erosive changes. Thesoft tissues appear unremarkable. Moderate size plantar calcanealspur. IMPRESSION:No visible acute fractures or dislocations. Electronically signed by: DANIEL 11/28/19 10:16 Normal -[employer] [facility] Work Phone: Comment on above: Ordering Provider: Bing LANDAVERDE [id number] XR KNEE LEFT 2 VIEWS ([address] RD)on 02-17-2018 X-ray of the left kn ee lateral merchant standing film shows end-stage medial compartment joint narrowing with [id number] deformity medial compartment osteophytes are noted Invalid Interpretation Code [facility] Auto Diffon 10-10-2017 Basophils #/vol (Bld) 0.1 E3/mcL Normal 0.0-0.2 [facility] Comment on above: Order Comment: Order Added by Discern Expert. Performed By: #### 2 [id number] #### [facility]BE RemHemo [address] [place] [address] Basophils/100 WBC (Bld) 1.3 % Normal 0.0-2.0 [facility] Comment on above: Order Comment: Order Added by Discern Expert. Performed By: #### 2 [id number] #### [employer]BE RemHemo [address] [place] [address] Eos Absolute 0.2 E3/mcL Normal 0.0-0.7 [facility] Comment on above: Order Comment: Order Added by Discern Expert. Performed By: #### 2 [id number] #### [employer] [address] [place] [address] Eosinophils/100 WBC (Bld) 4.7 % Normal 0.0-11.0 [facility] Comment on above: Order Comment: Order Added by Discern Expert. Performed By: #### 2 [id number] #### [employer] [address] [place] [address] Lymphocytes #/vol (Bld) 2.1 E3/mcL Normal 1.2-3.4 [facility] Comment on above: Order Comment: Order Added by Discern Expert. Performed By: #### 2 [id number] #### KOBE ValenzuelaHemo [address] [place] [address] Lymphocytes/100 WBC (Bld) 39.6 % Normal 20.0-55.0 [facility] Comment on above: Order Comment: Order Added by Discern Expert. Performed By: #### 2 [id number] #### [employer] [address] [place] [address] [place] Absolute 0.4 E3/mcL Normal 0.0-0.7 [facility] Comment on above: Order Comment: Order Added by Discern Expert. Performed By: #### 2 [id number] #### [employer] [address] [place] [address] Monocytes/100 WBC (Bld) 7.8 % Normal 0.0-10.0 [facility] Comment on above: Order Comment: Order Added by Discern Expert. Performed By: #### 2 [id number] #### [employer] [address] [place] [address] Neutro Absolute 2.5 E3/mcL Normal 1.4-6.5 [facility] Comment on above: Order Comment: Order Added by Discern Expert. Performed By: #### 2 [id number] #### KOBE ValenzuelaHemo [address] [place] [address] Neutro Auto 46.6 % Normal 37.0-75.0 [facility] Comment on above: Order Comment: Order Added by Discern Expert. Performed By: #### 2 [id number] #### KOBE ValenzuelaHemo [address] [place] [id number] CBC w/ Auto Diffon 8 Erythrocyte distribution width Ratio (RBC) 13.8 % Normal 11.5-14.5 [facility] Comment on above: Performed By: #### 2 [id number] #### KOBE ValenzuelaHemo [facility] [place] [address] Hematocrit Volume Fraction (Bld) 42.8 % Normal 36.0-48.0 [facility] Comment on above: Performed By: #### 2 [id number] #### KOBE ValenzuelaHemo [address] [place] [id number] Hemoglobin mass conc (Bld) 14.1 g/dL Normal 12.0-16.0 [facility] Comment on above: Performed By: #### 2 [id number] #### KOBE ValenzuelaHemo [address] [place] [id number] MCH Entitic mass (RBC) 31.4 pg High 27.0-31.0 [facility] Comment on above: Performed By: #### 2 [id number] #### KOBE Rem[employer] [address] [place] [id number] MCHC mass conc (RBC) 32.8 g/dL Low 33.0-37.0 [facility] Comment on above: Performed By: #### 2 [id number] #### KOBE Rem[employer]emo [address] [place] [address] MCV Entitic volume (RBC) 95.6 fL Normal 78.0-100.0 [facility] Comment on above: Performed By: #### 2 [id number] #### [employer]BE Rem[employer] [address] [place] [id number] Platelet mean volume Entitic volume (Bld) 8.0 fL Normal 7.4-11.0 [facility] Comment on above: Performed By: #### 2 [id number] #### KOBE ValenzuelaHemo [address] [place] [address] Platelets #/vol (Bld) 273 E3/mcL Normal 130-400 [facility] Comment on above: Performed By: #### 2 [id number] #### KOBE ValenzuelaHemo [address] [place] [address] RBC #/vol (Bld) 4.48 E6/mcL Normal 3.90-5.40 [facility] Comment on above: Performed By: #### 2 [id number] #### KOBE ValenzuelaHemo [address] [place] [address] WBC #/vol (Bld) 5.3 E3/mcL Normal 3.6-11.0 [facility] Comment on above: Performed By: #### 2 [id number] #### KOBE ValenzuelaHemo [address] [place], [place] [id number] CMPon 10-10-2017 Albumin mass conc 4.0 g/dL Normal 3.2-5.0 [facility] Comment on above: Performed By: #### 2 [id number] #### KOBEMax [place]Jeff[place] [id number] Albumin/Globulin mass ratio 1.5 {ratio} Normal 1.1-1.9 [facility] Comment on above: Performed By: #### 2 [id number] #### KOBE ValenzuelaChem [address] [place] [address] Alk Phos 80 Int._Unit/L Normal 42-121 [facility] Comment on above: Performed By: #### 2 [id number] #### KOBE ValenzuelaChem [facility] [place] [address] ALT enzyme act/vol 16 Int._Unit/L Normal 10-40 [facility] Comment on above: Performed By: #### 2 [id number] #### KOBE ValenzuelaChem [facility] [place] [address] AST enzyme act/vol 21 Int._Unit/L Normal 10-42 [facility] Comment on above: Performed By: #### 2 [id number] #### KOBE RemChem [address] [place] [address] Bili Total 0.6 mg/dL Normal 0.2-1.0 [facility] Comment on above: Performed By: #### 2 [id number] #### KOBE [employer] [address] [place] [address] Creatinine mass conc 0.7 mg/dL Normal 0.6-1.3 [facility] Comment on above: Performed By: #### 2 [id number] #### [employer]BE [employer] [address] [place] [address] Globulin mass conc (S) 2.6 g/dL Normal 2.0-4.0 [facility] Comment on above: Performed By: #### 2 [id number] #### [employer]BE [employer] [address] [place] [address] Protein mass conc 6.6 g/dL Normal 6.4-8.3 [facility] Comment on above: Performed By: #### 2 [id number] #### [facility]BE [employer] [address] [place] [address] Urea nitrogen mass conc 23 mg/dL High 7-18 [facility] Comment on above: Performed By: #### 2 [id number] #### [employer] [employer] [address] [place] [address] Urea nitrogen/Creatinine mass ratio 32.9 ratio High 5.4-30.0 [facility] Comment on above: Performed By: #### 2 [id number] #### [employer] [employer] [address] [place] [address] Calcium mass conc 8.9 mg/dL Normal 8.4-10.2 [facility] Comment on above: Performed By: #### 2 [id number] #### [employer]BE [employer] [address] [place] [address] Chloride molar conc 101 mmol/L Normal 98-[address] [facility] Comment on above: Performed By: #### 2 [id number] #### [employer]BE [employer] [address] [place] [address] CO2 molar conc 28.0 mmol/L Normal 24.0-30.0 [facility] Comment on above: Performed By: #### 2 [id number] #### [employer]BE [employer] [address] [place] [address] Glucose mass conc 107 mg/dL High 70-99 [facility] Comment on above: Performed By: #### 2 [id number] #### [employer] [employer] [address] [place] [address] Potassium molar conc 3.6 mmol/L Normal 3.5-5.1 [facility] Comment on above: Performed By: #### 2 [id number] #### [employer]BE [employer] [address] [place] [address] Sodium molar conc 135 mmol/L Low 136-145 [facility] Comment on above: Performed By: #### 2 [id number] #### KOBE RemChem [facility] [place] [id number] QgnO2oll 10-10-2017 Hemoglobin A1c/Hemoglobin.total mass fraction (Bld) 5.8 % Normal 4.0-6.3 [facility] Comment on above: Performed By: #### 3 [id number] #### KOBE Chemistry Manual Subsection [address] [place] [address] TSHon 10-10-2017 Thyrotropin Qn 3.24 mIU/m Normal 0.30-5.60 [facility] Comment on above: Performed By: #### 2 [id number] #### KOBE RemChem [facility] [place] [address] eGFRon 10-10-2017 GFR/1.73 sq M predicted among non-blacks MDRD vol rate/area (S/P/Bld) mL/min/{1.73_m2} Normal [facility] Comment on above: Order Comment: Order added by Discern Expert. Performed By: #### 1 [id number] #### [facility]BE [employer] [address] [place] [id number] XR Knee Right 4+VWS (Note in Comments)on 09-09-2017 INR in blood by coagulation X-ray of the right knee 4 views standing AP 45 PA standing lateral merchant film obtained due to pain reveals end-stage medial joint narrowing with acquired varus deformity osteophytes in the medial compartment mild patellofemoral joint narrowing is noted Invalid Interpretation Code [facility] Vital Signs Date Time Vital Sign Value Performing Clinician Facility 12-22-2024 09:47-0400 Body height 154.6 cm Lisa Mckeon MD PhD Work Phone: [facility] 12-22-2024 09:47-0400 Body mass index (BMI) [Ratio] 27.32 kg/m2 Lisa Mckeon MD PhD Work Phone: [facility] 12-22-2024 09:47-0400 Body temperature 97.2 [degF] Lisa Mckeon MD PhD Work Phone: [facility] 12-22-2024 09:47-0400 Body weight 65.3 kg Lisa Mckeon MD PhD Work Phone: [facility] 12-22-2024 09:47-0400 Diastolic blood pressure 83 mm[Hg] Lisa Mckeon MD PhD Work Phone: [facility] 12-22-2024 09:47-0400 Heart rate 68 /min Lisa Mckeon MD PhD Work Phone: [facility] 12-22-2024 09:47-0400 Respiratory rate 12 /min Lisa Mckeon MD PhD Work Phone: [facility] 12-22-2024 09:47-0400 SaO2% (BldA) [Mass fraction] 95 % Lisa Mckeon MD PhD Work Phone: [facility] 12-22-2024 09:47-0400 Systolic blood pressure 120 mm[Hg] Lisa Mckeon MD PhD Work Phone: [facility] 11-26-2024 13:58-0400 Body height 154.[address] Tamara Ha MD Work Phone: [facility] 11-26-2024 13:58-0400 Body mass index (BMI) [Ratio] 27.3 kg/m2 Dr. Tamara Ha MD Work Phone: [facility] 11-26-2024 13:58-0400 Body weight 65.[address] Tamara Ha MD Work Phone: [facility] 11-26-2024 13:58-0400 Diastolic blood pressure 84 mm[Hg] Dr. Tamara Ha MD Work Phone: [facility] 11-26-2024 13:58-0400 Heart rate 56 /min Dr. Tamara Ha MD Work Phone: [facility] 11-26-2024 13:58-0400 SaO2% (BldA) [Mass fraction] 97 % Dr. Tamara Ha MD Work Phone: [phone] [place] [address] 11-26-2024 13:58-0400 Systolic blood pressure 151 mm[Hg] Dr. Tamara Ha MD Work Phone: [facility] 09-03-2024 10:08-0400 Body temperature 97.1 [degF] Dr. Tamara Ha MD Work Phone: [facility] 09-03-2024 10:08-0400 Diastolic blood pressure 79 mm[Hg] Dr. Tamara Ha MD Work Phone: [facility] 09-03-2024 10:08-0400 Heart rate 68 /min Dr. Tamara Ha MD Work Phone: [facility] 09-03-2024 10:08-0400 Respiratory rate 14 /min Dr. Tamara Ha MD Work Phone: [facility] 09-03-2024 10:08-0400 SaO2% (BldA) [Mass fraction] 98 % Dr. Tamara Ha MD Work Phone: [facility] 09-03-2024 10:08-0400 Systolic blood pressure 142 mm[Hg] Dr. Tamara Ha MD Work Phone: [facility] 09-03-2024 09:25-0400 Body height 154.[address] Tamara Ha MD Work Phone: [facility] 08-19-2024 09:37-0400 Body mass index (BMI) [Ratio] 26.79 kg/m2 Tamara Ha MD Work Phone: [facility] 08-19-2024 09:37-0400 Body weight 63.96 kg Tamara Ha MD Work Phone: [facility] 08-19-2024 09:37-0400 Diastolic blood pressure 80 mm[Hg] Tamara Ha MD Work Phone: [facility] 08-19-2024 09:37-0400 Heart rate 75 /min Tamara Ha MD Work Phone: [facility] 08-19-2024 09:37-0400 SaO2% (BldA) [Mass fraction] 98 % Tamara Ha MD Work Phone: [facility] 08-19-2024 09:37-0400 Systolic blood pressure 138 mm[Hg] Tamara Ha MD Work Phone: [facility] 08-19-2023 08:46-0400 Body height 154.5 cm Tamara Ha MD Work Phone: [facility] 08-19-2023 08:46-0400 Body mass index (BMI) [Ratio] 27.4 kg/m2 Tamara Ha MD Work Phone: [facility] 08-19-2023 08:46-0400 Body weight 65.41 kg Tamara Ha MD Work Phone: [facility] 08-19-2023 08:46-0400 Diastolic blood pressure 70 mm[Hg] Tamara Ha MD Work Phone: [facility] 08-19-2023 08:46-0400 Heart rate 79 /min Tamara Ha MD Work Phone: [facility] 08-19-2023 08:46-0400 SaO2% (BldA) [Mass fraction] 97 % Tamara Ha MD Work Phone: [facility] 08-19-2023 08:46-0400 Systolic blood pressure 142 mm[Hg] Tamara Ha MD Work Phone: [facility] 08-13-2023 09:48-0400 Body height 154.5 cm Lisa Mckeon MD PhD Work Phone: [facility] 08-13-2023 09:48-0400 Body mass index (BMI) [Ratio] 28.84 kg/m2 Lisa Mckeon MD PhD Work Phone: [facility] 08-13-2023 09:48-0400 Body temperature 98.2 [degF] Lisa Mckeon MD PhD Work Phone: [facility] 08-13-2023 09:48-0400 Body weight 68.85 kg Lisa Mckeon MD PhD Work Phone: [facility] 08-13-2023 09:48-0400 Diastolic blood pressure 88 mm[Hg] Lisa Mckeon MD PhD Work Phone: [facility] 08-13-2023 09:48-0400 Heart rate 73 /min Lisa Mckeon MD PhD Work Phone: [facility] 08-13-2023 09:48-0400 Respiratory rate 16 /min Lisa Mckeon MD PhD Work Phone: [facility] 08-13-2023 09:48-0400 SaO2% (BldA) [Mass fraction] 97 % Lisa Mckeon MD PhD Work Phone: [facility] 08-13-2023 09:48-0400 Systolic blood pressure 145 mm[Hg] Lisa Mckeon MD PhD Work Phone: [facility] 01-04-2023 09:52-0400 Body temperature 96.4 [degF] Dr. Tamara Ha Work Phone: [facility] 01-04-2023 09:52-0400 Diastolic blood pressure 76 mm[Hg] Dr. Tamara Ha Work Phone: [facility] 01-04-2023 09:52-0400 Heart rate 64 /min Dr. Tamara Ha Work Phone: [facility] 01-04-2023 09:52-0400 Respiratory rate 16 /min Dr. Tamara Ha Work Phone: [facility] 01-04-2023 09:52-0400 SaO2% (BldA) [Mass fraction] 99 % Dr. Tamara Ha Work Phone: [facility] 01-04-2023 09:52-0400 Systolic blood pressure 141 mm[Hg] Dr. Tamara Ha Work Phone: [facility] 01-04-2023 09:08-0400 Body height 154.[address] Tamara Ha Work Phone: [facility] 01-04-2023 09:08-0400 Body mass index (BMI) [Ratio] 26.2 kg/m2 Dr. Tamara Ha Work Phone: [facility] 01-04-2023 09:08-0400 Body weight 63.[address] Tamara Ha Work Phone: [facility] 11-22-2022 09:25-0400 Body height 154.[address] Tamara Ha Work Phone: [facility] 11-22-2022 09:25-0400 Body mass index (BMI) [Ratio] 26.6 kg/m2 Dr. Tamara Ha Work Phone: [facility] 11-22-2022 09:25-0400 Body temperature 98.3 [degF] Dr. Tamara Ha Work Phone: [facility] 11-22-2022 09:25-0400 Body weight 64.[address] Tamara Ha Work Phone: [facility] 11-22-2022 09:25-0400 Diastolic blood pressure 76 mm[Hg] Dr. Tamara Ha Work Phone: [facility] 11-22-2022 09:25-0400 Heart rate 70 /min Dr. Tamara Ha Work Phone: [facility] 11-22-2022 09:25-0400 Respiratory rate 16 /min Dr. Tamara Ha Work Phone: [facility] 11-22-2022 09:25-0400 SaO2% (BldA) [Mass fraction] 96 % Dr. Tamara Ha Work Phone: [facility] 11-22-2022 09:25-0400 Systolic blood pressure 118 mm[Hg] Dr. Tamara Ha Work Phone: [facility] 10-25-2022 11:24-0400 Body height 152.4 cm Tamara Ha MD Work Phone: [facility] 10-25-2022 11:24-0400 Body mass index (BMI) [Ratio] 27.56 kg/m2 Tamara Ha MD Work Phone: [facility] 10-25-2022 11:24-0400 Body weight 64 kg Tamara Ha MD Work Phone: [facility] 10-25-2022 11:24-0400 Diastolic blood pressure 70 mm[Hg] Tamara Ha MD Work Phone: [facility] 10-25-2022 11:24-0400 Heart rate 85 /min Tamara Ha MD Work Phone: [facility] 10-25-2022 11:24-0400 SaO2% (BldA) [Mass fraction] 97 % Tamara Ha MD Work Phone: [facility] 10-25-2022 11:24-0400 Systolic blood pressure 110 mm[Hg] Tamara Ha MD Work Phone: [facility] 08-16-2022 08:32-0400 Body height 152.4 cm Tamara Ha MD Work Phone: [facility] 08-16-2022 08:32-0400 Body mass index (BMI) [Ratio] 28.03 kg/m2 Tamara Ha MD Work Phone: [facility] 08-16-2022 08:32-0400 Body weight 65.09 kg Tamara Ha MD Work Phone: [facility] 08-16-2022 08:32-0400 Diastolic blood pressure 78 mm[Hg] Tamara Ha MD Work Phone: [facility] 08-16-2022 08:32-0400 Heart rate 82 /min Tamara Ha MD Work Phone: [facility] 08-16-2022 08:32-0400 SaO2% (BldA) [Mass fraction] 97 % Tamara Ha MD Work Phone: [facility] 08-16-2022 08:32-0400 Systolic blood pressure 130 mm[Hg] Tamara Ha MD Work Phone: [facility] 06-11-2022 08:25-0500 Diastolic blood pressure 89 mm[Hg] Mallory Geneseo DPM Work Phone: [facility] 06-11-2022 08:25-0500 Heart rate 84 /min Mallory Yvette DPM Work Phone: [facility] 06-11-2022 08:25-0500 Systolic blood pressure 158 mm[Hg] Mallory Geneseo DPM Work Phone: [facility] 06-11-2022 08:16-0500 Body temperature 98.4 [degF] Mallory Yvette DPM Work Phone: [facility] 01-31-2022 08:51-0400 Body height 152.4 cm Tamara Ha Work Phone: [facility] Work Phone: 01-31-2022 08:51-0400 Body mass index (BMI) [Ratio] 27.61 kg/m2 Tamara Ha Work Phone: -[facility] Work Phone: 01-31-2022 08:51-0400 Body surface area Derived from formula 1.61 m2 Tamara Ha Work Phone: [facility] Work Phone: 01-31-2022 08:51-0400 Body weight 64.13 kg Tamara Ha Work Phone: [facility] Work Phone: 01-31-2022 08:51-0400 Diastolic blood pressure 80 mm[Hg] Tamara Ha Work Phone: [facility] Work Phone: 01-31-2022 08:51-0400 Heart rate 74 /min Tamara Bueno Leland Work Phone: [facility] Work Phone: 01-31-2022 08:51-0400 SaO2% (BldA) [Mass fraction] 98 % Tamara Ha Work Phone: -[facility] Work Phone: 01-31-2022 08:51-0400 Systolic blood pressure 132 mm[Hg] Tamara Bueno Leland Work Phone: -[facility] Work Phone: 01-03-2022 16:14-0400 Diastolic blood pressure 84 mm[Hg] Dr. Tamara Ha Work Phone: [facility] Work Phone: 01-03-2022 16:14-0400 Heart rate 71 /min Dr. Tamara Ha Work Phone: [facility] Work Phone: 01-03-2022 16:14-0400 Systolic blood pressure 123 mm[Hg] Dr. Tamara Ha Work Phone: [facility] Work Phone: 01-03-2022 15:21-0400 Body height 154.[address] Tamara Ha Work Phone: [facility] Work Phone: 01-03-2022 15:21-0400 Body mass index (BMI) [Ratio] 26.4 kg/m2 Dr. Tamara Ha Work Phone: [facility] Work Phone: 01-03-2022 15:21-0400 Body temperature 96.9 [degF] Dr. Tamara Ha Work Phone: [facility] Work Phone: 01-03-2022 15:21-0400 Body weight 63.[address] Tamara Ha Work Phone: [facility] Work Phone: 01-03-2022 15:21-0400 Respiratory rate 14 /min Dr. Tamara Ha Work Phone: [facility] Work Phone: 01-03-2022 15:21-0400 SaO2% (BldA) [Mass fraction] 96 % Dr. Tamara Ha Work Phone: [facility] Work Phone: 11-23-2021 09:30-0400 Body height 154.[address] Tamara Ha Work Phone: [facility] Work Phone: 11-23-2021 09:30-0400 Body mass index (BMI) [Ratio] 26.6 kg/m2 Dr. Tamara Ha Work Phone: [facility] Work Phone: 11-23-2021 09:30-0400 Body temperature 96.5 [degF] Dr. Tamara Ha Work Phone: [facility] Work Phone: 11-23-2021 09:30-0400 Body weight 64.[address] Tamara Ha Work Phone: [facility] Work Phone: 11-23-2021 09:30-0400 Diastolic blood pressure 80 mm[Hg] Dr. Tamara Ha Work Phone: [facility] Work Phone: 11-23-2021 09:30-0400 Heart rate 87 /min Dr. Tamara Ha Work Phone: [facility] Work Phone: 11-23-2021 09:30-0400 Respiratory rate 18 /min Dr. Tamara Ha Work Phone: [facility] Work Phone: 11-23-2021 09:30-0400 SaO2% (BldA) [Mass fraction] 95 % Dr. Tamara Ha Work Phone: [facility] Work Phone: 11-23-2021 09:30-0400 Systolic blood pressure 137 mm[Hg] Dr. Tamara Ha Work Phone: [facility] Work Phone: 01-30-2021 13:53-0400 Body height 152.4 cm Tamara Ha Work Phone: [facility] Work Phone: 01-30-2021 13:53-0400 Body mass index (BMI) [Ratio] 27.22 kg/m2 Tamara Ha Work Phone: [employer] [facility] Work Phone: 01-30-2021 13:53-0400 Body surface area Derived from formula 1.6 m2 Tamara Ha Work Phone: [employer] Work Phone: 01-30-2021 13:53-0400 Body temperature 97.3 [degF] Tamara Ha Work Phone: [employer] Work Phone: 01-30-2021 13:53-0400 Body weight 63.22 kg Tamara Ha Work Phone: -[facility] Work Phone: 01-30-2021 13:53-0400 Diastolic blood pressure 68 mm[Hg] Tamara Ha Work Phone: [facility] Work Phone: 01-30-2021 13:53-0400 Heart rate 82 /min Tamara Ha Work Phone: [facility] Work Phone: 01-30-2021 13:53-0400 SaO2% (BldA) [Mass fraction] 96 % Tamara Ha Work Phone: [facility] Work Phone: 01-30-2021 13:53-0400 Systolic blood pressure 122 mm[Hg] Tamara Ha Work Phone: [facility] Work Phone: 12-24-2019 13:12-0400 BP Diastolic 92 mm[Hg] Tamara Ha -[facility] Work Phone: 12-24-2019 13:12-0400 BP Systolic 158 mm[Hg] Tamara Ha -[facility] Work Phone: 12-24-2019 13:04-0400 BMI (Body Mass Index) 27.54 kg/m2 Tamara Novabao [facility] Work Phone: 12-24-2019 13:04-0400 Body Temperature 97.8 [degF] Tamara Ha -[facility] Work Phone: 12-24-2019 13:04-0400 Body weight 63.96 kg Tamara Ha -[facility] Work Phone: 12-24-2019 13:04-0400 BSA (Body Surface Area) 1.61 m2 Tamara Rohinibao -[facility] Work Phone: 12-24-2019 13:04-0400 Height 152.4 cm Tamara Ha -[facility] Work Phone: 12-24-2019 13:04-0400 Pulse (Heart Rate) 77 /min Tamara Ha -[facility] Work Phone: 12-24-2019 13:04-0400 Pulse Oximetry 99 % Tamara Ha -[facility] Work Phone: 09-09-2017 14:07-0400 BMI (Body Mass Index) 26.26 kg/m2 Jose Richardson [facility] 09-09-2017 14:07-0400 Height 154.9 cm Jose Richardson [facility] 09-09-2017 14:07-0400 Weight 63.05 kg Jose Richardson [facility] 1955 23:00-0500 >na< Yuliana Alejandra Dept. 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 Refugio Houston MD [facility] Work Phone: Start: 11-26-2024 End: 11-26-[address] Tamara Ha MD Work Phone: [facility] Start: 10-13-2024 End: 10-13-2024 Office outpatient visit 15 minutes Yuliana Alejandra MD Work Phone: [facility] Comment on above: Multiple benign nevi (Primary Dx); Lentigo; Seborrheic keratosis; Actinic skin damage; Family history of skin cancer; Personal history of malignant melanoma of skin; Screening exam for skin cancer; Urticaria pigmentosa; Psoriasis of nail Start: 10-13-2024 End: 10-13-2024 ambulatory [facility] Start: 09-18-2024 End: 09-18-2024 ambulatory [facility] Start: 09-03-2024 End: 09-03-[address] Refugio Houston MD -Medical Out Work Phone: Start: 09-03-2024 End: 09-03-[address] Tamara Ha MD Work Phone: [facility] Work Phone: Start: 08-19-2024 End: 08-19-2024 Assay of hemosiderin, quant Tamara Ha MD Work Phone: [facility] Work Phone: Start: 08-19-2024 End: 08-19-2024 Patient encounter procedure Tamara Ha MD Work Phone: [facility] Comment on above: Routine general medi shelly examination at health care facility (Primary Dx); Gastroesophageal reflux disease without esophagitis; Atherosclerosis 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; Impaired glucose tolerance; Vitamin B12 deficiency; Osteopenia, unspecified location; 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 Tamara Ha MD Work Phone: [facility] Work Phone: Start: 08-12-2024 End: 08-12-[address] Refugio Houston MD -Laboratory, [facility] Start: 08-12-2024 End: 04-23-2025 ambulatory Refugio Houston Facility:[facility] Start: 03-16-2024 End: 03-16-2024 ambulatory Tamara Ha Facility:[facility] Start: 12-06-2023 End: 12-06-2023 Office outpatient visit 25 minutes Mirza Spangler MD Work Phone: [facility] Comment on above: Melanoma in situ of left upper arm (Multi) Start: 08-19-2023 End: 08-19-2023 Assay of hemosiderin, quant Tamara Ha MD Work Phone: [facility] Work Phone: Start: 08-19-2023 End: 08-19-2023 Patient encounter procedure Tamara Ha MD Work Phone: [facility] Comment on above: Routine general medi shelly examination at health care facility (Primary Dx); Gastroesophageal reflux disease without esophagitis; Atherosclerosis 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; Impaired glucose tolerance; Vitamin B12 deficiency; Osteopenia, unspecified location Start: 08-13-2023 End: 08-13-2023 Office outpatient visit 25 minutes Lisa Mckeon MD PhD Work Phone: [facility] Comment on above: Mastocytosis (Primar y Dx); Atherosclerosis 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; Cutaneous mastocytosis Start: 02-20-2023 End: 02-20-2023 ambulatory TAMARA HA Facility:[facility] Start: 01-04-2023 End: 01-04-[address] Tamara Ha Work Phone: [facility] Work Phone: Start: 01-04-2023 End: 01-04-[address] Tamara Ha Work Phone: [facility]patient [facility] Work Phone: Start: 12-26-2022 End: 12-26-[address] Tamara Ha Work Phone: [facility] Work Phone: Start: 12-26-2022 End: 12-26-[address] Tamara Ha Work Phone: [facility], [facility] [place] Start: 11-28-2022 ambulatory ,PHD LISA MCKEON Facility:[id number] Start: 11-28-2022 Office outpatient ne w 30 minutes Yuliana Alejandra Dept. of Dermatology Start: 11-28-2022 Office outpatient vi sit 15 minutes Yuliana Alejandra Dept. of Dermatology Start: 11-22-2022 End: 11-22-[address] Tamara Ha Work Phone: [facility] Work Phone: Start: 10-25-2022 End: 10-25-2022 Office outpatient visit 15 minutes Tamara Ha MD Work Phone: [facility] Comment on above: Cellulitis of back e xcept buttock (Primary Dx) Start: 08-16-2022 End: 08-16-2022 Office outpatient visit 25 minutes Tamara Ha MD Work Phone: [facility] Comment on above: Gastroesophageal ref lux disease without esophagitis (Primary Dx); Atherosclerosis 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; Impaired glucose tolerance; Vitamin B12 deficiency; Osteopenia, unspecified location Start: 08-14-2022 ambulatory MD TAMARA HA Facility:[id number] Start: 07-12-2022 ambulatory PIERRE [place] Facility:[facility] Start: 06-11-2022 ambulatory MD TAMARA HA Facility:[id number] Start: 06-11-2022 Patient encounter procedure Tamara Ha Work Phone: [facility] Work Phone: Start: 06-11-2022 End: 06-15-2022 ambulatory MALLORY CRAWFORD [facility] Start: 06-11-2022 End: 06-11-2022 Office outpatient new 30 minutes Mallory Crawford DPM Work Phone: [facility] Comment on above: 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 Work Phone: Start: 04-12-2022 ambulatory MD TAMARA HA Facility:[id number] Start: 03-14-2022 ambulatory MD TAMARA HA Facility:[id number] Start: 03-14-2022 Patient encounter procedure Tamara Ha Work Phone: [facility] Work Phone: Start: 01-31-2022 Adv care pln/ no alt dcsn mkr docd or refusal Tamara Ha Work Phone: [facility] Work Phone: Start: 01-31-2022 ambulatory MD TAMARA HA Facility:[id number] Start: 01-24-2022 Chart Update Tamara salazar Work Phone: [facility] Work Phone: Start: 01-03-2022 End: 01-03-[address] Tamara Ha Work Phone: [facility] Work Phone: Start: 01-03-2022 End: 01-03-[address] Tamara Ha Work Phone: [facility]-Medical Out Start: 12-26-2021 Patient encounter procedure Tamara Ha Work Phone: [facility] Work Phone: Start: 12-26-2021 ambulatory MD TAMARA HA Facility:[id number] Start: 11-23-2021 End: 11-23-2021 Patient encounter procedure Tamara Ha Work Phone: [facility] Start: 11-16-2021 End: 11-16-2021 Patient encounter procedure [facility] Start: 10-19-2021 Patient encounter procedure Tamara Ha Work Phone: [facility] Work Phone: Start: 10-10-2021 AUDIT Tamara Nova bao Work Phone: [facility] Work Phone: Start: 09-05-2021 Patient encounter procedure Tamara Ha Work Phone: [facility] Work Phone: Start: 05-31-2021 End: 06-04-[address] [facility] Start: 05-30-2021 Patient encounter procedure Tamara Ha Work Phone: [facility] Work Phone: Start: 04-07-2021 Patient encounter procedure Tamara Ha Work Phone: [facility] Work Phone: Start: 03-29-2021 COLON, Provider: Sarthak Mae, Status: Pen, Time: 8:00 AM Tamara Novacel [facility] Phone[facility] Work Phone: Start: 03-28-2021 Chart Update [facility] bao [facility] Work Phone: Start: 02-24-2021 AUDIT Tamara Nova bao Work Phone: [facility] Work Phone: Start: 02-20-2021 Chart Update Tamara Myles Rohini bao Work Phone: [facility] Work Phone: Start: 02-01-2021 Chart Update Tamara Myles Rohini bao Work Phone: [facility] Work Phone: Start: 01-30-2021 Patient encounter procedure Tamara Novacel Work Phone: [facility] Work Phone: Start: 01-23-2021 Patient encounter procedure Tamara Myles Stencel Work Phone: [facility] Work Phone: Start: 01-11-2021 AUDIT Tamara Bueno Sten bao Work Phone: [facility] Work Phone: Start: 12-19-2020 Patient encounter procedure Tamara Myles Stencel Work Phone: [facility] Work Phone: Start: 11-16-2020 Patient encounter procedure Tamara D Stencel Work Phone: [facility] Work Phone: Start: 10-11-2020 Patient encounter procedure Tamara Bueno Stencel Work Phone: [facility] Work Phone: Start: 2020 End: 2020 Orders Only Pina Glez Jose Work Phone: [facility] Start: 06-07-2020 Patient encounter procedure [id number] [facility] ASHL1 RN 1 [facility] Work Phone: Start: 04-18-2020 Patient encounter procedure [id number] [facility] ASHL1 RN 1 [facility] Work Phone: Start: 04-13-2020 Patient encounter procedure [id number] [facility] ASHL1 RN 1 [facility] Work Phone: Start: 04-11-2020 Patient encounter procedure [id number] [facility] ASHL1 RN 1 [facility] Work Phone: Start: 04-08-2020 Patient encounter procedure [id number] [facility] ASHL1 RN 1 [facility] Work Phone: Start: 04-04-2020 Patient encounter procedure [id number] [facility] ASHL1 RN 1 [facility] Work Phone: Start: 03-31-2020 Patient encounter procedure [id number] [facility] ASHL1 RN 1 [facility] Work Phone: Start: 03-30-2020 Patient encounter procedure [id number] [facility] ASHL1 RN 1 [facility] Work Phone: Start: 03-28-2020 Patient encounter procedure [id number] [facility] ASHL1 RN 1 [facility] Work Phone: Start: 03-25-2020 Patient encounter procedure [id number] [facility] ASHL1 RN 1 [facility] Work Phone: Start: 03-23-2020 Patient encounter procedure [id number] [facility] ASHL1 RN 1 [facility] Work Phone: Start: 03-21-2020 Patient encounter procedure [id number] [facility] ASHL1 RN 1 [facility] Work Phone: Start: 03-16-2020 Patient encounter procedure [id number] [facility] ASHL1 RN 1 [facility] Work Phone: Start: 03-14-2020 Patient encounter procedure [id number] [facility] ASHL1 RN 1 [facility] Work Phone: Start: 03-11-2020 Patient encounter procedure [id number] [facility] ASHL1 RN 1 [facility] Work Phone: Start: 03-09-2020 Patient encounter procedure Luis Enrique [facility] Work Phone: Start: 03-07-2020 Patient encounter procedure Luis Enrique Dew [facility] Work Phone: Start: 03-04-2020 Patient encounter procedure Luis Enrique Dew [facility] Work Phone: Start: 03-02-2020 Patient encounter procedure Luis Enrique Dew [facility] Work Phone: Start: 03-01-2020 Patient encounter procedure Luis Enrique Dew [facility] Work Phone: Start: 02-29-2020 Patient encounter procedure Luis Enrique Dew [facility] Work Phone: Start: 02-25-2020 Patient encounter procedure Luis Enrique Dew [facility] Work Phone: Start: 01-26-2020 Patient encounter procedure Luis Enrique Dew [facility] Work Phone: Start: 01-18-2020 Patient encounter procedure Luis Enrique Dew [facility] Work Phone: Start: 01-11-2020 Patient encounter procedure Luis Enrique Dew [facility] Work Phone: Start: 01-01-2020 Patient encounter procedure Luis Enrique Dew [facility] Work Phone: Start: 12-24-2019 Patient encounter procedure Tamara Ha [facility] Work Phone: Start: 03-06-2019 Patient encounter procedure Tamara Ha [facility] Work Phone: Start: 03-04-2019 Patient encounter procedure Tamara Ha [facility] Work Phone: Start: 03-02-2019 Patient encounter procedure Tamara Ha [facility] Work Phone: Start: 02-27-2019 Patient encounter procedure Tamara Ha [facility] Work Phone: Start: 02-25-2019 Patient encounter procedure [facility] Ha [facility] Work Phone: Start: 02-23-2019 Patient encounter procedure Tamara Ha [facility] Work Phone: Start: 02-20-2019 Patient encounter procedure Tamara Ha [facility] Work Phone: Start: 02-18-2019 Patient encounter procedure Tamara Ha [facility] Work Phone: Start: 02-16-2019 Patient encounter procedure Tamara Ha [facility] Work Phone: Start: 02-13-2019 Patient encounter procedure Tamara Ha [facility] Work Phone: Start: 02-11-2019 Patient encounter procedure Tamara Ha [facility] Work Phone: Start: 02-09-2019 Patient encounter procedure Tamara Ha [facility] Work Phone: Start: 02-05-2019 Patient encounter procedure Tamara Ha [facility] Work Phone: Start: 09-29-2018 End: 09-29-2018 Postop follow up visit related to original px Jose Richardson Work Phone: [facility] Comment on above: Primary osteoarthrit is of both knees (Primary Dx) Start: 05-26-2018 End: 05-26-2018 Postop follow up visit related to original px Jose Richardson Work Phone: [facility] Comment on above: Primary osteoarthrit is of both knees (Primary Dx) Start: 02-17-2018 End: 02-17-2018 Office outpatient visit 10 minutes Jose Richardson Work Phone: [facility] Comment on above: Arthritis of right k nee (Primary Dx); Left knee pain, unspecified chronicity; Primary osteoarthritis of both knees Start: 09-09-2017 End: 09-09-2017 Office/outpatient visit, [facility] 2 Jose Richardson Work Phone: [facility] Procedures Date Procedure Procedure Detail Performing Clinician Start: 08-12-2024 Vitamin D, 25-hydrox y measurement Dr. Tamara Ha MD Work Phone: Comment on above: Vitamin D StatusDefi ciency: <20 ng/mL (50nmol/L)Insufficiency: 20-30 ng/mL (50-75 nmol/L)Sufficiency: 30-100 ng/mL (75-250 nmol/L)Toxicity: >100 ng/mL (>250 nmol/L) Start: 03-15-2024 Mammography Tamara Black MD Work Phone: Start: 12-06-2023 SKIN EXCISION Mirza gandhi MD Work Phone: Start: 12-06-2023 SKIN REPAIR Mirza pathak MD Work Phone: Start: 08-13-2023 Comprehensive metabo lic panel Tamara Ha MD Work Phone: Start: 08-13-2023 Lipid panel Tamara Ha MD Work Phone: Start: 08-13-2023 Lipid 1996 panel - S krysten or Plasma Lisa Mckeon MD PhD Work Phone: Start: 01-04-2023 End: 01-04-[address] Tamara mckeon Work Phone: Start: 01-24-2022 Lipid 1996 panel - S krysten or Plasma Tamara Ha MD Work Phone: Start: 11-16-2021 End: 11-16-2021 Screening mammography Start: 03-29-2021 End: 03-29-2021 Colonoscopy Tamara Ha Work Phone: Start: 12-24-2019 Antinuclear antibodies munir Tamara Ha Start: 12-24-2019 C-reactive protein Moreno ael Leland Start: 12-24-2019 Cyanocobalamin vitamin b-12 Tamara Ha Start: 12-24-2019 Cyclic citrullinated peptide antibody Tamara Ha Start: 12-24-2019 Rheumatoid factor quantitative Tamara Ha Start: 12-24-2019 Sedimentation rate r bc automated Tamara Novacel Start: 02-17-2018 End: 02-17-2018 X-ray of left knee Jose Menon Azar bueno Work Phone: Arthroplasty of knee Tamara Ha Comment on above: partial knee replace ment, dr moore; section Tamara Gil ncel Colonoscopy Tamara Novabao Decompression of med elijah nerve Tamara Leland Dilation and curettage Paul francisco j Ha Plan of Treatment Date Care Activity Detail Author Start: 03-29-2031 Screening for malign ant neoplasm of colon [facility] Start: 08-12-2028 Lipid panel Lipid Panel [facility] Start: 01-24-2027 Lipid panel Lipid Panel [facility] Start: 10-16-2026 DTaP/Tdap/Td Vaccine s (2 - Td or Tdap) DTaP/Tdap/Td Vaccines (2 - Td or Tdap) [facility] Start: 10-16-2026 Tetanus vaccination [facility] Start: 12-28-2025 End: 12-28-2025 Patient encounter procedure 12/28/2025 10:00 AM EDT Office Visit [facility] [address] [facility] [address] [place] [address] Lisa Mckeon [place] PhD [address] [place] [address] [facility] Start: 10-19-2025 End: 10-19-2025 Patient encounter procedure 10/19/2025 10:00 AM EDT Office Visit [facility] [address] [facility] [address] [place] [address] Yuliana Alejandra MD [address] [place] [facility] [address] [place] [address] [facility] Start: 10-13-2025 Skin Cancer Screening Skin Cancer Sc [facility] Start: 08-23-2025 End: 08-23-2025 Patient encounter procedure 08/23/2025 8:40 AM EDT Office Visit [place] [address] [phone] Tamara Ha MD [address] [address] [facility] Start: 08-20-2025 Medicare Annual Wellness Visit Medicare Annual Wellness Visit (AWV) [facility] Start: 03-15-2025 Screening for malign ant neoplasm of breast Mammogram [facility] Start: 12-21-2024 COVID-19 Vaccine ( season) COVID-19 Vaccine ( season) [facility] Start: 12-21-2024 Influenza vaccination [facility] Start: 12-20-2024 End: 12-20-2025 Comprehensive metabolic 2000 panel - Serum or Plasma Comprehensive Metabolic Panel Lab Routine Cutaneous mastocytosis Polycythemia Expected: 12/20/2024 (Approximate), Expires: 12/20/2025 [facility] Service Area Work Phone: Comment on above: Expected: 12/20/2024 (Approximate), Expires: 12/20/2025 Start: 12-20-2024 End: 12-20-2025 Erythropoietin (EPO) [Units/volume] in Serum or Plasma Erythropoietin Lab Routine Cutaneous mastocytosis Polycythemia Expected: 12/20/2024 (Approximate), Expires: 12/20/2025 [facility] Work Phone: Comment on above: Expected: 12/20/2024 (Approximate), Expires: 12/20/2025 Start: 12-20-2024 End: 12-20-2025 Tryptase [Mass/volume] in Serum or Plasma Tryptase Lab Routine Cutaneous mastocytosis Polycythemia Expected: 12/20/2024 (Approximate), Expires: 12/20/2025 [facility] Work Phone: Comment on above: Expected: 12/20/2024 (Approximate), Expires: 12/20/2025 Start: 11-19-2024 End: 11-19-2024 Patient encounter procedure 11/19/2024 9:30 AM EDT Office Visit [facility] [address] [place] [address] Yuliana Alejandra MD [address] [address] [facility] Start: 10-21-2024 End: 10-21-2024 Clinical Support 10/21/2024 9:00 AM EDT Clinical Support [address] [phone] [facility] Start: 10-20-2024 End: 10-20-2024 Patient encounter procedure 10/20/2024 9:40 AM EDT Office Visit [facility] [address] [facility] [address] [place] [phone] Lisa Mckeon [place] PhD [address] [place] [address] [facility] Start: 10-13-2024 End: 10-13-2024 Patient encounter procedure 10/13/2024 11:30 AM EDT Office Visit [facility] [address] [place] [phone] Yuliana Alejandra MD [address] [place], [address] [address] [facility] Start: 09-18-2024 End: 09-18-2024 Clinical Support 09/18/2024 9:00 AM EDT Clinical Support [address] [phone] [facility] Start: 09-03-2024 Iv infusion therapy/prophylaxis /dx 1st to 1 hr [facility] Start: 08-19-2024 End: 08-19-2025 CBC panel - Blood by Automated count CBC Lab Routine Impaired glucose tolerance Combined hyperlipidemia Expected: 08/19/2024 (Approximate), Expires: 08/19/2025 [facility] Service Area Work Phone: Comment on above: Expected: 08/19/2024 (Approximate), Expires: 08/19/2025 Start: 08-19-2024 End: 08-19-2025 Comprehensive metabolic 2000 panel - Serum or Plasma Comprehensive Metabolic Panel Lab Routine Impaired glucose tolerance Combined hyperlipidemia Expected: 08/19/2024 (Approximate), Expires: 08/19/2025 [facility] Work Phone: Comment on above: Expected: 08/19/2024 (Approximate), Expires: 08/19/2025 Start: 08-19-2024 End: 08-19-2025 Lipid 1996 panel - Serum or Plasma Lipid Panel Lab Routine Impaired glucose tolerance Combined hyperlipidemia Expected: 08/19/2024 (Approximate), Expires: 08/19/2025 [facility] Work Phone: Comment on above: Expected: 08/19/2024 (Approximate), Expires: 08/19/2025 Start: 08-19-2024 Medicare Annual Wellness Visit Medicare Annual Wellness Visit (AWV) [facility] Start: 08-19-2024 End: 08-19-2024 Patient encounter procedure [facility] Start: 08-12-2024 Diabetes mellitus screening Diabetes Screening [facility] Start: 08-11-2024 End: 08-11-2024 Patient encounter procedure 08/11/2024 9:40 AM EDT Office Visit [facility] [address] [facility] [address] [place] [address] Lisa Mckeon [place] PhD [address] [place] [address] [facility] Start: 05-21-2024 Examination of skin Derm Melanoma Sk in Check [facility] Start: 01-05-2024 Screening for malign ant neoplasm of breast Mammogram [facility] Start: 12-22-2023 COVID-19 Vaccine () COVID-19 Vaccine () [facility] Start: 12-22-2023 Influenza vaccination [facility] Start: 12-13-2023 End: 12-13-2023 Clinical Support 12/13/2023 9:45 AM EDT Clinical Support [facility] [address] [place] [address] [facility] Start: 12-10-2023 End: 12-10-2023 Clinical Support 12/10/2023 9:30 AM EDT Clinical Support [facility] [address] [place] [address] [facility] Start: 11-19-2023 End: 11-19-2023 Patient encounter procedure 11/19/2023 10:00 AM EDT Office Visit [facility] [address] [facility] [address] [place] [phone] Yuliana Alejandra MD [address] [place], [facility] [address] [place] [address] [facility] Start: 09-23-2023 End: 09-23-2023 Clinical Support 09/23/2023 9:00 AM EDT Clinical Support [facility] [address] [place] [address] [facility] Start: 08-19-2023 End: 08-18-2024 CBC panel - Blood by Automated count CBC Lab Routine Atherosclerosis 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 Impaired glucose tolerance Osteopenia, unspecified location Expected: 08/19/2023 (Approximate), Expires: 08/18/2024 [facility] Service Area Work Phone: Comment on above: Expected: 08/19/2023 (Approximate), Expires: 08/18/2024 Start: 08-19-2023 End: 08-18-2024 Comprehensive metabolic 2000 panel - Serum or Plasma Comprehensive Metabolic Panel Lab Routine Atherosclerosis 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 Expected: 08/19/2023 (Approximate), Expires: 08/18/2024 [facility] Work Phone: Comment on above: Expected: 08/19/2023 (Approximate), Expires: 08/18/2024 Start: 08-19-2023 End: 08-18-2024 Lipid 1996 panel - Serum or Plasma Lipid Panel Lab Routine Atherosclerosis 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 Expected: 08/19/2023 (Approximate), Expires: 08/18/2024 [facility] Work Phone: Comment on above: Expected: 08/19/2023 (Approximate), Expires: 08/18/2024 Start: 08-19-2023 End: 08-19-2023 Patient encounter procedure [facility] Start: 08-14-2023 End: 08-13-2024 Cancer related large scale gene targeted mutation analysis in Blood or Tissue by Molecular genetics method Myeloid Malignancies NGS Panel Lab Add-On Mastocytosis Cutaneous mastocytosis Expected: 08/14/2023 (Approximate), Expires: 08/13/2024 [facility] Service Area Work Phone: Comment on above: Expected: 08/14/2023 (Approximate), Expires: 08/13/2024 Start: 07-13-2023 Diabetes mellitus screening Diabetes Screening [facility] Start: 07-13-2023 Hemoglobin A1c measurement Diabetes: Hemoglobin A1C [facility] Start: 02-01-2023 Medicare Annual Wellness Visit Medicare Annual Wellness Visit (AWV) [facility] Start: 12-21-2022 COVID-19 Vaccine ( season) COVID-19 Vaccine () [facility] Start: 12-21-2022 COVID-19 Vaccine ( season) COVID-19 Vaccine () [facility] Start: 12-21-2022 Influenza vaccination Influenza Vacc ine (#1) [facility] Start: 11-23-2022 End: 11-23-2022 Clinical Support 11/23/2022 9:00 AM EDT Clinical Support [facility] [address] [place] [address] [facility] Start: 07-28-2023 Screening for malign ant neoplasm of breast Mammogram [facility] Start: 09-18-2022 End: 09-18-2022 Clinical Support 09/18/2022 9:15 AM EDT Clinical Support [facility] [address] [place] [address] [facility] Start: 08-16-2022 End: 08-17-2023 CBC panel - Blood by Automated count CBC Lab Routine Atherosclerosis 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 Expected: 08/16/2022 (Approximate), Expires: 08/17/2023 [facility] Service Area Work Phone: Comment on above: Expected: 08/16/2022 (Approximate), Expires: 08/17/2023 Start: 08-16-2022 End: 08-17-2023 Comprehensive metabolic 2000 panel - Serum or Plasma Comprehensive Metabolic Panel Lab Routine Atherosclerosis 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 Expected: 08/16/2022 (Approximate), Expires: 08/17/2023 [facility] Work Phone: Comment on above: Expected: 08/16/2022 (Approximate), Expires: 08/17/2023 Start: 08-16-2022 End: 08-17-2023 Lipid 1996 panel - Serum or Plasma Lipid Panel Lab Routine Atherosclerosis 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 Expected: 08/16/2022 (Approximate), Expires: 08/17/2023 [facility] Work Phone: Comment on above: Expected: 08/16/2022 (Approximate), Expires: 08/17/2023 Start: 08-16-2022 EPV, Provider: Tamara Ha, Status: Pen, Time: 8:20 AM EPV, Provider: Tamara Ha, Status: Pen, Time: 8:20 AM [facility] Work Phone: Start: 06-08-2022 NURSEVST, Provider: [facility] ENRIKEL1 RN 1,[id number], Status: Pen, Time: 9:00 AM NURSEVST, Provider: [facility] ASHL1 RN 1,[id number], Status: Pen, Time: 9:00 AM [facility] Work Phone: Start: 06-01-2022 COVID-19 Vaccine (4 - Booster for Moderna series) COVID-19 Vaccine (4 - Booster for Moderna series) [facility] Start: 04-13-2022 NURSEVST, Provider: [facility] ASHL1 RN 1,[id number], Status: Pen, Time: 9:30 AM NURSEVST, Provider: [facility] ASHL1 RN 1,[id number], Status: Pen, Time: 9:30 AM [facility] Work Phone: Start: 03-05-2022 NURSEVST, Provider: [facility] ASHL1 RN 1,[id number], Status: Pen, Time: 9:00 AM NURSEVST, Provider: [facility] ASHL1 RN 1,[id number], Status: Pen, Time: 9:00 AM [facility] Work Phone: Start: 01-31-2022 Patient encounter procedure MCRANNUAL, Provider: Tamara Ha, Status: Pen, Time: 8:40 AM [facility] Work Phone: Start: 01-03-2022 Iv infusion therapy/prophylaxis /dx 1st to 1 hr [facility] Work Phone: Start: 12-26-2021 NURSEVST, Provider: [facility] ASHL1 RN 1,[id number], Status: Pen, Time: 9:00 AM NURSEVST, Provider: [facility] ASHL1 RN 1,[id number], Status: Pen, Time: 9:00 AM [facility] Work Phone: Start: 11-23-2021 NURSEVST, Provider: [facility] ASHL1 RN 1,[id number], Status: Pen, Time: 2:00 PM NURSEVST, Provider: [facility] ASHL1 RN 1,[id number], Status: Pen, Time: 2:00 PM [facility] Work Phone: Start: 10-19-2021 NURSEVST, Provider: [facility] ASHL1 RN 1,[id number], Status: Pen, Time: 9:30 AM NURSEVST, Provider: [facility] ASHL1 RN 1,[id number], Status: Pen, Time: 9:30 AM [facility] Work Phone: Start: 10-06-2021 NURSEVST, Provider: [facility] ASHL1 RN 1,[id number], Status: Pen, Time: 9:00 AM NURSEVST, Provider: [facility] ASHL1 RN 1,[id number], Status: Pen, Time: 9:00 AM [facility] Work Phone: Start: 08-07-2021 NURSEVST, Provider: [facility] ASHL1 RN 1,[id number], Status: Pen, Time: 8:45 AM NURSEVST, Provider: [facility] ASHL1 RN 1,[id number], Status: Pen, Time: 8:45 AM [facility] Work Phone: Start: 05-30-2021 NURSEVST, Provider: [facility] ASHL1 RN 1,[id number], Status: Pen, Time: 8:45 AM NURSEVST, Provider: [facility] ASHL1 RN 1,[id number], Status: Pen, Time: 8:45 AM [facility] Work Phone: Start: 04-07-2021 Screening for osteoporosis Bone Density Scan [facility] Start: 04-07-2021 NURSEVST, Provider: [facility] ASHL1 RN 1,[id number], Status: Pen, Time: 9:00 AM NURSEVST, Provider: [facility] ASHL1 RN 1,[id number], Status: Pen, Time: 9:00 AM [facility] Work Phone: Start: 03-29-2021 COLON, Provider: Sarthak Mae, Status: Pen, Time: 8:00 AM COLON, Provider: Sarthak Mae, Status: Pen, Time: 8:00 AM [facility] Work Phone: Start: 03-28-2021 COLON, Provider: Sarthak Mae, Status: Pen, Time: 8:00 AM COLON, Provider: Sarthak Mae, Status: Pen, Time: 8:00 AM [facility] Work Phone: Start: 03-09-2021 NURSEVST, Provider: [facility] ASHL1 RN 1,[id number], Status: Pen, Time: 9:00 AM NURSEVST, Provider: [facility] ASHL1 RN 1,[id number], Status: Pen, Time: 9:00 AM [facility] Work Phone: Start: 01-19-2021 NURSEVST, Provider: [facility] ASHL1 RN 1,[id number], Status: Pen, Time: 9:15 AM NURSEVST, Provider: [facility] ASHL1 RN 1,[id number], Status: Pen, Time: 9:15 AM [facility] Work Phone: Start: 12-19-2020 NURSEVST, Provider: [facility] ASHL1 RN 1,[id number], Status: Pen, Time: 9:00 AM NURSEVST, Provider: [facility] ASHL1 RN 1,[id number], Status: Pen, Time: 9:00 AM [facility] Work Phone: Start: 11-15-2020 NURSEVST, Provider: [facility] ASHL1 RN 1,[id number], Status: Pen, Time: 9:00 AM NURSEVST, Provider: [facility] ASHL1 RN 1,[id number], Status: Pen, Time: 9:00 AM -[facility] Work Phone: Start: 2020 Fall risk assessment Falls Risk Asse ssment [facility] Start: 12-22-2019 Influenza vaccinatio n given Sequential Influenza Vaccine (#1) [facility] Start: 12-21-2018 Influenza vaccinatio n given SEQUENTIAL INFLUENZA VACCINE (Season Ended) [facility] Start: 12-21-2017 Influenza vaccination [facility] Start: 12-21-2017 Influenza vaccinatio n given SEQUENTIAL INFLUENZA VACCINE (#1) [facility] Start: 06-04-2017 Administration of herpes zoster vaccine Zoster Vaccines (2 of 3) [facility] Start: 06-04-2017 Zoster Vaccines (2 o f 3) Zoster Vaccines (2 of 3) [facility] Start: 05-07-2017 MMR Vaccines (1 of 1 - Standard series) MMR Vaccines (1 of 1 - Standard series) [facility] Start: 2015 Zoster vacc, sc ZOSTER VACCINE [facility] Start: 2005 Administration of herpes zoster vaccine ZOSTER VACCINES (1 of 2) [facility] Start: 2005 Screening for malign ant neoplasm of colon [facility] Start: 2005 ZOSTER VACCINES (1 o f 2) ZOSTER VACCINES (1 of 2) [facility] Start: 1995 Screening for malign ant neoplasm of breast Mammogram [facility] Start: 1973 Hepatitis C antibody , confirmatory test Hepatitis C Screening [facility] Start: 1973 Hepatitis C screening Hepatitis C Sc reening [facility] Start: 1970 HIV screening HIV Screening [facility] Start: 1967 Adolescent depressio n screening assessment Depression Screening (PHQ9) [facility] Start: 1967 Depression screening using PHQ-9 (Patient Health Questionnaire 9) score Depression Screening (PHQ-2/9) [facility] Start: 1958 History and physical examination, annual for health maintenance Wellness Visit [facility] Start: 1955 Hepatitis C antibody , confirmatory test HEPATITIS C SCREENING [facility] Start: 1955 HEPATITIS C SCREENING HEPATITIS C SC REENING [facility] Start: 1955 Medicare Annual Wellness Visit Medicare Annual Wellness Visit (AWV) [facility] Start: 1955 Protein mass conc [facility] Start: 1955 Screening colonoscopy [facility] Start: 1955 Screening for malign ant neoplasm of cervix PAP SMEAR [facility] Start: 1955 Screening for malign ant neoplasm of colon [facility] Start: 1955 Screening for osteoporosis [facility] Start: 1955 Screening mammography Mammogram [facility] Start: 1955 Tetanus vaccination TETANUS EVERY 10 YR [facility] Comprehensive metabo lic 2000 panel - Serum or Plasma Comprehensive Metabolic Panel Lab Routine Cutaneous mastocytosis Polycythemia 12/22/2024 10:21 AM [facility] Work Phone: Dermatopathology- DE RM LAB [facility] Service Area Work Phone: Comment on above: Release Upon Orderin g for 1 Occurrences starting 12/06/2023 Erythropoietin (EPO) [Units/volume] in Serum or Plasma Erythropoietin Lab Routine Cutaneous mastocytosis Polycythemia 12/22/2024 10:21 AM [facility] Work Phone: Tryptase [Mass/volum e] in Serum or Plasma Tryptase Lab Routine Cutaneous mastocytosis Polycythemia 12/22/2024 10:21 AM [facility] Work Phone: NEGATED: Highlighted row has been ruled out! Planned Goals not documented [facility] Work Phone: Immunizations Immunization Date Immunization Notes Care Provider [facility] 04-16-2023 RESPIRATORY SYNCYTIA L VIRUS (RSV), ELIGIBLE PTS, 0.5 ML (ABRYSVO) Lisa Mckeon MD PhD Work Phone: [facility] 04-06-2022 Moderna COVID-19 Biv al Booster 50 MCG/0.5ML Intramuscular Suspension Tamara Ha Work Phone: [facility] Comment on above: Series: 03-02-2022 Fluzone High-Dose Quadrivalent 0.7 ML Intramuscular Suspension Prefilled Syringe Tamara Ha Work Phone: [facility] Work Phone: 03-02-2022 influenza, seasonal, injectable Tamara Ha MD Work Phone: [facility] Work Phone: 03-02-2022 influenza virus vaccine, unspecified formulation Tamara Ha MD Work Phone: [facility] Work Phone: 01-31-2022 Prevnar 20 0.5 ML Intramuscular Suspension Prefilled Syringe; Translations: [Prevnar 20 0.5 ML Intramuscular Suspension Prefilled Syringe] Tamara Ha Work Phone: [facility] Work Phone: Comment on above: Series: 02-11-2021 Moderna COVID-19 Vaccine 100 MCG/0.5ML Intramuscular Suspension Tamara Ha Work Phone: [facility] 01-30-2021 pneumococcal polysaccharide vaccine, 23 valent; Translations: [Pneumococcal polysaccharide vaccine, 23 valent] Tamara Ha Work Phone: [facility] Work Phone: Comment on above: Series: 07-15-2020 Moderna COVID-19 Vaccine 100 MCG/0.5ML Intramuscular Suspension Tamara Ha Work Phone: [facility] Work Phone: Comment on above: Series: 06-17-2020 Moderna COVID-19 Vaccine 100 MCG/0.5ML Intramuscular Suspension Tamara Ha Work Phone: [facility] Work Phone: Comment on above: Series: 04-09-2017 zoster vaccine, live Tamara Ha Work Phone: [facility] 10-16-2016 tetanus toxoid, redu kevin diphtheria toxoid, and acellular pertussis vaccine, adsorbed Tamara Ha [facility] Comment on above: Series: 03-07-2009 influenza virus vaccine, whole virus Tamara Ha Work Phone: [facility] Work Phone: 03-09-2008 influenza virus vaccine, whole virus Tamara Ha Work Phone: [facility] 03-18-2007 influenza virus vaccine, whole virus Tamara Ha Work Phone: [facility] Work Phone: 1955 pneumococcal conjuga te vaccine, 7 valent Yuliana Alejandra Dept. of Dermatology Payers Date Payer Category Payer Self-pay [id number] 2021 Medicare [id number] 2021 Medicare (Managed Care) [employer] MEDICARE [id number] 2021 Medicare [id number] 2017 Unknown MMO MED MUTUAL S UPERMED PPO xxxxxxx 2017-Present [id number] 2017 Unknown MMO MED MUTUAL S UPERMED PPO [id number] 2017-Present [id number]. [id number] 1955 Unknown [id number] 2.16.840.1.373358.3.579.2. 903 1955 Unknown [id number] 2.16.840.1.284625.3.579.2. 903 1955 Unknown [id number] 2.16.840.1.235330.3.579.2. 903 1955 Unknown [id number] 2.16.840.1.379305.3.579.2. 356 1955 Unknown [id number] 2.16.840.1.736706.3.579.2. 356 1955 Unknown [id number] 2.16.840.1.170779.3.579.2. 356 1955 Unknown [id number] 2.16.840.1.802017.3.579.2. 356 1955 Unknown [id number] 2.16.840.1.049077.3.579.2. 356 1955 Unknown [id number] 2.16.840.1.662064.3.579.2. 356 1955 Unknown [id number] 2.16.840.1.996551.3.579.2. 356 1955 Unknown [id number] 2.16.840.1.760533.3.579.2. 356 1955 Unknown [id number] 2.16.840.1.651791.3.579.2. 1245 1955 Unknown [id number] 2.16.840.1.293004.3.579.2. 1245 1955 Unknown [id number] 2.16.840.1.024023.3.579.2. 4 1955 Unknown [id number] 2.16.840.1.254797.3.579.2. 1244 1955 Unknown [id number] 2.16.840.1.262516.3.579.2. 1244 1955 Unknown [id number] 2.16.840.1.693973.3.579.2. 1244 1955 Unknown [id number] 2.16.840.1.925894.3.579.2. 1244 1955 Unknown [id number] 2.16.840.1.326167.3.579.2. 1244 Unknown Unknown [id number] Unknown [id number] 2.16.840.1.164600.3.579.2. 462 Unknown [id number] 2.16.840.1.855878.3.579.2. 462 Unknown [id number] 2.16.840.1.737005.3.579.2. 462 Unknown [id number] 2.16.840.1.483307.3.579.2. 462 Social History Date Type Detail Facility Start: 09-09-2017 End: 08-16-2022 Tobacco smoking status UTIS Never smoker [facility] Start: 1955 Sex Assigned At Not on file [facility] Start: 09-29-2018 End: 08-16-2022 Tobacco use and exposure Never used [facility] Start: 09-29-2018 End: 06-11-2022 Alcohol intake Current drinker of alcohol (finding) [facility] Start: 08-16-2022 End: 08-19-2024 Consumes alcohol Consumes alcohol [facility] Work Phone: Start: 1955 End: 1955 Sex Assigned At Female [facility] Start: 06-01-2022 End: 09-18-2024 Exposure to SARS-CoV-2 (event) Not sure [facility] Start: 08-16-2022 End: 10-13-2024 Alcohol intake Lifetime non-drinker (finding) [facility] Work Phone: Start: 08-16-2022 End: 08-19-2024 Tobacco use panel [facility] Work Phone: Start: 10-23-2022 Gender identity Identifies as female gender (finding) [facility] Work Phone: Start: 11-28-2022 Dept. of D ermatology Start: 08-17-2024 Sex Female (finding) [facility] Start: 03-17-2022 Sex Female [facility] Goals Date Patient Goal Desired Activity /State Functional Status Date Assessment Result Facility 08-19-2024 Patient Health Questionnaire 2 item (PHQ-2) [Reported] [facility] Work Phone: NEGATED: Highlighted row Functional performance Functional status health issues are not documented [facility] Work Phone: Mental Status Date Assessment Result Facility 09-03-2024 Cognitive function Awake;Alert;A [employer] te;Follows Commands [facility] Work Phone: 01-04-2023 Cognitive function Awake;Alert;A [facility] te;Follows Commands [facility] Work Phone: 01-03-2022 Cognitive function Voice/Name [facility] Work Phone: NEGATED: Highlighted row Cognitive function [Interpretation] Cognitive status health issues are not documented Disease [facility] Work Phone: Clinical Notes 06-11-2022 to 12-22-2024 Lisa Mckeon MD PhD - 12/22/2024 10:00 AM Génesis Varela RN - 12/22/2024 10:00 AM Ariel Alejandra MD - 10/13/2024 11:30 AM EDTPatient Instructions Note Date & Type Note Facility 12-22-2024 History of Present illness Narrative Patient ID: Urbano Musa is a 69 y.o. female. Oncology History Overview Note UP dx by skin bx around age 40. Pt states that the cutaneous lesions are flat, purplish, and predominantly affect her torso but sometimes extend to her hips. She denies flushing, diarrhea, and cough (except related to GERD). Lesions are not bothersome. They are triggered by heat (shower or hot weather). They don't seem to be behaving differently over time. 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 Dx with melanoma last November; on L forearm, fully resected. Cutaneous mastocytosis lesions mainly triggered by heat, no changes in pattern. No cough or SOB. More diarrhea lately; occurred twice in the past 3 months. With each episode, goes 4-5x in 1 day, liquid consistency, nonbilious, nonbloody. One time was after [place] food. No screening colonoscopies are pending. Review of Systems Gastrointestinal: Positive for diarrhea. All other systems reviewed and are negative. 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 HENT: Head: Normocephalic and atraumatic. Right Ear: External ear normal. Left Ear: External ear normal. Nose: Nose normal. Mouth/Throat: Mouth: Mucous membranes are moist. Pharynx: Oropharynx is clear. Eyes: Extraocular Movements: Extraocular movements intact. Conjunctiva/sclera: Conjunctivae normal. Pupils: Pupils are equal, round, and reactive to light. Cardiovascular: Rate and Rhythm: Normal rate and regular rhythm. Pulmonary: Effort: Pulmonary effort is normal. Breath sounds: Normal breath sounds. Abdominal: Palpations: Abdomen is soft. Tenderness: There is no abdominal tenderness. Musculoskeletal: General: Normal range of motion. Cervical back: Normal range of motion. Skin: General: Skin is warm and dry. Neurological: General: No focal deficit present. Mental Status: She is alert. Psychiatric: Mood and Affect: Mood normal. Behavior: Behavior normal. Thought Content: Thought content normal. Performance Status: Asymptomatic Results from last 7 days Lab Units 12/22/24 1021 WBC AUTO x10*3/uL 5.0 HEMOGLOBIN g/dL 15.2 HEMATOCRIT % 46.4* PLATELETS AUTO x10*3/uL 260 NEUTROS PCT AUTO % 37.9 LYMPHS PCT AUTO % 48.8 MONOS PCT AUTO % 8.3 EOS PCT AUTO % 4.0 Tryptase level pending Assessment/Plan We reviewed that blood counts remain normal but that diarrhea can be a systemic manifestation of mastocytosis. If it recurs, she will let us know and will check stool studies to rule out infection. If another colonoscopy is indicated, would request random biopsies to r/o GI involvement. Pt also has h/o abnormal T cell population by flow cytometry, which has resolved. Cutaneous Mastocytosis: - Yearly FUV for evaluation of CBC, systemic symptoms - Last tryptase nl in 2018 - PB Myeloid NGS for c-kit neg in 2023 - Consider BMBx, bronchoscopy, colonoscopy for any new concern for systemic involvement Follow up yearly unless concerns arise sooner. Lisa Mckeon MD PhD FUV completed. POC reviewed with pt. who verbalizes understanding per teach back method. Pt given stool collection supplies and education provided for stool collection, in case diarrhea returns. Pt will MyChart message if she needs to collect sample so orders can be placed at that time. Pt agreeable to call our office for any questions, issues, or concerns. Next FUV with Dr Mckeon in 12 months. Pt to scheduling prior to discharge from office. documented in this encounter [facility] Work Phone: 10-13-2024 History of Present illness Narrative María Musa is a 69 y.o. female who presents for the following: Skin Check. 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 Spangler. This was biopsied and diagnosed at her Full Skin Exam appt 11/19/23. She also has urticaria pigmentosa Intake Questions Do you have any new or changing Lesions?: No Are you an organ transplant recipient?: No Have you had or do you have a Staph Infection?: No Have you had or do you have Vacular Disease?: No Do you use sunscreen?: Daily Do you use a tanning bed?: No Are you trying to get ?: No Are you on control?: No Do you have irregular menstrual cycles?: No Review of Systems: No other skin or systemic complaints other than what is documented elsewhere in the note. The following portions of the chart were reviewed this encounter and updated as appropriate: Tobacco Allergies Meds Problems Med Hx Surg Hx Skin Cancer History Biopsy Log Book Biopsied Type Location Status 11/19/23 Melanoma in Situ Left Forearm - Posterior Treatment Complete 12/06/23 Additional History Specialty Problems Dermatology Problems Cutaneous mastocytosis Urticaria pigmentosa diagnosed by skin biopsy by outside derm [facility] around age [age] years old - no systemic disease, has followed with Dr. 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 A full examination was performed including scalp, head, eyes, ears, nose, lips, neck, chest, axillae, abdomen, back, buttocks, bilateral upper extremities, bilateral lower extremities, hands, feet, fingers, toes, fingernails, and toenails. All findings within normal limits unless otherwise noted below. Assessment/Plan Skin Exam 1. MULTIPLE BENIGN NEVI Generalized Brown and martines macules and papules with reassuring findings on dermoscopy -These lesions have benign, reassuring patterns on dermoscopy -Recommend continued self observation, and to contact the office if any changes in nevi are noticed 2. LENTIGO Generalized Martines macules -Benign appearing on exam -Reassurance, recommend observation 3. SEBORRHEIC KERATOSIS Generalized Stuck on, waxy macule(s)/papule(s)/plaque(s) with comedo-like openings and milia like cysts -Discussed the nature of the diagnosis -Reassurance, recommend continued observation 4. ACTINIC SKIN DAMAGE Generalized Background of photodamage with hyper- and hypo-pigmented macules on the skin 5. FAMILY HISTORY OF SKIN CANCER Generalized Melanoma - sister, calf 6. PERSONAL HISTORY OF MALIGNANT MELANOMA OF SKIN Generalized Lymph node basins palpated in relevant regions without appreciable adenopathy; regions include the neck and/or supraclavicular and/or axillary and/or inguinal and/or popliteal skin. Personal History of Malignant Melanoma - Melanoma in situ of left forearm s/p excision 12/06/23: The melanoma was growing eccentrically out of a lentigo: 2x4 mm dark brown oval-shaped macule at edge of medium brown patch. Pigment had irregular streaks -Well healed scar(s) with no evidence of recurrence -Discussed the need for regular full skin examinations in the office, and monthly self examinations at home -Discussed the need for annual ophthalmology exams with dilation -Discussed concerning lesions and when to return sooner if any changes noted in skin lesions. Patient verbalizes understanding. 7. SCREENING EXAM FOR SKIN CANCER Generalized As part of a routine Full Skin Exam, a genital examination with the presence of a gas line servicer was offered. The patient declined the exam and declined the gas line servicer. Full body skin exam - she likes to follow at for her skin cancer screenings, especially with her urticaria pigmentosa. She follows with her local derm for other skin issues -No lesions concerning for malignancy on the remainder the skin exam today - The ugly duckling sign was discussed. Monitor for any skin lesions that are different in color, shape, or size than others on body -Sun protection was discussed. Recommend SPF 30+, hats with brims, sun protective clothing, and avoiding sun exposure between 10 AM and 2 PM whenever possible -Recommend regular skin exams or sooner if new or changing lesions Related Procedures Follow Up In Dermatology - Established Patient Follow Up In Dermatology - Established Patient 8. URTICARIA PIGMENTOSA Generalized Several small pink-brown papules mostlyon legs and trunk Asymptomatic, declines therapy Has epi pen Follows with Dr. Mckeon in [facility] for annual labs, next visit 10/2024 9. PSORIASIS OF NAIL Left Hand - Posterior, Right Hand - Posterior - new problem in the last few months - following with her local bladder changer at [facility] - clippings were done to assess for fungal infection which she reports were negative - she has follow up Follow up 1 year Full Skin Exam documented in this encounter [facility] Work Phone: 10-13-2024 Instructions Yuliana Alejandra MD - 10/13/2024 11:30 AM EDT Quick-tips on sun protection Make sure it is SPF 30 or higher. Apply on the face every morning with your morning facial lotion. Apply to the face again and anywhere else on sun-exposed skin every time you go outside and reapply every 2 hours. Technically speaking wethink mineral sunscreens are safest, but they are thicker and a little harder to put on. So the sun screen you will use is the best to use. It is good to have a mix - have a mineral sunscreen, have a non-mineral sunscreen, have lotions, have sprays, have sticks. Pick the one you want for the activity you are doing and the clothing you are wearing Use sun protective clothing to supplement. The outdoor clothing companies make really good ones - [employer], [employer], [employer], [employer] seem to be fan favorites The best hats are ones with a broad brim that will cover your ears, neck, and lower face. documented in this encounter [facility] Work Phone: 08-19-2024 Evaluation + Plan note Associated Problem(s): GERD (gastroesophageal reflux disease) Orders: Follow Up In Primary Care - Established pantoprazole (ProtoNix) 40 mg EC tablet; Take 1 tablet (40 mg) by mouth once daily. 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 Orders: Follow Up In Primary Care - Established Follow Up In Primary Care; Future [facility] Work Phone: 08-19-2024 Evaluation + Plan note Associated Problem(s): Impaired glucose tolerance Orders: Follow Up In Primary Care - Established Follow Up In Primary Care; Future CBC; Future Comprehensive Metabolic Panel; Future Lipid Panel; Future [facility] Work Phone: 08-19-2024 Evaluation + Plan note Associated Problem(s): Vitamin B12 deficiency Orders: Follow Up In Primary Care - Established Follow Up In Primary Care; Future cyanocobalamin (Vitamin B-12) injection 1,000 mcg [facility] Work Phone: 08-19-2024 Evaluation + Plan note Associated Problem(s): Osteopenia Orders: Follow Up In Primary Care - Established ergocalciferol (Vitamin D-2) 1250 mcg (50,000 units) capsule; Take 1 capsule (1.25 mg) by mouth 1 (one) time per week. 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 female here for a Medicare Wellness visit. Past Medical, Surgical, and Family History reviewed and updated in chart. Reviewed all medications by prescribing practitioner or clinical pharmacist (such as prescriptions, OTCs, herbal therapies and supplements) and documented in the medical record. HPI.I Since the last office visit there have been no interval operations, hospitalizations, important illnesses or injuries except for both a Dental implant and Melanoma surgery in November 2023 had an abnormal microscopic appearance and it most is a melanoma in situ. Large local excision accomplished Hyperlipidemia- is on a statin and a prudent diet. GERD-Takes PPI daily with no breakthrough symptoms. Reviewed dietary, caffeine, tobacco, alcohol, and NSAID avoidance. No dyspepsia, dysphagia, reflux, melena, or abdominal pain. To cont b12 shot for compliance, as does not remember to take pills Patient Care Team: Tamara Ha MD as PCP - General Tamara Ha MD as PCP - [employer] Medicare Advantage PCP Lisa Mckeon MD PhD as Consulting Physician (Hematology and Oncology) Review of Systems General-no fatigue weight to within 10 pounds ENT no problems with vision swallowing Cardiac no chest pains palpitations change in exercise tolerance or capacity Pulmonary no cough shortness of breath GI no heartburn or abdominal pain Musculoskeletal no joint pains Objective Vitals: BP 138/80 Pulse 75 Wt 64 kg (141 lb) SpO2 98% BMI 26.79 kg/m Physical Exam General: Alert, No acute distress. Appears stated age Eye: Pupils are equal, round and reactive to light, Extraocular movements are intact, Normal conjunctiva. Neck: Supple, Non-tender, No carotid bruit, No jugular venous distention, No lymphadenopathy, No thyromegaly. Respiratory: Lungs are clear to auscultation, Respirations are non-labored, Breath sounds are equal. Cardiovascular: Normal rate, Regular rhythm, No murmur. Gastrointestinal: Soft, Non-tender, No organomegaly. No solid or pulsatile mass Integumentary: Warm, Dry. No concerning lesions on exposed areas Neurologic: Alert, Oriented. Gross and fine motor intact, CN 2-12 intact Psychiatric: Cooperative, Appropriate mood & affect. Assessment & Plan Routine general medical examination at health care facility Orders: 1 Year Follow Up In Primary Care - Wellness Exam; Future Follow Up In Primary Care; Future Gastroesophageal reflux disease without esophagitis Orders: Follow Up In Primary Care - Established pantoprazole (ProtoNix) 40 mg EC tablet; Take 1 tablet (40 mg) by mouth once daily. Follow Up In Primary Care; Future Atherosclerosis 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 Orders: Follow Up In Primary Care - Established Follow Up In Primary Care; Future Impaired glucose tolerance Orders: Follow Up In Primary Care - Established Follow Up In Primary Care; Future CBC; Future Comprehensive Metabolic Panel; Future Lipid Panel; Future Vitamin B12 deficiency Orders: Follow Up In Primary Care - Established Follow Up In Primary Care; Future cyanocobalamin (Vitamin B-12) injection 1,000 mcg Osteopenia, unspecified location Orders: Follow Up In Primary Care - Established ergocalciferol (Vitamin D-2) 1250 mcg (50,000 units) capsule; Take 1 capsule (1.25 mg) by mouth 1 (one) time per week. 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 NO COMPLICATIONS LOT [id number] EXP. 10/15 MDS documented in this encounter [facility] Work Phone: 08-19-2024 Miscellaneous Notes Associated Problem(s): GERD (gastroesophageal reflux disease) Orders: Follow Up In Primary Care - Established pantoprazole (ProtoNix) 40 mg EC tablet; Take 1 tablet (40 mg) by mouth once daily. Follow Up In Primary Care; Future Associated Problem(s): Atherosclerosis 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 Orders: Follow Up In Primary Care - Established Follow Up In Primary Care; Future Associated Problem(s): Impaired glucose tolerance Orders: Follow Up In Primary Care - Established Follow Up In Primary Care; Future CBC; Future Comprehensive Metabolic Panel; Future Lipid Panel; Future Associated Problem(s): Vitamin B12 deficiency Orders: Follow Up In Primary Care - Established Follow Up In Primary Care; Future cyanocobalamin (Vitamin B-12) injection 1,000 mcg Associated Problem(s): Osteopenia Orders: Follow Up In Primary Care - Established ergocalciferol (Vitamin D-2) 1250 mcg (50,000 units) capsule; Take 1 capsule (1.25 mg) by mouth 1 (one) time per week. 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 Orders: Follow Up In Primary Care; Future Associated Problem(s): Combined hyperlipidemia Orders: Follow Up In Primary Care; Future CBC; Future Comprehensive Metabolic Panel; Future Lipid Panel; Future documented in this encounter [facility] Work Phone: 12-06-2023 History of Present illness Narrative Melanoma Excision Consult Note Date of Surgery: 12/06/2023 Surgeon: Mirza Spangler MD Office Location: [facility] [place] [id number] [facility] [address] [facility] [address] Dept: [phone] Dept Referring Provider: Yuliana Alejandra MD [address] [place] [address] Dr [facility] [address] [place] [address] Subjective Urbano Musa is a 68 y.o. female who presents for the following: Excision for atypical junctional melanocytic proliferation concerning for melanoma in situ on the left forearm-posterior. According to the patient, the lesion has been present for approximately greater than 1 year at the time of diagnosis. The lesion is not causing symptoms. The lesion has not been treated previously. The patient does not have a pacemaker / defibrillator. The patient does have a heart valve / joint replacement. The patient is not on blood thinners. The following portions of the chart were reviewed this encounter and updated as appropriate: Review of Systems: No other skin or systemic complaints other than what is documented elsewhere in the note. Medical History: Clinically relevant history including significant past medical history, review of systems, medications and allergies was reviewed and is documented in Epic. Objective Well appearing patient in no apparent distress; mood and affect are within normal limits. Vital signs: See record. Noted on the Left Forearm - Posterior Is a 0.5 x 0.5 cm scar The patient confirmed the identified site. Discussion: The nature of the diagnosis was explained. The lesion is concerning for an early melanoma but is likely to have been present for >1 year and is likely to progress without treatment. The multidisciplinary cutaneous oncology tumor board report was reviewed with the patient and surgery is recommended. Surgery was recommended and discussed with the patient. The risks, benefits and potential adverse effects were reviewed and the patient voiced understanding. Discussion included but was not limited to the risks of bleeding and infection, likely scar outcome, possible need for revision surgery, cure rate, wound care requirements, activity restrictions and time to heal. Reconstruction options, risks and benefits were reviewed including second intention healing and linear repair (4-1 ratio was explained). It was explained that the scar would be longer than the original lesion. Medical Decision Making: Column 1 - chronic illness with progression Column 2 - category 3: discussion of management with external physicians (multidisciplinary tumor board) Column 3 - decision regarding minor surgery with identified risk factors (bleeding, infection, scarring) Images from the original note were not included. Excision Operative Note Date of Surgery: 12/06/2023 Surgeon: Mirza Spangler MD Office Location: [place] [id number] [facility] [address] [facility] [address] Dept: [phone] Dept Referring Provider: Yuliana Alejandra MD [address] [place] [address] [facility] [address] [place] [address] [facility] Urbano Musa is a 68 y.o. female who presents for the following: Excision for atypical junctional melanocytic proliferation concerning for melanoma in situ on the left forearm-posterior. According to the patient, the lesion has been present for approximately greater than 1 year at the time of diagnosis. The lesion is not causing symptoms. The lesion has not been treated previously. The patient does not have a pacemaker / defibrillator. The patient does have a heart valve / joint replacement. The patient is not on blood thinners. The patient does not have a history of hepatitis B or C. The patient does not have a history of HIV. The patient does not have a history of immunosuppression (e.g. organ transplantation, malignancy, medications) Is it okay to leave a phone message with results? Yes - cell phone Who else may we leave results with: (name, relationship) n/a The following portions of the chart were reviewed this encounter and updated as appropriate: Assessment/Plan Pre-procedure: Obtained informed consent: written from patient The surgical site was identified and confirmed with the patient. Intra-operative: Audible time out called at : 1:52 PM 12/06/23 by: TOMASZ TAO RN Verified patient name, birthdate, site, specimen bottle label & requisition. The planned procedure(s) was again reviewed with the patient. The risks of bleeding, infection, nerve damage and scarring were reviewed. The patient identity, surgical site, and planned procedure(s) were verified. Biopsy Accession Number: [id number] Melanoma in situ of left upper arm (Multi) Left Forearm - Posterior Skin excision Lesion length (cm): 0.5 Lesion width (cm): 0.5 Margin per side (cm): 1 Total excision diameter (cm): 2.5 Breslow depth (mm): melanoma in situ. Informed consent: discussed and consent obtained Timeout: patient name, date of , surgical site, and procedure verified Procedure prep: Patient was prepped and draped Anesthesia: the lesion was anesthetized in a standard fashion Anesthetic: 1% lidocaine w/ epinephrine 1-100,000 local infiltration Instrument used: #15 blade Hemostasis achieved with: electrodesiccation Outcome: patient tolerated procedure well with no complications Post-procedure details: sterile dressing applied and wound care instructions given Dressing type: pressure dressing, Hypafix and Prashant wrap Additional details: Melanoma Barney: Curative Intent: Yes Original Breslow Thickness: melanoma in situ Clinical margin width: 1 cm Depth of excision: Full thickness Skin repair Complexity: Intermediate Final length (cm): 6.4 Informed consent: discussed and consent obtained Timeout: patient name, date of , surgical site, and procedure verified Procedure prep: Patient prepped in sterile fashion Anesthesia: the lesion was anesthetized in a standard fashion Anesthetic: 1% lidocaine w/ epinephrine 1-100,000 local infiltration Reason for type of repair: reduce tension to allow closure Undermining: edges undermined Subcutaneous layers (deep stitches): Suture size: 4-0 Suture type: Vicryl (polyglactin 910) Stitches: Buried vertical mattress Fine/surface layer approximation (top stitches): Suture size: 4-0 Suture type: Prolene (polypropylene) Stitches: simple running Suture removal (days): 7 Hemostasis achieved with: electrodesiccation Outcome: patient tolerated procedure well with no complications Post-procedure details: sterile dressing applied and wound care instructions given Dressing type: pressure dressing Staff Communication: Dermatology Local Anesthesia: 1 % Lidocaine / Epinephrine - Amount: 20cc Specimen 1 - Dermatopathology- DERM LAB Differential Diagnosis: MIS [id number] Check Margins Yes/No?: yes Comments: 1 cm margins. Indication stitch at proximal tip Dermpath Lab: Routine Histopathology (formalin-fixed tissue) Intermediate Linear Repair: Given the location and size of the defect, it was determined that an intermediate layered linear closure was required to restore normal anatomy and function. The repair is an intermediate closure as two layers of sutures were required. The defect was undermined extensively at the level of the subcutaneous plane. Standing cutaneous cones were removed using Burow's triangles. The wound edges were brought into close approximation with buried vertical mattress sutures. The remainder of the wound was then closed with epidermal top sutures. The final repair measured 6.4 cm Wound care was discussed, and the patient was given written post-operative wound care instructions. The patient will follow up with Mirza Spangler MD as needed for any post operative problems or concerns, and will follow up with their primary bladder changer as scheduled. documented in this encounter [facility] Work Phone: 08-19-2023 History of Present illness Narrative Subjective Patient ID: Urbano Musa is a 68 y.o. female who presents for Medicare Annual Wellness Visit Subsequent (Rev labs). HPI Since the last office visit there have been no interval operations, hospitalizations, important illnesses or injuries. Nno tob, <2 etoh GERD-Takes PPI daily with occ breakthrough symptoms. Reviewed dietary, caffeine, tobacco, alcohol, and NSAID avoidance. No dyspepsia, dysphagia, reflux, melena, or abdominal pain. Hyperlipidemia- is on a statin and a prudent diet. CAD- stable , no angina Hyperlipidemia- is on a statin and a prudent diet. IGT stable Osteopenia Review of Systems General-no fatigue weight to within 10 pounds ENT no problems with vision swallowing Cardiac no chest pains palpitations change in exercise tolerance or capacity Pulmonary no cough shortness of breath GI no heartburn or abdominal pain Musculoskeletal no joint pains Objective BP 142/70 Pulse 79 Ht 1.545 m (5' 0.83) Wt 65.4 kg (144 lb 3.2 oz) SpO2 97% BMI 27.40 kg/m Physical Exam General: Alert, No acute distress. Appears stated age Eye: Pupils are equal, round and reactive to light, Extraocular movements are intact, Normal conjunctiva. Neck: Supple, Non-tender, No carotid bruit, No jugular venous distention, No lymphadenopathy, No thyromegaly. Respiratory: Lungs are clear to auscultation, Respirations are non-labored, Breath sounds are equal. Cardiovascular: Normal rate, Regular rhythm, No murmur. Gastrointestinal: Soft, Non-tender, No organomegaly. No solid or pulsatile mass Integumentary: Warm, Dry. No concerning lesions on exposed areas Neurologic: Alert, Oriented. Gross and fine motor intact, CN 2-12 intact Psychiatric: Cooperative, Appropriate mood & affect. Assessment/Plan Problem List Items Addressed This Visit ICD-10-CM Atherosclerosis 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 I25.10 Relevant Orders Follow Up In Primary Care - Established CBC Comprehensive Metabolic Panel Lipid Panel GERD (gastroesophageal reflux disease) K21.9 Relevant Medications pantoprazole (ProtoNix) 40 mg EC tablet Other Relevant Orders Follow Up In Primary Care - Established Impaired glucose tolerance R73.02 Relevant Orders Follow Up In Primary Care - Established CBC Osteopenia M85.80 Relevant Medications ergocalciferol (Vitamin D-2) 1.25 MG (06771 UT) capsule (Start on 08/25/2023) Other Relevant Orders Follow Up In Primary Care - Established CBC Vitamin B12 deficiency E53.8 Relevant Medications cyanocobalamin (Vitamin B-12) injection 1,000 mcg (Completed) Other Relevant Orders Follow Up In Primary Care - Established Other Visit Diagnoses Codes Routine general medical examination at health care facility - Primary Z00.00 INJECTED 1 ML B12 IM, R DELTOID. NO COMPLICATIONS LOT [id number] EXP. 12/2024 MDS documented in this encounter [facility] Work Phone: 08-13-2023 History of Present illness Narrative Patient ID: Urbano Musa is a 68 y.o. female. Subjective Pt presents today for yearly follow up. She has been doing well without any changes to her overall health. She reports sinus congestion and cough for the last month after she and her got over a cold and laryngitis. She continues to notice transient spots over her chest and abdomen after shower (or on the tops of her feet after sun exposure). She has some lesions that are permanent; they are all sub-cm, violaceous, flat, asymptomatic. Review of Systems All other systems reviewed and are negative. 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 HENT: Head: Normocephalic and atraumatic. Right Ear: External ear normal. Left Ear: External ear normal. Nose: Nose normal. Mouth/Throat: Mouth: Mucous membranes are moist. Pharynx: Oropharynx is clear. Eyes: Extraocular Movements: Extraocular movements intact. Conjunctiva/sclera: Conjunctivae normal. Pupils: Pupils are equal, round, and reactive to light. Cardiovascular: Rate and Rhythm: Normal rate and regular rhythm. Pulmonary: Effort: Pulmonary effort is normal. Breath sounds: Normal breath sounds. Abdominal: Palpations: Abdomen is soft. Tenderness: There is no abdominal tenderness. Musculoskeletal: General: Normal range of motion. Cervical back: Normal range of motion. Skin: General: Skin is warm and dry. Neurological: General: No focal deficit present. Mental Status: She is alert. Psychiatric: Mood and Affect: Mood normal. Behavior: Behavior normal. Thought Content: Thought content normal. Performance Status: Asymptomatic Labs reviewed; polycythemia noted last year has resolved. 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 Tryptase nl in 2019. No BMBx or PB NGS performed to date. Pt also has h/o abnormal T cell population by flow cytometry, which has resolved. Cutaneous Mastocytosis: - Yearly FUV for evaluation of CBC, systemic symptoms - Myeloid NGS for c-kit Follow up yearly Oncology History Overview Note UP dx by skin bx around age 40. Pt states that the cutaneous lesions are flat, purplish, and predominantly affect her torso but sometimes extend to her hips. She denies flushing, diarrhea, and cough (except related to GERD). Lesions are not bothersome. They are triggered by heat (shower or hot weather). They don't seem to be behaving differently over time. Cutaneous mastocytosis 08/14/2023 Initial Diagnosis Cutaneous mastocytosis Lisa Mckeon MD PhD documented in this encounter [facility] Work Phone: 02-20-2023 Note HNO ID: [id number] Author: Mart Raines MD Service: ? Author Type: Physician Type: Progress Notes Filed: 02/20/2023 9:01 AM Note Text: Patient presents with: Ear Problem: Bilateral ears clogged x 2 weeks HPI: Feeling ears are clogged for 2 weeks. Positive symptoms: decreased hearing, Negative symptoms: Cough, Earache, Sinus pressure, Nasal Congestion, Fever, OTC: ear drops, OTC irrigation, uses qtips MEDICATIONS: Current Outpatient Medications Medication Sig pantoprazole DR (PROTONIX) 20 mg tablet Take by mouth. atorvastatin (LIPITOR) 40 mg tablet EPINEPHrine (EPIPEN) 0.3 mg/0.3 mL auto-injector ergocalciferol, vitamin D2, 50,000 unit capsule Take 1 capsule by mouth once each week. calcium carbonate ([id number])(TUMS 500 MG CHEWABLE TAB) one twice a day ACIPHEX 20 MG TAB as needed No current facility-administered medications for this visit. ALLERGIES: ALLERGIES Allergen Reactions Penicillins Itching swelling Sulfa (Sulfonamide * Itching swelling VITALS: BP 142/94 Pulse 76 Temp 36.1 ?C (97 ?F) Resp 21 Wt 65.1 kg (143 lb 9.6 oz) SpO2 98% PHYSICAL EXAM: GEN: Pleasant, in no acute distress. HEENT: PERRL, EOMI, conjunctiva clear Ears: proximal impaction with yellow-white debris right canal, partial impaction left canal. TMs without erythema, bulge, or effusion after removal Sinuses: non-tender frontal sinus, non-tender maxillary sinuses Throat: moist mucous membranes, no erythema, no exudate Neck: supple, no thyromegaly, no lymphadenopathy HEART: regular rate and rhythm, no murmurs LUNGS: clear to auscultation, no wheezes or crackles, no increased WOB ASSESSMENT/PLAN: 1. Bilateral impacted cerumen - ICD9: 380.4, ICD10: H61.23 Successful removal of impaction by staff lavage. Few small thin translucent adherent sheets in both canals. TMs clear after procedure. Right ear muffled hearing improved. - AMBULATORY EAR LAVAGE/IRRIGATION Mart Raines MD [facility] 10-25-2022 History of Present illness Narrative Subjective Patient ID: Urbano Musa is a 67 y.o. female who presents for Rash (Redness, itchy. Mid torso). HPI 2d noted a red lesion on the left back just above the belt line. It is increased each day and is now 8 cm across. Pruritic but not painful Review of Systems No fever chills nausea vomiting Objective BP 110/70 Pulse 85 Ht 1.524 m (5') Wt 64 kg (141 lb 1.6 oz) SpO2 97% BMI 27.56 kg/m Physical Exam On the lateral aspect of the left lumbar region just above the belt line there is an 8 cm area of erythema. A 1 cm area of more intense erythema in the center. There is no lymphangitis. Differential is immunologic reaction versus cellulitis. With it not being painful I and the intense pruritus 10 I would tend to think it is more than immunologic. Assessment/Plan Problem List Items Addressed This Visit None Visit Diagnoses Cellulitis of back except buttock - Primary Relevant Medications doxycycline (Vibramycin) 100 mg capsule predniSONE (Deltasone) 10 mg tablet documented in this encounter [facility] Work Phone: 08-16-2022 History of Present illness Narrative Subjective Patient ID: Urbano Musa is a 67 y.o. female who presents for Follow-up (6 mo fu rev labs , b12 injection ). HPI Since the last office visit there have been no interval operations, hospitalizations, important illnesses or injuries. GERD-Takes PPI daily with no breakthrough symptoms. Reviewed dietary, caffeine, tobacco, alcohol, and NSAID avoidance. No dyspepsia, dysphagia, reflux, melena, or abdominal pain. Cad-on coronary CT with a total score under 100. Hyperlipidemia- is on a statin and a prudent diet. Had Medicare wellness in January is followed up in 6 months at this time for A1c which is improved to 6.1 we really only need to see her once a year so she wellness Medicare wellness for 2022 for [facility] for [place] [facility] Review of Systems General-no fatigue weight to within 10 pounds ENT no problems with vision swallowing Cardiac no chest pains palpitations change in exercise tolerance or capacity Pulmonary no cough shortness of breath GI no heartburn or abdominal pain Musculoskeletal no joint pains Objective BP 130/78 Pulse 82 Ht 1.524 m (5') Wt 65.1 kg (143 lb 8 oz) SpO2 97% BMI 28.03 kg/m Physical Exam General: Alert, No acute distress. Appears stated age Eye: Pupils are equal, round and reactive to light, Extraocular movements are intact, Normal conjunctiva. Neck: Supple, Non-tender, No carotid bruit, No jugular venous distention, No lymphadenopathy, No thyromegaly. Respiratory: Lungs are clear to auscultation, Respirations are non-labored, Breath sounds are equal. Cardiovascular: Normal rate, Regular rhythm, No murmur. Gastrointestinal: Soft, Non-tender, No organomegaly. No solid or pulsatile mass Integumentary: Warm, Dry. No concerning lesions on exposed areas Neurologic: Alert, Oriented. Gross and fine motor intact, CN 2-12 intact Psychiatric: Cooperative, Appropriate mood & affect. Assessment/Plan Problem List Items Addressed This Visit Circulatory Atherosclerosis 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 Relevant Orders CBC Comprehensive Metabolic Panel Lipid Panel Follow Up In Primary Care Digestive GERD (gastroesophageal reflux disease) - Primary Relevant Medications pantoprazole (ProtoNix) 40 mg EC tablet Other Relevant Orders Follow Up In Primary Care Musculoskeletal Osteopenia Relevant Medications ergocalciferol (Vitamin D-2) 1.25 MG (06900 UT) capsule Other Relevant Orders Follow Up In Primary Care Endocrine/Metabolic Impaired glucose tolerance Relevant Orders Follow Up In Primary Care Vitamin B12 deficiency Relevant Orders Follow Up In Primary Care INJECTED 1 ML B12 IM, RT DELTOID. NO COMPLICATIONS LOT 2258 EXP. 10/2023 MDS documented in this encounter [facility] Work Phone: 08-14-2022 Note Clinic Note: Education Assessment: Learning BarriersNo barriers TaughtPatient, Spouse Primary Language of PatientEnglish Primary Language of Dickens LearnerEnglish Clinic Visit: Topic(s): Clinic VisitFollow-up plan, How to reach your doctor MethodVerbal, Teach-Back, Handout EvaluationTeaches back, States general concept Handout(s) GivenHow to reach your doctor Electronic Signatures: Serena Schwarz (RN) (Signed 14-Aug-2022 13:39) Authored: Education Assessment, Clinic Visit Last Updated: 14-Aug-2022 13:39 by Serena Schwarz ([email or web address]) [facility] 06-11-2022 History of Present illness Narrative Images from the original note were not included. NEW Patient Visit Mallory Crawford DPM Patient Name: Urbano Musa. . Date of : 1955, 67 y.o.. Gender: female. Subjective: Patient is a pleasant 67-year-old female who presents to clinic complaining of right foot pain that has been ongoing for 2 months. Patient stated the pain is in the first metatarsophalangeal right and she feels a bony prominence on the top of it. Patient states that she wears flip-flops and [place] but also some tennis shoes. States that she was no the cause and how to avoid making it worse. No other pedal complaints at this time. Denies fevers, chills, nausea, vomiting, chest pain, shortness of breath, or any other constitutional symptoms. Past Medical History: Diagnosis Date Disease of thyroid gland GERD (gastroesophageal reflux disease) High cholesterol Past Surgical History: Procedure Laterality Date CARPAL TUNNEL RELEASE Right SECTION, CLASSIC KNEE SURGERY partial Left - total right Social History Socioeconomic History Marital status: Tobacco Use Smoking status: Never Smokeless tobacco: Never Vaping Use Vaping Use: Never used Substance and Sexual Activity Alcohol use: Yes Drug use: Never Physical Examination: BP (!) 158/89 (BP Location: Right arm, Patient Position: Sitting, BP Cuff Size: Adult) Pulse 84 Temp 98.4 F (36.9 C) (Infrared) General Appearance: Alert, cooperative, no distress, appears stated age. Podiatric Exam Vascular: DP and PT pulses are palpable 2/4. Capillary refill time is less than 3 secs to distal digits. Skin temperature is warm to warm from proximal tibial tuberosity to distal digit. Neurological: Gross sensation is intact. Protective sensation is intact. Dermatologic: No preulcerative lesions. Nails are within normal limits. Interdigital spaces are clean dry and intact. Musculoskeletal: Pain on palpation to the dorsal first metaphalangeal joint, right foot. First MPJ range of motion is limited in flexion and plantarflexion. No appreciable crepitus noted. Pain with range of motion. Ankle joint range of motion is intact. Muscle strength is 5/5 to dorsiflexors, plantar flexors, inverters and everters. Compartments soft and compressible. No calf pain. Mild generalized tenderness on palpation subfirst, second, third, fourth and fifth metatarsal heads, bilaterally. Diagnoses: 1. Primary osteoarthritis of right foot Miscellaneous DME Equipment 2. Metatarsalgia of both feet Miscellaneous DME Equipment Imaging: Right foot 3 views weightbearing radiographs were ordered and interpreted as follows: Joint space narrowing noted to the first metatarsophalangeal joint. Subchondral sclerosis noted to the base of the proximal phalanx of hallux. Dorsal flag sign noted to the first metatarsal head. Assessment/Plan: Patient was seen and evaluated. Discussed all clinical findings. I ordered, interpreted, and discussed right foot radiographic findings with patient as noted above. Patient has osteoarthritis of the right foot and metatarsalgia to bilateral. Discussed conservative options consisting of wearing stiff supportive tennis shoes, anti-inflammatories, steroid injections, etc. Patient is to avoid barefoot walking, flip-flops, flexible shoe gear. A prescription for custom molded orthotics with a Candelario's extension to the right foot provided to the patient. Patient leaving to [place] in 5 days and will call back as needed. All questions were answered to patient satisfaction. Patient understands to call with any questions or concerns. This note was partially created using voice recognition software and is inherently subject to errors including those of syntax and sound-alike substitutions which may escape proofreading. In such instances, original meaning may be extrapolated by contextual derivation. Mallory Crawford DPM, MS Podiatric Physician & Surgeon documented in this encounter [facility] Evaluation note No assessment inform ation available [facility] Work Phone: Evaluation note Diagnosis Onset Date Autoimmune thyroiditis acute Osteopenia acute Prediabetes acute Vitamin D deficiency acute [facility] Work Phone: Evaluation note* Diagnosis Primary osteoarthritis of right foot- Primary Metatarsalgia of both feet [facility] Gastroesophageal reflux disease without esophagitis- Primary Esophageal reflux Atherosclerosis 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 Impaired glucose tolerance Impaired glucose tolerance test Vitamin B12 deficiency Other B-complex deficiencies Osteopenia, unspecified location documented in this encounter [facility] Work Phone: Evaluation note* Diagnosis Cellulitis of back except buttock- Primary documented in this encounter [facility] Work Phone: Evaluation noteN/[facility]ept. 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 documented in this encounter [facility] Work Phone: Evaluation note* Diagnosis Routine general medical examination at health care facility- Primary Routine general medical examination at a health care facility Gastroesophageal reflux disease without esophagitis Esophageal reflux Atherosclerosis 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 Impaired glucose tolerance Impaired glucose tolerance test Vitamin B12 deficiency Other B-complex deficiencies Osteopenia, unspecified location documented in this encounter [facility] Work Phone: Evaluation note* Diagnosis Melanoma in situ of left upper arm (Multi) documented in this encounter [facility] Work Phone: Evaluation note* Diagnosis Routine general medical examination at health care facility- Primary Routine general medical examination at a [facility] care [facility] Gastroesophageal reflux disease without esophagitis Esophageal reflux Atherosclerosis 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 Impaired glucose tolerance Impaired glucose tolerance test Vitamin B12 deficiency Other B-complex deficiencies Osteopenia, unspecified location 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 Combined hyperlipidemia Other and unspecified hyperlipidemia documented in this encounter [facility] Work Phone: Evaluation note* Diagnosis Routine general medical examination at health care facility- Primary Routine general medical examination at a [facility] facility Gastroesophageal reflux disease without esophagitis Esophageal reflux Atherosclerosis 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 Impaired glucose tolerance Impaired glucose tolerance test Vitamin B12 deficiency Other B-complex deficiencies Osteopenia, unspecified location 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 Combined hyperlipidemia Other and unspecified hyperlipidemia Multiple benign nevi- Primary Lentigo Other dyschromia Seborrheic keratosis Actinic skin damage Family history of skin cancer Family history of other specified malignant neoplasm Personal history of malignant melanoma of skin Screening exam for skin cancer Screening for malignant neoplasm of the skin 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 Psoriasis of nail Other psoriasis documented in this encounter [facility] Work Phone: Evaluation note* Diagnosis Routine general medical examination at [facility] care facility- Primary Routine general medical examination at a [facility] Gastroesophageal reflux disease without esophagitis Esophageal reflux Atherosclerosis 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 Impaired glucose tolerance Impaired glucose tolerance test Vitamin B12 deficiency Other B-complex deficiencies Osteopenia, unspecified location 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 * Past Medical, Surgical and Family History: reviewed and updated in chart. * Interval History: Patient has not been hospitalized previously. * Medications and Supplements: Medications and supplements, including calcium and vitamins reviewed and updated in chart. * No, the patient is not using opioids. * Patient Self Assessment of Health Status: good. * Tobacco use: Non-User * Alcohol use: User, As noted in social history 1/d. * Illicit drug use: Non-User * Current diet: well balanced diet. * Exercise Frequency: infrequently. * Depression/Suicide Screening: . * During the past 2 weeks, the patient has not felt down, depressed or hopeless. * During the past 2 weeks, the patient has not felt little interest or pleasure in doing things. * Hearing Impairment: none. * Cognitive Impairment: No cognitive impairment observed. * Bathing: performs independently. * Dressing: performs independently. * Walking: performs independently. * Toileting: performs independently. * Feeding: performs independently. * Personal Hygiene: performs independently. * Bowels: continent. * Bladder: continent. * Managing Finances: performs independently. * Shopping: performs independently. * Managing Medications: performs independently. * Housework / Basic Home Maintenance: performs independently. * Handling Transportation: performs independently. * Preparing Meals: performs independently. * Using the Telephone/ Communication Devices: performs independently. * Falls Risk Screening:. URBANO has not fallen in the last 6 months. * Home safety risk factors: no grab bars in the bathroom. * GERD-Takes PPI daily with once a month breakthrough symptoms. Reviewed dietary, caffeine, tobacco, alcohol, and NSAID avoidance. omep 20, wants to try alternate, rx protonix * gwen bucio 07-15-2020 * discussed preventtive cardio, IGT [facility] Work Phone: History of Present illness Narrative* The patient is being seen for the subsequent annual wellness visit. * Past Medical, Surgical and Family History: reviewed and updated in chart. * Interval History: Patient has not been hospitalized previously. * Medications and Supplements: Medications and supplements, including calcium and vitamins reviewed and updated in chart. * No, the patient is not using opioids. * Patient Self Assessment of Health Status: good. * Tobacco use: Non-User * Alcohol use: User, As noted in social history 1/d. * Illicit drug use: Non-User * Current diet: well balanced diet. * Exercise Frequency: infrequently. * Depression/Suicide Screening: . * During the past 2 weeks, the patient has not felt down, depressed or hopeless. * During the past 2 weeks, the patient has not felt little interest or pleasure in doing things. * Hearing Impairment: none. * Cognitive Impairment: No cognitive impairment observed. * Bathing: performs independently. * Dressing: performs independently. * Walking: performs independently. * Toileting: performs independently. * Feeding: performs independently. * Personal Hygiene: performs independently. * Bowels: continent. * Bladder: continent. * Managing Finances: performs independently. * Shopping: performs independently. * Managing Medications: performs independently. * Housework / Basic Home Maintenance: performs independently. * Handling Transportation: performs independently. * Preparing Meals: performs independently. * Using the Telephone/ Communication Devices: performs independently. * Falls Risk Screening:. URBANO has not fallen in the last 6 months. * Home safety risk factors: no grab bars in the bathroom. * GERD-Takes PPI daily with once a month breakthrough symptoms. Reviewed dietary, caffeine, tobacco, alcohol, and NSAID avoidance. omep 20, wants to try alternate, rx protonix * gwen bucio 07-15-2020 * discussed preventtive cardio, IGT [facility] Work Phone: reason for referral (narrative)* Consultation (Routine) - Authorized Specialty Diagnoses / Procedures Referred By Chapis canales Referred To Contact Primary Care Diagnoses Gastroesophageal reflux disease without esophagitis Atherosclerosis 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 Impaired glucose tolerance Vitamin B12 deficiency Osteopenia, unspecified location Procedures Follow Up In Primary Care Tamara Ha MD [address] [place] [address] Referral ID Status Reason Start Date Expiration Date V isits Requested Visits Authorized [id number] Authorized 08/16/2022 02/12/2023 1 1 T [facility] Work Phone: Reason for referral (narrative)* Name Reason for referral NA [facility] Reason for referral (narrative)No reason for referral [facility]: Assessments Diagnosis Right knee pain, unspecified chronicity - Primary Arthritis of right knee Diagnosis Arthritis of right knee - Pr imary Left knee pain, unspecified chronicity Primary osteoarthritis of shellie th knees Diagnosis Primary osteoarthritis of both knees- Primary Diagnosis Primary osteoarthritis of both knees- Primary History of Present Illness * Jose Richardson MD - 02/17/2018 5:10 PM EDT Dictation on: 02/17/2018 5:11 PM by: JOSE RICHARDSON [[id number]] in this encounter* Jose Richardson MD - 05/26/2018 6:08 PM EST Dictation on: 05/26/2018 6:08 PM by: JOSE RICHARDSON [[id number]] in this encounter* Jose Richardson MD - 09/29/2018 9:10 AM EDT Dictation on: 09/29/2018 9:12 AM by: JOSE RICHARDSON [[id number]] documented in this encounter Summary Purpose Family History No Family History Records Found Mother Name Dates Details No pertinent family history( V49.89, Z78.9) Status:Active Father Name Dates Details Family history of acute myoc ardial infarction(V17.3, Z82.49) Status:Active Family history of coronary a rtery disease(V17.3, Z82.49) Status:Active Family history of diabetes m ellitus(V18.0, Z83.3) Status:Active Family history of cardiac di sorder(V17.49, Z82.49) Status:Active Family history of hypertensi on(V17.49, Z82.49) Status:Active Family history of Pulmonary tuberculosis(011.90, A15.0) Status:Active Sister Name Dates Details Family history of malignant neoplasm of skin(V16.8, Z80.8) Status:Active Mother Name Dates Details No pertinent family history( V49.89, Z78.9) Status:Active Father Name Dates Details Family history of acute myoc ardial infarction(V17.3, Z82.49) Status:Active Family history of coronary a rtery disease(V17.3, Z82.49) Status:Active Family history of diabetes m ellitus(V18.0, Z83.3) Status:Active Family history of cardiac di sorder(V17.49, Z82.49) Status:Active Family history of hypertensi on(V17.49, Z82.49) Status:Active Family history of Pulmonary tuberculosis(011.90, A15.0) Status:Active Sister Name Dates Details Family history of malignant neoplasm of skin(V16.8, Z80.8) Status:Active Mother Name Dates Details No pertinent family history( V49.89, Z78.9) Status:Active Father Name Dates Details Family history of acute myoc ardial infarction(V17.3, Z82.49) Status:Active Family history of coronary a rtery disease(V17.3, Z82.49) Status:Active Family history of diabetes m ellitus(V18.0, Z83.3) Status:Active Family history of cardiac di sorder(V17.49, Z82.49) Status:Active Family history of hypertensi on(V17.49, Z82.49) Status:Active Family history of Pulmonary tuberculosis(011.90, A15.0) Status:Active Sister Name Dates Details Family history of malignant neoplasm of skin(V16.8, Z80.8) Status:Active Mother Name Dates Details No pertinent family history( V49.89, Z78.9) Status:Active Father Name Dates Details Family history of acute myoc ardial infarction(V17.3, Z82.49) Status:Active Family history of coronary a rtery disease(V17.3, Z82.49) Status:Active Family history of diabetes m ellitus(V18.0, Z83.3) Status:Active Family history of cardiac di sorder(V17.49, Z82.49) Status:Active Family history of hypertensi on(V17.49, Z82.49) Status:Active Family history of Pulmonary tuberculosis(011.90, A15.0) Status:Active Sister Name Dates Details Family history of malignant neoplasm of skin(V16.8, Z80.8) Status:Active Unknown Family Member Name Dates Details No pertinent family history: Mother(V49.89, Z78.9) Status:Active Family history of acute myoc ardial infarction: Father(V17.3, Z82.49) Status:Active Family history of coronary a rtery disease: Father(V17.3, Z82.49) Status:Active Family history of diabetes m ellitus: Father(V18.0, Z83.3) Status:Active Family history of cardiac di sorder: Father(V17.49, Z82.49) Status:Active Family history of hypertensi on: Father(V17.49, Z82.49) Status:Active Pulmonary tuberculosis: Fath er Status:Active Family history of malignant neoplasm of skin: Sister(V16.8, Z80.8) Status:Active Unknown Family Member Name Dates Details No pertinent family history: Mother(V49.89, Z78.9) Status:Active Family history of acute myoc ardial infarction: Father(V17.3, Z82.49) Status:Active Family history of coronary a rtery disease: Father(V17.3, Z82.49) Status:Active Family history of diabetes m ellitus: Father(V18.0, Z83.3) Status:Active Family history of cardiac di sorder: Father(V17.49, Z82.49) Status:Active Family history of hypertensi on: Father(V17.49, Z82.49) Status:Active Pulmonary tuberculosis: Fath er Status:Active Family history of malignant neoplasm of skin: Sister(V16.8, Z80.8) Status:Active Unknown Family Member Name Dates Details No pertinent family history: Mother(V49.89, Z78.9) Status:Active Family history of acute myoc ardial infarction: Father(V17.3, Z82.49) Status:Active Family history of coronary a rtery disease: Father(V17.3, Z82.49) Status:Active Family history of diabetes m ellitus: Father(V18.0, Z83.3) Status:Active Family history of cardiac di sorder: Father(V17.49, Z82.49) Status:Active Family history of hypertensi on: Father(V17.49, Z82.49) Status:Active Pulmonary tuberculosis: Fath er Status:Active Family history of malignant neoplasm of skin: Sister(V16.8, Z80.8) Status:Active Unknown Family Member Name Dates Details No pertinent family history: Mother(V49.89, Z78.9) Status:Active Family history of acute myoc ardial infarction: Father(V17.3, Z82.49) Status:Active Family history of coronary a rtery disease: Father(V17.3, Z82.49) Status:Active Family history of diabetes m ellitus: Father(V18.0, Z83.3) Status:Active Family history of cardiac di sorder: Father(V17.49, Z82.49) Status:Active Family history of hypertensi on: Father(V17.49, Z82.49) Status:Active Pulmonary tuberculosis: Fath er Status:Active Family history of malignant neoplasm of skin: Sister(V16.8, Z80.8) Status:Active Unknown Family Member Name Dates Details Family history of malignant neoplasm of skin: Sister(V16.8, Z80.8) Status:Active Pulmonary tuberculosis: Fath er Status:Active Family history of hypertensi on: Father(V17.49, Z82.49) Status:Active Family history of cardiac di sorder: Father(V17.49, Z82.49) Status:Active Family history of diabetes m ellitus: Father(V18.0, Z83.3) Status:Active Family history of coronary a rtery disease: Father(V17.3, Z82.49) Status:Active Family history of acute myoc ardial infarction: Father(V17.3, Z82.49) Status:Active No pertinent family history: Mother(V49.89, Z78.9) Status:Active Unknown Family Member Name Dates Details No pertinent family history: Mother(V49.89, Z78.9) Status:Active Family history of acute myoc ardial infarction: Father(V17.3, Z82.49) Status:Active Family history of coronary a rtery disease: Father(V17.3, Z82.49) Status:Active Family history of diabetes m ellitus: Father(V18.0, Z83.3) Status:Active Family history of cardiac di sorder: Father(V17.49, Z82.49) Status:Active Family history of hypertensi on: Father(V17.49, Z82.49) Status:Active Pulmonary tuberculosis: Fath er Status:Active Family history of malignant neoplasm of skin: Sister(V16.8, Z80.8) Status:Active Unknown Family Member Name Dates Details No pertinent family history: Mother(V49.89, Z78.9) Status:Active Family history of acute myoc ardial infarction: Father(V17.3, Z82.49) Status:Active Family history of coronary a rtery disease: Father(V17.3, Z82.49) Status:Active Family history of diabetes m ellitus: Father(V18.0, Z83.3) Status:Active Family history of cardiac di sorder: Father(V17.49, Z82.49) Status:Active Family history of hypertensi on: Father(V17.49, Z82.49) Status:Active Pulmonary tuberculosis: Fat er Status:Active Family history of malignant neoplasm of skin: Sister(V16.8, Z80.8) Status:Active Unknown Family Member Name Dates Details No pertinent family history: Mother(V49.89, Z78.9) Status:Active Family history of acute myoc ardial infarction: Father(V17.3, Z82.49) Status:Active Family history of coronary a rtery disease: Father(V17.3, Z82.49) Status:Active Family history of diabetes m ellitus: Father(V18.0, Z83.3) Status:Active Family history of cardiac di sorder: Father(V17.49, Z82.49) Status:Active Family history of hypertensi on: Father(V17.49, Z82.49) Status:Active Pulmonary tuberculosis: Fat er Status:Active Family history of malignant neoplasm of skin: Sister(V16.8, Z80.8) Status:Active Unknown Family Member Name Dates Details No pertinent family history: Mother(V49.89, Z78.9) Status:Active Family history of acute myoc ardial infarction: Father(V17.3, Z82.49) Status:Active Family history of coronary a rtery disease: Father(V17.3, Z82.49) Status:Active Family history of diabetes m ellitus: Father(V18.0, Z83.3) Status:Active Family history of cardiac di sorder: Father(V17.49, Z82.49) Status:Active Family history of hypertensi on: Father(V17.49, Z82.49) Status:Active Pulmonary tuberculosis: Fath er Status:Active Family history of malignant neoplasm of skin: Sister(V16.8, Z80.8) Status:Active Unknown Family Member Name Dates Details No pertinent family history: Mother(V49.89, Z78.9) Status:Active Family history of acute myoc ardial infarction: Father(V17.3, Z82.49) Status:Active Family history of coronary a rtery disease: Father(V17.3, Z82.49) Status:Active Family history of diabetes m ellitus: Father(V18.0, Z83.3) Status:Active Family history of cardiac di sorder: Father(V17.49, Z82.49) Status:Active Family history of hypertensi on: Father(V17.49, Z82.49) Status:Active Pulmonary tuberculosis: Fath er Status:Active Family history of malignant neoplasm of skin: Sister(V16.8, Z80.8) Status:Active Unknown Family Member Name Dates Details No pertinent family history: Mother(V49.89, Z78.9) Status:Active Family history of acute myoc ardial infarction: Father(V17.3, Z82.49) Status:Active Family history of coronary a rtery disease: Father(V17.3, Z82.49) Status:Active Family history of diabetes m ellitus: Father(V18.0, Z83.3) Status:Active Family history of cardiac di sorder: Father(V17.49, Z82.49) Status:Active Family history of hypertensi on: Father(V17.49, Z82.49) Status:Active Pulmonary tuberculosis: Fath er Status:Active Family history of malignant neoplasm of skin: Sister(V16.8, Z80.8) Status:Active Unknown Family Member Name Dates Details No pertinent family history: Mother(V49.89, Z78.9) Status:Active Family history of acute myoc ardial infarction: Father(V17.3, Z82.49) Status:Active Family history of coronary a rtery disease: Father(V17.3, Z82.49) Status:Active Family history of diabetes m ellitus: Father(V18.0, Z83.3) Status:Active Family history of cardiac di sorder: Father(V17.49, Z82.49) Status:Active Family history of hypertensi on: Father(V17.49, Z82.49) Status:Active Pulmonary tuberculosis: Fath er Status:Active Family history of malignant neoplasm of skin: Sister(V16.8, Z80.8) Status:Active Unknown Family Member Name Dates Details No pertinent family history: Mother(V49.89, Z78.9) Status:Active Family history of acute myoc ardial infarction: Father(V17.3, Z82.49) Status:Active Family history of coronary a rtery disease: Father(V17.3, Z82.49) Status:Active Family history of diabetes m ellitus: Father(V18.0, Z83.3) Status:Active Family history of cardiac di sorder: Father(V17.49, Z82.49) Status:Active Family history of hypertensi on: Father(V17.49, Z82.49) Status:Active Pulmonary tuberculosis: Fath er Status:Active Family history of malignant neoplasm of skin: Sister(V16.8, Z80.8) Status:Active Unknown Family Member Name Dates Details No pertinent family history: Mother(V49.89, Z78.9) Status:Active Family history of acute myoc ardial infarction: Father(V17.3, Z82.49) Status:Active Family history of coronary a rtery disease: Father(V17.3, Z82.49) Status:Active Family history of diabetes m ellitus: Father(V18.0, Z83.3) Status:Active Family history of cardiac di sorder: Father(V17.49, Z82.49) Status:Active Family history of hypertensi on: Father(V17.49, Z82.49) Status:Active Pulmonary tuberculosis: Fath er Status:Active Family history of malignant neoplasm of skin: Sister(V16.8, Z80.8) Status:Active Unknown Family Member Name Dates Details No pertinent family history: Mother(V49.89, Z78.9) Status:Active Family history of acute myoc ardial infarction: Father(V17.3, Z82.49) Status:Active Family history of coronary a rtery disease: Father(V17.3, Z82.49) Status:Active Family history of diabetes m ellitus: Father(V18.0, Z83.3) Status:Active Family history of cardiac di sorder: Father(V17.49, Z82.49) Status:Active Family history of hypertensi on: Father(V17.49, Z82.49) Status:Active Pulmonary tuberculosis: Fath er Status:Active Family history of malignant neoplasm of skin: Sister(V16.8, Z80.8) Status:Active Unknown Family Member Name Dates Details No pertinent family history: Mother(V49.89, Z78.9) Status:Active Family history of acute myoc ardial infarction: Father(V17.3, Z82.49) Status:Active Family history of coronary a rtery disease: Father(V17.3, Z82.49) Status:Active Family history of diabetes m ellitus: Father(V18.0, Z83.3) Status:Active Family history of cardiac di sorder: Father(V17.49, Z82.49) Status:Active Family history of hypertensi on: Father(V17.49, Z82.49) Status:Active Pulmonary tuberculosis: [facility] er Status:Active Family history of malignant neoplasm of skin: Sister(V16.8, Z80.8) Status:Active Unknown Family Member Name Dates Details No pertinent family history: Mother(V49.89, Z78.9) Status:Active Family history of acute myoc ardial infarction: Father(V17.3, Z82.49) Status:Active Family history of coronary a rtery disease: Father(V17.3, Z82.49) Status:Active Family history of diabetes m ellitus: Father(V18.0, Z83.3) Status:Active Family history of cardiac di sorder: Father(V17.49, Z82.49) Status:Active Family history of hypertensi on: Father(V17.49, Z82.49) Status:Active Pulmonary tuberculosis: [facility] er Status:Active Family history of malignant neoplasm of skin: Sister(V16.8, Z80.8) Status:Active Unknown Family Member Name Dates Details No pertinent family history: Mother(V49.89, Z78.9) Status:Active Family history of acute myoc ardial infarction: Father(V17.3, Z82.49) Status:Active Family history of coronary a rtery disease: Father(V17.3, Z82.49) Status:Active Family history of diabetes m ellitus: Father(V18.0, Z83.3) Status:Active Family history of cardiac di sorder: Father(V17.49, Z82.49) Status:Active Family history of hypertensi on: Father(V17.49, Z82.49) Status:Active Pulmonary tuberculosis: [facility] er Status:Active Family history of malignant neoplasm of skin: Sister(V16.8, Z80.8) Status:Active Unknown Family Member Name Dates Details No pertinent family history: Mother(V49.89, Z78.9) Status:Active Family history of acute myoc ardial infarction: Father(V17.3, Z82.49) Status:Active Family history of coronary a rtery disease: Father(V17.3, Z82.49) Status:Active Family history of diabetes m ellitus: Father(V18.0, Z83.3) Status:Active Family history of cardiac di sorder: Father(V17.49, Z82.49) Status:Active Family history of hypertensi on: Father(V17.49, Z82.49) Status:Active Pulmonary tuberculosis: [facility] er Status:Active Family history of malignant neoplasm of skin: Sister(V16.8, Z80.8) Status:Active Unknown Family Member Name Dates Details No pertinent family history: Mother(V49.89, Z78.9) Status:Active Family history of acute myoc ardial infarction: Father(V17.3, Z82.49) Status:Active Family history of coronary a rtery disease: Father(V17.3, Z82.49) Status:Active Family history of diabetes m ellitus: Father(V18.0, Z83.3) Status:Active Family history of cardiac di sorder: Father(V17.49, Z82.49) Status:Active Family history of hypertensi on: Father(V17.49, Z82.49) Status:Active Pulmonary tuberculosis: Fath er Status:Active Family history of malignant neoplasm of skin: Sister(V16.8, Z80.8) Status:Active Unknown Family Member Name Dates Details No pertinent family history: Mother(V49.89, Z78.9) Status:Active Family history of acute myoc ardial infarction: Father(V17.3, Z82.49) Status:Active Family history of coronary a rtery disease: Father(V17.3, Z82.49) Status:Active Family history of diabetes m ellitus: Father(V18.0, Z83.3) Status:Active Family history of cardiac di sorder: Father(V17.49, Z82.49) Status:Active Family history of hypertensi on: Father(V17.49, Z82.49) Status:Active Pulmonary tuberculosis: [facility] er Status:Active Family history of malignant neoplasm of skin: Sister(V16.8, Z80.8) Status:Active Relationship Condition Age at Onset Recorded Date/T kade Not Specified Diabetes mellitus Unknown Osteoporosis Unknown Autoimmune disorder Unknown Cardiac disease Unknown Malignant melanoma Unknown Myocardial infarction Unknown Hypertension Unknown Unknown Family Member Name Dates Details No pertinent family history: Mother(V49.89, Z78.9) Status:Active Family history of acute myoc ardial infarction: Father(V17.3, Z82.49) Status:Active Family history of coronary a rtery disease: Father(V17.3, Z82.49) Status:Active Family history of diabetes m ellitus: Father(V18.0, Z83.3) Status:Active Family history of cardiac di sorder: Father(V17.49, Z82.49) Status:Active Family history of hypertensi on: Father(V17.49, Z82.49) Status:Active Pulmonary tuberculosis: Fath er Status:Active Family history of malignant neoplasm of skin: Sister(V16.8, Z80.8) Status:Active Unknown Family Member Name Dates Details No pertinent family history: Mother(V49.89, Z78.9) Status:Active Family history of acute myoc ardial infarction: Father(V17.3, Z82.49) Status:Active Family history of coronary a rtery disease: Father(V17.3, Z82.49) Status:Active Family history of diabetes m ellitus: Father(V18.0, Z83.3) Status:Active Family history of cardiac di sorder: Father(V17.49, Z82.49) Status:Active Family history of hypertensi on: Father(V17.49, Z82.49) Status:Active Pulmonary tuberculosis: Fath er Status:Active Family history of malignant neoplasm of skin: Sister(V16.8, Z80.8) Status:Active Unknown Family Member Name Dates Details No pertinent family history: Mother(V49.89, Z78.9) Status:Active Family history of acute myoc ardial infarction: Father(V17.3, Z82.49) Status:Active Family history of coronary a rtery disease: Father(V17.3, Z82.49) Status:Active Family history of diabetes m ellitus: Father(V18.0, Z83.3) Status:Active Family history of cardiac di sorder: Father(V17.49, Z82.49) Status:Active Family history of hypertensi on: Father(V17.49, Z82.49) Status:Active Pulmonary tuberculosis: Fath er Status:Active Family history of malignant neoplasm of skin: Sister(V16.8, Z80.8) Status:Active Unknown Family Member Name Dates Details No pertinent family history: Mother(V49.89, Z78.9) Status:Active Family history of acute myoc ardial infarction: Father(V17.3, Z82.49) Status:Active Family history of coronary a rtery disease: Father(V17.3, Z82.49) Status:Active Family history of diabetes m ellitus: Father(V18.0, Z83.3) Status:Active Family history of cardiac di sorder: Father(V17.49, Z82.49) Status:Active Family history of hypertensi on: Father(V17.49, Z82.49) Status:Active Pulmonary tuberculosis: Fath er Status:Active Family history of malignant neoplasm of skin: Sister(V16.8, Z80.8) Status:Active Unknown Family Member Name Dates Details No pertinent family history: Mother(V49.89, Z78.9) Status:Active Family history of acute myoc ardial infarction: Father(V17.3, Z82.49) Status:Active Family history of coronary a rtery disease: Father(V17.3, Z82.49) Status:Active Family history of diabetes m ellitus: Father(V18.0, Z83.3) Status:Active Family history of cardiac di sorder: Father(V17.49, Z82.49) Status:Active Family history of hypertensi on: Father(V17.49, Z82.49) Status:Active Pulmonary tuberculosis: [facility] er Status:Active Family history of malignant neoplasm of skin: Sister(V16.8, Z80.8) Status:Active Unknown Family Member Name Dates Details No pertinent family history: Mother(V49.89, Z78.9) Status:Active Family history of acute myoc ardial infarction: Father(V17.3, Z82.49) Status:Active Family history of coronary a rtery disease: Father(V17.3, Z82.49) Status:Active Family history of diabetes m ellitus: Father(V18.0, Z83.3) Status:Active Family history of cardiac di sorder: Father(V17.49, Z82.49) Status:Active Family history of hypertensi on: Father(V17.49, Z82.49) Status:Active Pulmonary tuberculosis: [facility] er Status:Active Family history of malignant neoplasm of skin: Sister(V16.8, Z80.8) Status:Active Advance Directives No Advanced Directives Records FoundDocuments on File Type Date 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 NO COMPLICATIONS * LOT [id number] 08/2021 * INJECTED 1ML B12 IM, LT DELTOID. NO COMPLICATIONS * LOT 01/2022 * INJECTED 1ML B12 IM, LT DELTOID. NO COMPLICATIONS * LOT 01/2022 Injected 1 mL B12 Intramuscular, R Deltoid. No Complications LOT [id number] Injected 1 mL B12 Intramuscular, R Deltoid. No Complications LOT 356 * INJECTED 1 ML B12 INTRAMUSCULAR, L DELTOID. NO COMPLICATIONS * LOT [id number] * INJECTED 1 ML B12 INTRAMUSCULAR, L DELTOID. NO COMPLICATIONS * LOT [id number] * INJECTED 1 ML B12 INTRAMUSCULAR, L DELTOID. NO COMPLICATIONS * LOT [id number] [facility]- YEARLY CK GERD. REFILL MEDSMCW- YEARLY CK GERD. REFILL MEDSInjected 1 mL B12 Intramuscular, L Deltoid. No Complications LOT 1134 * INJECTED 1 ML B12 IM RIGHT DELTOID. NO COMPLICATIONS * LOT # [id number] EXP 08/12 * INJECTED 1ML B12 IM, RIGHT DELTOID. NO COMPLICATIONS * LOT: [id number] EXP: 01/12 * INJECTED 1ML B12 IM, RIGHT DELTOID. NO COMPLICATIONS * LOT: [id number] EXP: 01/12 * INJECTED 1ML B12 IM, LEFT DELTOID. NO COMPLICATIONS * LOT: [id number] EXP: 01/12 * INJECTED 1 ML B12 IM RIGHT DELTOID. NO COMPLICATIONS * LOT # [id number] EXP 03/14 * INJECTED 1ML B12 IM, LEFT DELTOID. NO COMPLICATIONS * LOT: [id number] EXP: 07/13 * INJECTED 1 ML B12 IM RIGHT DELTOID. NO COMPLICATIONS * LOT # [id number] EXP 08/13 * INJECTED 1ML B12 IM, LEFT DELTOID. NO COMPLICATIONS * LOT: [id number] EXP: 08/13 * INJECTED 1ML B12 IM, LEFT DELTOID(PER PT REQUEST SINCE SHE JUST RECEIVED COVID BOOSTER IN RIGHT ARM). NO COMPLICATIONS * LOT: [id number] EXP: 09/12 * *NEEDS ABN EACH TIME * INJECTED 1ML B12 IM, RT DELTOID. 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 RECLAST Reason for Visit Autoimmune thyroidit is Osteopenia Prediabetes Vitamin D deficiency Chief Complaint 1 Y FU eorders Reason for Visit Autoimmune thyroidit is Osteopenia Prediabetes Vitamin D deficiency Chief Complaint 1 Y FU eorders RECLAST SCREENING Reason for Visit Autoimmune thyroidit is Osteopenia Prediabetes Vitamin D deficiency Chief Complaint Admit Date RECLAST September 03, 2024 9:18a m Chief Complaint Admit Date RECLAST September 03, 2024 9:18a m 1 Y FU November 26, 2024 1:5 7pm Reason for Referral Specialty Diagnoses / Procedures Referred By Chapis canales Referred To Contact Diagnoses Vitamin B12 deficiency Tamara Ha MD [address] [place] [address] Referral ID Status Reason Start Date Expiration Date V isits Requested Visits Authorized [id number] Pending Review 08/19/2023 08/18/2024 1 1 Specialty Diagnoses / Procedures Referred By Contac t Referred To Contact Primary Care Diagnoses Gastroesophageal reflux disease without esophagitis Atherosclerosis 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 Impaired glucose tolerance Vitamin B12 deficiency Osteopenia, unspecified location Procedures Follow Up In Primary Care - Established Tamara Ha MD [address] [place] [address] Referral ID Status Reason Start Date Expiration Date V isits Requested Visits Authorized [id number] Authorized 08/19/2023 08/18/2024 1 1 Additional Source Comments Reason for Visit (unrecogniz ed section and content) Reason Comments Pain Reason Comments Follow-up Reason Comments Foot Pain R foot pain x 2mos - pt states that the pain is in the 1st MPJ and has a lump on the top of the foot - pt states that she sometimes has pain in the 3rd toe. X-rays taken today. Reason Comments Follow-up 6 mo fu rev labs , b 12 injection Reason Comments Rash Redness, itchy. 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 Impaired glucose tolerance Vitamin B12 deficiency Osteopenia, unspecified location Procedures Follow Up In [place] [address] Referral ID Status Reason Start Date Expiration Date Visits Re quested Visits Authorized [id number] Closed 08/16/2022 02/12/2023 1 1 Reason Comments Excision Specialty Diagnoses / Procedures Referred By Contac t Referred To Contact Dermatology Diagnoses Melanoma of skin (Multi) Mirza Spangler MD [address] [address] Referral ID Status Reason Start Date Expiration Date Visits Requested Visits Authorized [id number] Authorized Specialty Services Required 11/22/2023 03/20/2024 1 1 Reason Comments Medicare Annual Wellness Visit Subsequen t Specialty Diagnoses / Procedures Referred By Contac t Referred To Contact Primary Care Diagnoses Gastroesophageal reflux disease without esophagitis Atherosclerosis 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 Impaired glucose tolerance Vitamin B12 deficiency Osteopenia, unspecified location Procedures Follow Up In Primary Care - Established Tamara Ha MD Phone: tel: fax: Referral ID Status Reason Start Date Expiration Date V isits Requested Visits Authorized [id number] Authorized 08/19/2023 08/18/2024 1 1 Reason Comments Skin Check Specialty Diagnoses / Procedures Referred By Chapis t Referred To Contact Dermatology Diagnoses Screening exam for skin cancer Procedures Follow Up In Dermatology - Established Patient Yuliana Alejandra MD [address] [place] [address] [facility], [place] [address] Phone: tel: fax: Referral ID Status Reason Start Date Expiration Date V isits Requested Visits Authorized [id number] Pending Review 11/19/2023 11/18/2024 1 1 INFORMATION SOURCE (unrecogn ized section and content) DATE CREATED AUTHOR 09/14/2018 [facility] DATE CREATED AUTHOR AUTHOR'S ORGANIZ ATION 02/04/2020 [facility] DATE CREATED AUTHOR AUTHOR'S ORGANIZ ATION 04/03/2021 [facility] DATE CREATED AUTHOR AUTHOR'S ORGANIZ ATION 06/04/2021 [facility] DATE CREATED AUTHOR AUTHOR'S ORGANIZ ATION 01/31/2022 [facility] DATE CREATED AUTHOR AUTHOR'S ORGANIZ ATION 06/16/2022 [facility] DATE CREATED AUTHOR AUTHOR'S ORGANIZ ATION 11/29/2022 [facility] DATE CREATED AUTHOR AUTHOR'S ORGANIZ ATION 02/21/[address] [facility] DATE CREATED AUTHOR AUTHOR'S ORGANIZ ATION 11/27/2024 [facility] DATE CREATED AUTHOR AUTHOR'S ORGANIZ ATION 12/26/2024 [facility] DATE CREATED AUTHOR AUTHOR'S ORGANIZ ATION 03/01/2025 [facility] Ambulatory Goals (unrecognized section and content) Goals may be documented in a n alternate sectionGoals may be documented in an alternate sectionGoals may be documented in an alternate sectionGoals may be documented in an alternate sectionGoals may be documented in an alternate sectionGoals may be documented in an alternate sectionGoals may be documented in an alternate sectionGoals may be documented in an alternate sectionGoals may be documented in an alternate section Care Teams (unrecognized sec tion and content) Precision Inspector Relationship Specialty Start Date End Date Tamara Ha MD [address] [place] [address] PCP - General Family Medicine 09/09/17 Precision Inspector Relationship Specialty Start Date End Date Tamara Ha MD [address] [place] [address] PCP - General 04/22/18 Tamara Ha MD [address] [place] [address] PCP - [employer] Medicare [employer]vantage PCP 04/22/21 Precision Inspector Relationship Specialty Start Date End Date Tamara Ha MD [address] [place] [address] PCP - General 04/22/18 Tamara Ha MD [address] [place] [address] PCP - [employer] Medicare Advantage PCP 04/22/21 Team Status: Active Member Role Status Dates Dr. Tamara Ha MD Family Provider Active Dr. Tamara Ha MD Primary Care Provider Active Team Status: Inactive Member Role Status Dates Dr. Tamara Ha MD Primary Care Provider, Referr ing Provider Active Dr. Refugio Houston MD Attending Provider Active Team Status: Inactive Member Role Status Dates Dr. Tamara Ha MD Primary Care Provider Active Dr. Refugio Houston MD Attending Provider, Referring Provi manav Active Team Status: Active Member Role Status Dates Dr. Tamara Ha MD Primary Care Pr ovider, Attending Provider, Referring Provider Active Team Status: Inactive Member Role Status Dates Dr. Tamara Ha MD Primary Care Pr ovider, Attending Provider, Referring Provider Active Precision Inspector Relationship Specialty Start Date End Date Tamara Ha MD [address] [place] [address] PCP - General 04/22/18 Tamara Ha MD [address] [place] [address] PCP - [employer] Medicare Advantage PCP 04/22/21 [place] [address] [place] [address] Consulting Physician Hematology and Oncology 08/13/23 Precision Inspector Relationship Specialty Start Date End Date Tamara Ha MD [address] [facility] [place] [address] PCP - General 04/22/18 Tamara Ha MD [address] [facility] [place] [address] PCP - [employer] Medicare Advantage PCP 04/22/21 [place] [address] [place] [address] Consulting Physician Hematology and Oncology 08/13/23 Precision Inspector Relationship Specialty Start Date End Date Tamara Ha MD [address] [place] [address] PCP - General 04/22/18 Tamara Ha MD [address] [facility] [place] [address] PCP - [employer] Medicare Advantage PCP 04/22/21 [place] PhD [address] [place] [address] Consulting Physician Hematology and Oncology 08/13/23 Team Status: Inactive Member Role Status Dates Dr. Tamara Ha MD Primary Care Provider Active Start: August 12, 2024 End: August 12, 2024 Dr. Refugio Houston MD Attending Provider Active Sta rt: August 12, 2024 End: August 12, 2024 Dr. Refugio Houston MD Referring Provider Active Sta rt: August 12, 2024 End: August 12, 2024 Precision Inspector Relationship Specialty Start Date End Date Tamara Ha MD [address] [address] PCP - General 04/22/18 Tamara Ha MD [address] [address] PCP - [employer] Medicare Advantage PCP 04/22/21 [place] [address] [place] [address] Consulting Physician Hematology and Oncology 08/13/23 Team Status: Active Member Role Status Dates Dr. Tamara Ha MD Primary Care Provider Active Team Status: Inactive Member Role Status Dates Dr. Tamara Ha MD Primary Care Provider Active Start: September 03, 2024 End: September 03, 2024 Dr. Refugio Houston MD Attending Provider Active Sta rt: September 03, 2024 End: September 03, 2024 Dr. Refugio Houston MD Referring Provider Active Sta rt: September 03, 2024 End: September 03, 2024 Precision Inspector Relationship Specialty Start Date End Date Tamara Ha MD [address] [address] PCP - General 04/22/18 Tamara Ha MD [address] [address] PCP - [employer] Medicare Advantage PCP 04/22/21 Lisa Mckeon [place] PhD [address] [place] [address] Consulting Physician Hematology and Oncology 08/13/23 Team Status: Active Member Role/Relationship Status Dates Dr. Tamara Ha MD Primary Care Provider Active Team Status: Inactive Member Role/Relationship Status Dates Dr. Tamara Ha MD Primary Care Provider Active Start: August 12, 2024 End: August 12, 2024 Dr. Refugio Houston MD Attending Provider Active Sta rt: August 12, 2024 End: August 12, 2024 Dr. Refugio Houston MD Referring Provider Active Sta rt: August 12, 2024 End: August 12, 2024 Team Status: Inactive Member Role/Relationship Status Dates Dr. Tamara Ha MD Primary Care Provider Active Start: September 03, 2024 End: September 03, 2024 Dr. Refugio Houston MD Attending Provider Active Sta rt: September 03, 2024 End: September 03, 2024 Dr. Refugio Houston MD Referring Provider Active Sta rt: September 03, 2024 End: September 03, 2024 Team Status: Inactive Member Role/Relationship Status Dates Dr. Tamara Ha MD Primary Care Provider Active Start: November 26, 2024 End: November 26, 2024 Dr. Tamara Ha MD Referring Provider Active Start: November 26, 2024 End: November 26, 2024 Dr. Refugio Houston MD Attending Provider Active Sta rt: November 26, 2024 End: November 26, 2024 Precision Inspector Relationship Specialty Start Date End Date Tamara Ha MD [address] [address] PCP - General 04/22/18 Tamara Ha MD [address] [address] PCP - [employer] Medicare Advantage PCP 04/22/21 Lisa Mckeon [place] PhD [address] [place] [address] Consulting Physician Hematology and Oncology 08/13/23 FOR RECORDS PERTAINING TO PATIENTS WHO ARE OR HAVE BEEN ENROLLED IN A CHEMICAL DEPENDENCY/SUBSTANCEABUSE PROGRAM, SOME INFORMATION MAY BE OMITTED. This clinical summary was aggregated from multiple sources. Caution should be exercised in using it in the provision of clinical care. This summary normalizes information from multiple sources, and as a consequence, information in this document may materially change the coding, format and clinical context of patient data. In addition, data may be omitted in some cases. CLINICAL DECISIONS SHOULD BE BASED ON THE PRIMARY CLINICAL RECORDS. [employer] [facility]. provides no warranty or guarantee of the accuracy or completeness of information in this document.
== END | disposition home or self-care (01) ==
LOC: OPBI 14:26
PROVIDERS: PCP Family Medicine; Referring Provider Family Medicine; Visit Provider Family Medicine
DX: Z12.31 Encounter for screening mammogram for malignant neoplasm of breast (principal)
CPT/HCPCS: 77063; 77067